=== PATIENT | male | born 1940 ===

== ENCOUNTER 2017-10-25 08:56 | Inpatient (IN) | payer MEDICARE ==
[2017-10-25 09:11] VITALS: BMI 26.4
--- NOTE | 2017-10-25 09:21 | CT ---
PROCEDURE: CT HEAD WITHOUT CONTRAST. HISTORY: Code Stroke COMPARISON: None available. TECHNIQUE: Axial computed tomography images were obtained through the head/brain without intravenous contrast. Radiation dose: Total exam DLP = 1272.05 mGy-cm. This CT exam was performed using one or more of the following dose reduction techniques: Automated exposure control, adjustment of the mA and/or kV according to patient size, and/or use of iterative reconstruction technique. FINDINGS: HEMORRHAGE: No intracranial hemorrhage. BRAIN: Motion artifacts degrade the quality this examination. The garibay-white matter differentiation is well preserved. There is no mass effect or definitive edema pattern appreciate including the cortex. There is expansion of the ventriculosulcal and cisternal spaces however in a pattern most compatible with diffuse cerebral atrophy. No suspicious extra-axial fluid collection is identified in the midline brain anatomy appears grossly nonfocal as imaged. VENTRICLES: Unremarkable. No hydrocephalus. CALVARIUM: Unremarkable. PARANASAL SINUSES: Unremarkable as visualized. No significant inflammatory changes. MASTOID AIR CELLS: Unremarkable as visualized. No inflammatory changes. OTHER FINDINGS: None. IMPRESSION: No CT evidence to suggest intracranial hemorrhage, mass effect or definite ischemic infarction at this time however given clinical history, follow-up CT or MRI is strongly advised as it may be too early to identify an ischemic event. Age-related neuro degenerative changes appear mild. Findings discussed with Dr. Kuhn 10/24/2017, 9:14 a.m..
[2017-10-25 09:32] LABS: BASO # 0.1 K/uL (0.0-0.2); BASO % 0.4 % (0.0-2.0); EOS % 0.2 % (0.0-4.0); HEMATOCRIT 22.4 % (35.0-51.0); LYMPH # 0.8 K/uL (1.0-4.3); LYMPH % 5.5 % (20.0-40.0); MEAN CELL VOLUME 87.1 fL (80.0-94.0); MEAN CORPUSCULAR HEMOGLOBIN 28.4 pg (27.0-31.0); MEAN CORPUSCULAR HGB CONC 32.6 g/dL (33.0-37.0); MEAN PLATELET VOLUME 8.5 fL (7.2-11.7); MONO # 0.9 K/uL (0.0-0.8); MONO % 6.4 % (0.0-10.0); PLATELET COUNT 308 K/uL (130-400); RED CELL DISTRIBUTION WIDTH 14.3 % (11.5-14.5); WHITE BLOOD COUNT 14.8 K/uL (4.8-10.8)
[2017-10-25] MEDS ORDERED: Iodixanol 320 mg/ml 150 ml Bottle IV ONE (09:36)
--- NOTE | 2017-10-25 09:39 | C.PDOC ---
History Of Present Illness 77-year-old male, PMHx includes CVA (w/ residual weakness) and Hypertension, is brought to the emergency department by ALS with complaints of left-sided weakness. Patient found this morning, with left-facial droop and slurred speech. He is unable to speak upon arrival, but able to follow commands. Patient was last known well at 21:30 last night. All other Hx limited due to clinical condition. Time Seen by Provider: 10/25/17 08:59 Chief Complaint (Nursing): Weakness/Neurological Deficit History Per: EMS, Family History/Exam Limitations: Clinical Condition Past Medical History Reviewed: Historical Data, Nursing Documentation, Vital Signs Vital Signs: Last Vital Signs Temp 98.0 F 10/25/17 16:00 Pulse 68 10/25/17 18:00 Resp 30 H 10/25/17 18:00 BP 159/53 H 10/25/17 17:45 Pulse Ox 100 10/25/17 18:00 - Medical History PMH: Depression, HTN Family History: States: No Known Family Hx - Social History Hx Alcohol Use: No (Former) Hx Substance Use: No - Immunization History Hx Tetanus Toxoid Vaccination: No Hx Influenza Vaccination: No Hx Pneumococcal Vaccination: No Review Of Systems Review Of Systems: ROS cannot be obtained secondary to pt's inabilty to answer questions. (CVA) Physical Exam - Physical Exam Appears: Non-toxic, Other (See NIH) Skin: Warm, Dry, No Rash Head: Atraumatic Eye(s): bilateral: Normal Inspection, PERRL Cardiovascular: Rhythm Regular, No Murmur Respiratory: Normal Breath Sounds, No Accessory Muscle Use Neurological/Psych: Other (Left facial droop with left sided weakness. No gaze palsy) ED Course And Treatment - Laboratory Results Result Diagrams: 10/25/17 09:27 10/25/17 09:27 ECG: Interpreted By Me, Viewed By Me ECG Rhythm: Sinus Rhythm ECG Interpretation: No Acute Changes Interpretation Of ECG: LVH. Poor R wave progression and T wave flattening. Rate From EC - Other Rad HEAD/NECK CTA X-Ray: Viewed By Me, Read By Radiologist Interpretation: Accession No. : [id number]. Patient Name / ID : SUE MULLER / [id number]. Exam Date : 10/25/2017 09:05:52 ( Approved ). Study Comment : Sex / Age : M / 77Y. Creator : Dieudonne Douglass MD. Dictator : Dieudonne Douglass MD. Hospital Nursing Assistant : Director Of Mobile Marketing : Dieudonne Douglass MD. Approver2 : Report Date : 10/25/2017 09:19:44. My Comment : . PROCEDURE: CT HEAD WITHOUT CONTRAST. HISTORY: Code Stroke. COMPARISON: None available. TECHNIQUE: Axial computed tomography images were obtained through the head/brain without intravenous contrast. Radiation dose: Total exam DLP = 1272.05 mGy-cm. This CT exam was performed using one or more of the following dose reduction techniques: Automated exposure control, adjustment of the mA and/or kV according to patient size, and/or use of iterative reconstruction technique. FINDINGS: HEMORRHAGE: No intracranial hemorrhage. BRAIN: Motion artifacts degrade the quality this examination. The garibay-white matter differentiation is well preserved. There is no mass effect or definitive edema pattern appreciate including the cortex. There is expansion of the ventriculosulcal and cisternal spaces however in a pattern most compatible with diffuse cerebral atrophy. No suspicious extra-axial fluid collection is identified in the midline brain anatomy appears grossly nonfocal as imaged. VENTRICLES: Unremarkable. No hydrocephalus. CALVARIUM: Unremarkable. PARANASAL SINUSES: Unremarkable as visualized. No significant inflammatory changes. MASTOID AIR CELLS: Unremarkable as visualized. No inflammatory changes. OTHER FINDINGS: None. IMPRESSION: No CT evidence to suggest intracranial hemorrhage, mass effect or definite ischemic infarction at this time however given clinical history, follow-up CT or MRI is strongly advised as it may be too early to identify an ischemic event. Age-related neuro degenerative changes appear mild. Findings discussed with Dr. Kuhn 10/24/2017 , 9:14 a.m.. - CT Scan/US CT HEAD Other Rad Studies (CT/US): Read By Radiologist, Radiology Report Reviewed CT/US Interpretation: Accession No. : [id number]. Patient Name / ID : SUE MULLER / [id number]. Exam Date : 10/25/2017 09:05:52 ( Approved ). Study Comment : Sex / Age : M / 77Y. Creator : Dieudonne Douglass MD. Dictator : Dieudonne Douglass MD. Hospital Nursing Assistant : Director Of Mobile Marketing : Dieudonne Douglass MD. Approver2 : Report Date : 10/25/2017 09:19:44. My Comment : . PROCEDURE: CT HEAD WITHOUT CONTRAST. HISTORY: Code Stroke. COMPARISON: None available. TECHNIQUE: Axial computed tomography images were obtained through the head/brain without intravenous contrast. Radiation dose: Total exam DLP = 1272.05 mGy-cm. This CT exam was performed using one or more of the following dose reduction techniques: Automated exposure control, adjustment of the mA and/or kV according to patient size, and/or use of iterative reconstruction technique. FINDINGS: HEMORRHAGE: No intracranial hemorrhage. BRAIN: Motion artifacts degrade the quality this examination. The garibay-white matter differentiation is well preserved. There is no mass effect or definitive edema pattern appreciate including the cortex. There is expansion of the ventriculosulcal and cisternal spaces however in a pattern most compatible with diffuse cerebral atrophy. No suspicious extra-axial fluid collection is identified in the midline brain anatomy appears grossly nonfocal as imaged. VENTRICLES: Unremarkable. No hydrocephalus. CALVARIUM: Unremarkable. PARANASAL SINUSES: Unremarkable as visualized. No significant inflammatory changes. MASTOID AIR CELLS: Unremarkable as visualized. No inflammatory changes. OTHER FINDINGS: None. IMPRESSION: No CT evidence to suggest intracranial hemorrhage, mass effect or definite ischemic infarction at this time however given clinical history, follow-up CT or MRI is strongly advised as it may be too early to identify an ischemic event. Age-related neuro degenerative changes appear mild. Findings discussed with Dr. Kuhn 10/24/2017 , 9:14 a.m.. Critical Care Time - Critical Care Note Total Time (in mins): 75 Documented critical care: time excludes all time spent performing seperately billable procedures. NIHSS Stroke Scale - Date/Time Evaluation Performed Date Performed: 10/25/17 Time Performed: 09:00 - How Severe is the Stoke Level of Consciousness: 0=Alert LOC to Questions: 1=One correct LOC to commands: 0=Obeys both correctly Best Gaze: 0=Normal Visual: 0=No visual loss Facial: 2=Partial (lower face paralysis) Motor Arm - Left: 3=No effort against gravity (falls immediately) Motor Arm - Right: 0=No drift Motor Leg - Left: 3=No effort against gravity (falls immediately) Motor Leg - Right: 0=No drift Limb Ataxia: 0=Absent Sensory: 1=Mild to moderate loss Best Language: 2=Severe aphasia Dysarthia: 2=Severe, near unintelligible or worse Extinction & Inattention (Neglect): 0=Normal, no object Score: 14 Severity Of Stroke: 5-15= Moderate Stroke rTPA Inclusion/Exclusion - Refusal of Treatment Patient Refused Treatment: No - Inclusion Criteria for Altepase Patient is 18 years or Older: Yes Clinical DX Ischemic Stroke Cause Neurological Deficit: Yes Time of Onset Established Less Than 270 Mins Before TX Begin: No Risk/Benefit Discussed With Patient/Family Member Present: Yes - Exclusion Criteria for Altepase Uncontrolled Hypertension at Time of TX (SBP>185 or DBP>110): No Active Internal Bleeding: No Known Bleeding Diathesis: No Evidence of an Intracranial Hemorrhage: No Evidence Major Acute Infarct w/ Signs Greater Than 1/3 MCA: No Suspicion of Subarachnoid Bleed on PreTX Eval(CT: neg bleed): No - Warning to TPA With Conditions Following Conditions Weighed Against Anticipated Benefit: Yes Condition: Age Greater Than 75 years Medical Decision Making Medical Decision Makin:[address] Brandon, states no intervention at this time; He is requesting CT Head and neck. Plan * Type and Screen * CT Head/Neck * EKG * CMP, HGB A1C, Lipid Panel, Trop I * CBC, PTT, PT * Chest X-Ray * Aspirin * Reassess and Disposition 10:30 ICU called. Pending call back. 11:00 Case was discussed with Dr Nayan Buitrago, who is in ED, evaluating pt at bedside, and is requesting consult for Dr Cunningham Cardiology. Case was discussed w ICU attending , Malathi Concepcion in ED and will admit pt. Patient is not a tpa candidate. Elevated troponin, patient has no chest pain, no st elevation on ekg. Disposition Discussed With Dr.: Christiano Buitrago Doctor Will See Patient In The: ED Counseled Patient/Family Regarding: Studies Performed, Diagnosis - Disposition Disposition: HOSPITALIZED Disposition Time: 11:00 Condition: GUARDED - Clinical Impression Clinical Impression: Acute CVA (cerebrovascular accident), NSTEMI (non-ST elevated myocardial infarction) - Scribe Statement The provider has reviewed the documentation as recorded by the Scribe (Tong Flores) All medical record entries made by the Scribe were at my direction and personally dictated by me. I have reviewed the chart and agree that the record accurately reflects my personal performance of the history, physical exam, medical decision making, and the department course for this patient. I have also personally directed, reviewed, and agree with the discharge instructions and disposition.
[2017-10-25 09:41] LABS: INR 1.1
[2017-10-25 09:47] LABS: ALKALINE PHOSPHATASE 79 U/L (38-126); ALT/SGPT 39 U/L (21-72); AST/SGOT 121 U/L (17-59); BILIRUBIN,TOTAL 0.7 mg/dL (0.2-1.3); BLOOD UREA NITROGEN 28 mg/dL (9-20); CALCIUM 8.2 mg/dl (8.6-10.4); CARBON DIOXIDE 27 mmol/L (22-30); CHLORIDE 102 mmol/L (98-107); CHOLESTEROL 186 mg/dL (0-199); GFR AFRICAN-AMERICAN > 60; GLUCOSE,RANDOM 182 mg/dL (75-110); POTASSIUM 4.2 mmol/L (3.6-5.2); SODIUM 134 mmol/L (132-148); TOTAL PROTEIN 5.9 g/dL (6.3-8.3)
[2017-10-25 09:49] LABS: ALB/GLOB RATIO 1.3 (1.0-2.1)
[2017-10-25 09:58] LABS: BASOPHIL 1 % (0-2); NEUTROPHIL 90 % (50-75); TOTAL CELLS COUNTED 100
[2017-10-25] MEDS ORDERED: Sodium Chloride 0.9% 1,000 ML IV ONE (10:23)
--- NOTE | 2017-10-25 10:24 | CT ---
PROCEDURE: CT Angiography of the Brain. HISTORY: cva COMPARISON: None available. TECHNIQUE: CT angiography of the intracranial and cervical arteries was performed. Coronal and sagittal maximum intensity projection reformated images were generated. IV contrast: Visipaque 320, 100 cc. Radiation dose (DLP): 1059.89 mGy-cm. This CT exam was performed using one or more of the following dose reduction techniques: Automated exposure control, adjustment of the mA and/or kV according to patient size, and/or use of iterative reconstruction technique. FINDINGS: INTERNAL CEREBRAL ARTERIES: Mild nonsignificant stenoses identified at the bilateral internal carotid artery origins due to plaque at the bilateral carotid bulb regions. . The skull base, petrous, cavernous and supraclinoid segments are bilaterally widely patent. ANTERIOR CEREBRAL ARTERIES: Unremarkable. A1 and A2 segments are widely patent. Smaller distal branches unremarkable, as visualized. MIDDLE CEREBRAL ARTERIES: Unremarkable. M1 and M2 segments are widely patent. Perisylvian branches grossly symmetric. POSTERIOR CIRCULATION: Basilar Artery: Unremarkable. Distal Vertebral Arteries: Unremarkable. Posterior Cerebral Arteries: Unremarkable. Posterior Inferior Cerebellar Arteries: Unremarkable. NECK CTA RESULTS: Common carotid arteries: The bilateral common carotid appear widely patent from their origins to their bifurcations with no significant stenosis appreciated. No evidence to suggest common carotid artery dissection. Internal carotid arteries: No significant stenosis is appreciated throughout the cervical internal carotid artery segments bilaterally and there is no evidence of dissection either. Vertebral arteries: The bilateral vertebral arteries appear normal in caliber from their origins to their junction with the basilar artery. Vertebrobasilar system appears left dominant. No significant stenosis or definite pattern of dissection. Incidentally, the bilateral subclavian arteries are widely patent as well as the brachiocephalic artery. ANEURYSM/ VASCULAR MALFORMATIONS: None. OTHER FINDINGS: None. IMPRESSION: Mild atherosclerotic plaques in the bilateral carotid bulb regions causing limited stenosis of the origins of the bilateral charged for without significant stenosis nevertheless. Skullbase bilateral ICA segments appear widely patent as well. Bilateral common carotids are widely patent. [place] arterial vasculature is widely patent without stenosis and appear symmetrical. Left dominant vertebrobasilar system is identified widely patent as well. No arteriovascular malformation or aneurysm identified throughout. Findings discussed with Dr. Barndon 10/25/2017 10:15 a.m..
[2017-10-25] MEDS ORDERED: Sodium Chloride 0.9% 1,000 ML ONE (10:37)
[2017-10-25] MEDS ORDERED: Enoxaparin 80 mg Syringe ONE (11:11)
[2017-10-25] MEDS ORDERED: Enoxaparin 60 mg Syringe SC SCH (11:15)
--- NOTE | 2017-10-25 11:55 | RAD ---
HISTORY: code stroke COMPARISON: No prior. FINDINGS: LUNGS: No active pulmonary disease. PLEURA: No significant pleural effusion identified, no pneumothorax apparent. CARDIOVASCULAR: Patient rotated toward the left accentuating the hilar vascular markings bilaterally. Element of limited CHF is not completely excluded however. OSSEOUS STRUCTURES: No significant abnormalities. VISUALIZED UPPER ABDOMEN: Normal. OTHER FINDINGS: None. IMPRESSION: Questionable limited pulmonary venous congestion/ CHF. No acute infiltrate bilaterally.
[2017-10-25] MEDS ORDERED: Heparin25000 units/250ml 1/2NS 25,000 UNITS/250 ML BAG IV PRN (12:44)
--- NOTE | 2017-10-25 16:17 | CP.PCM.HP ---
History of Present Illness - History of Present Illness History of Present Illness: A 77-year-old male with PMH -CV stroke [with residual weakness], depression and HTN presents with C/Oleft-sided weakness. C/O days left-sided weakness since today morning. Acute onset, rapidly progressive. C/Oleft-sided facial droop since today morning. Acute in onset, rapidly progressive. C/Oslurring of speech since today morning. Acute in onset, rapidly progressive. No C/fever, chills, tinnitus, vertigo, blurring of vision, convulsions, headache, head trauma. Present on Admission - Present on Admission Any Indicators Present on Admission: No Past Patient History - Past Medical History & Family History Past Medical History?: Yes - Past Social History Smoking Status: Former Smoker - CARDIAC Hx Hypertension: Yes - NEUROLOGICAL Hx Neurological Disorder: Yes HX Cerebrovascular Accident: Yes - MUSCULOSKELETAL/RHEUMATOLOGICAL Hx Falls: Yes - PSYCHIATRIC Hx Substance Use: No - ANESTHESIA Hx Anesthesia: No Meds Allergies/Adverse Reactions: Allergies Allergy/AdvReac Type Severity Reaction Status Date / Time No Known Allergies Allergy Verified 10/25/17 12:48 Physical Exam - Constitutional Appears: Well - Head Exam Head Exam: ATRAUMATIC, NORMAL INSPECTION, NORMOCEPHALIC - Eye Exam Eye Exam: EOMI, Normal appearance, PERRL Pupil Exam: NORMAL ACCOMODATION, PERRL - ENT Exam ENT Exam: Mucous Membranes Moist, Normal Exam - Neck Exam Neck exam: Positive for: Normal Inspection - Respiratory Exam Respiratory Exam: Decreased Breath Sounds - Cardiovascular Exam Cardiovascular Exam: REGULAR RHYTHM, +S1, +S2 - GI/Abdominal Exam GI & Abdominal Exam: Diminished Bowel Sounds, Soft - Rectal Exam Rectal Exam: Deferred Results - Vital Signs Recent Vital Signs: Last Vital Signs Temp 97.8 F 10/25/17 12:00 Pulse 67 10/25/17 15:45 Resp 22 10/25/17 15:45 BP 140/70 10/25/17 15:45 Pulse Ox 99 10/25/17 15:45 - Labs Result Diagrams: 10/26/17 07:19 10/26/17 07:19 Labs: Laboratory Results - last 24 hr 10/25/17 10/25/17 10/25/17 09:00 09:27 09:27 WBC 14.8 H RBC 2.57 L Hgb 7.3 L Hct 22.4 L MCV 87.1 MCH 28.4 MCHC 32.6 L RDW 14.3 Plt Count 308 MPV 8.5 Neut % (Auto) 87.5 H Lymph % (Auto) 5.5 L [place] % (Auto) 6.4 Eos % (Auto) 0.2 Baso % (Auto) 0.4 Neut # 13.0 H Lymph # 0.8 L [place] # 0.9 H Eos # 0.0 Baso # 0.1 Neutrophils % (Manual) 90 H Band Neutrophils % 1 Lymphocytes % (Manual) 5 L Monocytes % (Manual) 3 Basophils % (Manual) 1 Platelet Estimate Normal Hypochromasia (manual) Slight PT 11.9 INR 1.1 APTT 25 Sodium 134 Potassium 4.2 Chloride 102 Carbon Dioxide 27 Anion Gap 9 L BUN 28 H Creatinine 1.0 Est GFR ( Amer) > 60 Est GFR (Non-Af Amer) > 60 POC Glucose (mg/dL) Random Glucose 182 H Calcium 8.2 L Total Bilirubin 0.7 AST 121 H ALT 39 Alkaline Phosphatase 79 Troponin I 31.4000 H* Total Protein 5.9 L Albumin 3.4 L Globulin 2.6 Albumin/Globulin Ratio 1.3 Triglycerides 148 Cholesterol 186 LDL Cholesterol Direct 99 HDL Cholesterol 61 Blood Type Antibody Screen 10/25/17 10/25/17 09:27 12:35 WBC RBC Hgb Hct MCV MCH MCHC RDW Plt Count MPV Neut % (Auto) Lymph % (Auto) [place] % (Auto) Eos % (Auto) Baso % (Auto) Neut # Lymph # [place] # Eos # Baso # Neutrophils % (Manual) Band Neutrophils % Lymphocytes % (Manual) Monocytes % (Manual) Basophils % (Manual) Platelet Estimate Hypochromasia (manual) PT INR APTT Sodium Potassium Chloride Carbon Dioxide Anion Gap BUN Creatinine Est GFR ( Amer) Est GFR (Non-Af Amer) POC Glucose (mg/dL) 129 H Random Glucose Calcium Total Bilirubin AST ALT Alkaline Phosphatase Troponin I Total Protein Albumin Globulin Albumin/Globulin Ratio Triglycerides Cholesterol LDL Cholesterol Direct HDL Cholesterol Blood Type O NEGATIVE Antibody Screen Negative
--- NOTE | 2017-10-25 18:03 | CP.PCM.CON ---
History of Present Illness - History of Present Illness History of Present Illness: 77yo M. PMHx multiple CVA's (left sided residual weakness), HTN. Presented with expressive aphasia (new) and left sided hemiparesis, not a candidate for tPA ( out of time window, last seen well prior evening). Also had elevated Troponin' s with no EKG changes, NSTEMI. Review of Systems - Review of Systems All systems: reviewed and no additional remarkable complaints except - Neurological Neurological: Abnormal Speech Past Patient History - Past Medical History & Family History Past Medical History?: Yes - Past Social History Smoking Status: Former Smoker - CARDIAC Hx Hypertension: Yes - NEUROLOGICAL Hx Neurological Disorder: Yes HX Cerebrovascular Accident: Yes - MUSCULOSKELETAL/RHEUMATOLOGICAL Hx Falls: Yes - PSYCHIATRIC Hx Substance Use: No - ANESTHESIA Hx Anesthesia: No Meds Allergies/Adverse Reactions: Allergies Allergy/AdvReac Type Severity Reaction Status Date / Time No Known Allergies Allergy Verified 10/25/17 12:48 - Medications Medications: Current Medications Aspirin (Aspirin Chewable) 81 mg PO DAILY GENNA Enoxaparin Sodium (Lovenox) 75 mg SC Q12H GENNA Sodium Chloride (Sodium Chloride 0.9%) 1,000 mls @ 100 mls/hr IV .Q10H ONE Stop: 10/25/17 20:22 Last Admin: 10/25/17 10:55 Dose: 100 mls/hr Pantoprazole Sodium (Protonix Inj) 40 mg IVP DAILY GENNA Rosuvastatin Calcium (Crestor) 10 mg PO HS GENNA Physical Exam - Head Exam Head Exam: ATRAUMATIC, NORMAL INSPECTION, NORMOCEPHALIC - Eye Exam Eye Exam: EOMI, Normal appearance, PERRL - ENT Exam ENT Exam: Mucous Membranes Moist, Normal Exam - Respiratory Exam Respiratory Exam: Clear to Auscultation Bilateral, NORMAL BREATHING PATTERN - Cardiovascular Exam Cardiovascular Exam: REGULAR RHYTHM - GI/Abdominal Exam GI & Abdominal Exam: Normal Bowel Sounds, Soft. absent: Tenderness - Neurological Exam Neurological exam: Alert Additional comments: expressive aphasia, left sided hemiparesis. - Psychiatric Exam Psychiatric exam: Normal Affect, Normal Mood Results - Vital Signs Recent Vital Signs: Last Vital Signs Temp 98.0 F 10/25/17 16:00 Pulse 73 10/25/17 16:00 Resp 25 H 10/25/17 16:00 BP 140/70 10/25/17 15:45 Pulse Ox 100 10/25/17 16:00 - Labs Result Diagrams: 10/25/17 09:27 10/25/17 09:27 Labs: Laboratory Results - last 24 hr 10/25/17 10/25/17 10/25/17 09:00 09:27 09:27 WBC 14.8 H RBC 2.57 L Hgb 7.3 L Hct 22.4 L MCV 87.1 MCH 28.4 MCHC 32.6 L RDW 14.3 Plt Count 308 MPV 8.5 Neut % (Auto) 87.5 H Lymph % (Auto) 5.5 L [place] % (Auto) 6.4 Eos % (Auto) 0.2 Baso % (Auto) 0.4 Neut # 13.0 H Lymph # 0.8 L [place] # 0.9 H Eos # 0.0 Baso # 0.1 Neutrophils % (Manual) 90 H Band Neutrophils % 1 Lymphocytes % (Manual) 5 L Monocytes % (Manual) 3 Basophils % (Manual) 1 Platelet Estimate Normal Hypochromasia (manual) Slight PT 11.9 INR 1.1 APTT 25 Sodium 134 Potassium 4.2 Chloride 102 Carbon Dioxide 27 Anion Gap 9 L BUN 28 H Creatinine 1.0 Est GFR ( Amer) > 60 Est GFR (Non-Af Amer) > 60 POC Glucose (mg/dL) Random Glucose 182 H Calcium 8.2 L Total Bilirubin 0.7 AST 121 H ALT 39 Alkaline Phosphatase 79 Troponin I 31.4000 H* Total Protein 5.9 L Albumin 3.4 L Globulin 2.6 Albumin/Globulin Ratio 1.3 Triglycerides 148 Cholesterol 186 LDL Cholesterol Direct 99 HDL Cholesterol 61 Blood Type Antibody Screen 10/25/17 10/25/17 10/25/17 09:27 12:35 16:15 WBC RBC Hgb Hct MCV MCH MCHC RDW Plt Count MPV Neut % (Auto) Lymph % (Auto) [place] % (Auto) Eos % (Auto) Baso % (Auto) Neut # Lymph # [place] # Eos # Baso # Neutrophils % (Manual) Band Neutrophils % Lymphocytes % (Manual) Monocytes % (Manual) Basophils % (Manual) Platelet Estimate Hypochromasia (manual) PT INR APTT Sodium Potassium Chloride Carbon Dioxide Anion Gap BUN Creatinine Est GFR ( Amer) Est GFR (Non-Af Amer) POC Glucose (mg/dL) 129 H 145 H Random Glucose Calcium Total Bilirubin AST ALT Alkaline Phosphatase Troponin I Total Protein Albumin Globulin Albumin/Globulin Ratio Triglycerides Cholesterol LDL Cholesterol Direct HDL Cholesterol Blood Type O NEGATIVE Antibody Screen Negative Assessment & Plan (1) NSTEMI (non-ST elevated myocardial infarction) Assessment and Plan: 77yo M. PMHx multiple CVA's (left sided residual weakness), HTN. Presented with new onset stroke symptoms (no tPA) and NSTEMI. Neuro: alert and following commands, expressive aphasia and left sided hemiparesis Pulm: no acute issues, breathing spontaneously on room air CV: hemodynamically stable, ASA, Full dose lovenox, cath when stable. Cardio - Dr. Cunningham Hem: no acute issues Renal: no acute issues, urine output wnl, will monitor Endo: no acute issues GI: heart healthy diet ID: no acute issues DVT proph - full dose lovenox GI proph - protonix Code status - full code Critical Care Time spent 35 minutes Multi-disciplinary rounds were performed with house staff, nursing, speech therapy, respiratory therapy, pharmacy and nutrition with integrated input from the primary team/attending and other consulting services. The documented time is cumulative and includes review of patient data/exams/labs/chart review and examination of the patient on rounds and throughout the day; time is exclusive of any procedures or teaching time. Status: Acute
--- NOTE | 2017-10-25 18:54 | CP.PCM.CON ---
History of Present Illness - History of Present Illness History of Present Illness: Mr. Treva Davison is a 77-year-old man with a past medical history of HTN, DM, previous ischemic strokes, who was last known well last night and was brought in to the ED this morning after he was found with expressive aphasia and worsening left side weakness. He does have some baseline left side weakness as a result of a previous stroke, but it was significantly worse this morning with an NIHSS of 10. He was not a candidate for IV tPA and a CTA of the head/neck did not demonstrate a large vessel occlusion. Labs demonstrated troponins of 31. He was started on Lovenox for treatment of the NSTEMI. Review of Systems - Review of Systems All systems: reviewed and no additional remarkable complaints except Past Patient History - Past Medical History & Family History Past Medical History?: Yes - Past Social History Smoking Status: Former Smoker - CARDIAC Hx Hypertension: Yes - NEUROLOGICAL Hx Neurological Disorder: Yes HX Cerebrovascular Accident: Yes - MUSCULOSKELETAL/RHEUMATOLOGICAL Hx Falls: Yes - PSYCHIATRIC Hx Depression: Yes Hx Substance Use: No - ANESTHESIA Hx Anesthesia: No Meds Allergies/Adverse Reactions: Allergies Allergy/AdvReac Type Severity Reaction Status Date / Time No Known Allergies Allergy Verified 10/25/17 12:48 - Medications Medications: Current Medications Aspirin (Aspirin Chewable) 81 mg PO DAILY [facility] Enoxaparin Sodium (Lovenox) 75 mg SC Q12H [facility] Sodium Chloride (Sodium Chloride 0.9%) 1,000 mls @ 100 mls/hr IV .Q10H ONE Stop: 10/25/17 20:22 Last Admin: 10/25/17 10:55 Dose: 100 mls/hr Pantoprazole Sodium (Protonix Inj) 40 mg IVP DAILY [facility] Last Admin: 10/25/17 18:06 Dose: 40 mg Rosuvastatin Calcium (Crestor) 10 mg PO HS [facility] Physical Exam - Constitutional Appears: Confused - Head Exam Head Exam: ATRAUMATIC, NORMAL INSPECTION, NORMOCEPHALIC - Eye Exam Eye Exam: EOMI, Normal appearance, PERRL - ENT Exam ENT Exam: Mucous Membranes Moist, Normal Exam - Respiratory Exam Respiratory Exam: Clear to Auscultation Bilateral, NORMAL BREATHING PATTERN - Cardiovascular Exam Cardiovascular Exam: REGULAR RHYTHM, +S1, +S2 - GI/Abdominal Exam GI & Abdominal Exam: Normal Bowel Sounds, Soft. absent: Tenderness - Rectal Exam Rectal Exam: Deferred - Extremities Exam Extremities exam: Positive for: normal inspection - Back Exam Back exam: NORMAL INSPECTION - Neurological Exam Neurological exam: Altered, CN II-XII Intact Additional comments: Expressive aphasia, with apparently intact comprehension. He followed commands appropriately. Left facial droop, left upper extremity strength is 0/5 proximally and distally. Left lower extremity strength is 3/5 distally and 2/5 proximally. Right side strength is normal in both upper and lower extremity. NIHSS= 9. Results - Vital Signs Recent Vital Signs: Last Vital Signs Temp 98.0 F 10/25/17 16:00 Pulse 68 10/25/17 18:00 Resp 30 H 10/25/17 18:00 BP 159/53 H 10/25/17 17:45 Pulse Ox 100 10/25/17 18:00 - Labs Result Diagrams: 10/25/17 09:27 10/25/17 09:27 Labs: Laboratory Results - last 24 hr 10/25/17 10/25/17 10/25/17 09:00 09:27 09:27 WBC 14.8 H RBC 2.57 L Hgb 7.3 L Hct 22.4 L MCV 87.1 MCH 28.4 MCHC 32.6 L RDW 14.3 Plt Count 308 MPV 8.5 Neut % (Auto) 87.5 H Lymph % (Auto) 5.5 L [place] % (Auto) 6.4 Eos % (Auto) 0.2 Baso % (Auto) 0.4 Neut # 13.0 H Lymph # 0.8 L [place] # 0.9 H Eos # 0.0 Baso # 0.1 Neutrophils % (Manual) 90 H Band Neutrophils % 1 Lymphocytes % (Manual) 5 L Monocytes % (Manual) 3 Basophils % (Manual) 1 Platelet Estimate Normal Hypochromasia (manual) Slight PT 11.9 INR 1.1 APTT 25 Sodium 134 Potassium 4.2 Chloride 102 Carbon Dioxide 27 Anion Gap 9 L BUN 28 H Creatinine 1.0 Est GFR ( Amer) > 60 Est GFR (Non-Af Amer) > 60 POC Glucose (mg/dL) Random Glucose 182 H Calcium 8.2 L Total Bilirubin 0.7 AST 121 H ALT 39 Alkaline Phosphatase 79 Total Creatine Kinase Troponin I 31.4000 H* Total Protein 5.9 L Albumin 3.4 L Globulin 2.6 Albumin/Globulin Ratio 1.3 Triglycerides 148 Cholesterol 186 LDL Cholesterol Direct 99 HDL Cholesterol 61 Blood Type Antibody Screen 10/25/17 10/25/17 10/25/17 09:27 12:35 16:15 WBC RBC Hgb Hct MCV MCH MCHC RDW Plt Count MPV Neut % (Auto) Lymph % (Auto) [place] % (Auto) Eos % (Auto) Baso % (Auto) Neut # Lymph # [place] # Eos # Baso # Neutrophils % (Manual) Band Neutrophils % Lymphocytes % (Manual) Monocytes % (Manual) Basophils % (Manual) Platelet Estimate Hypochromasia (manual) PT INR APTT Sodium Potassium Chloride Carbon Dioxide Anion Gap BUN Creatinine Est GFR ( Amer) Est GFR (Non-Af Amer) POC Glucose (mg/dL) 129 H 145 H Random Glucose Calcium Total Bilirubin AST ALT Alkaline Phosphatase Total Creatine Kinase Troponin I Total Protein Albumin Globulin Albumin/Globulin Ratio Triglycerides Cholesterol LDL Cholesterol Direct HDL Cholesterol Blood Type O NEGATIVE Antibody Screen Negative 10/25/17 18:15 WBC RBC Hgb Hct MCV MCH MCHC RDW Plt Count MPV Neut % (Auto) Lymph % (Auto) [place] % (Auto) Eos % (Auto) Baso % (Auto) Neut # Lymph # [place] # Eos # Baso # Neutrophils % (Manual) Band Neutrophils % Lymphocytes % (Manual) Monocytes % (Manual) Basophils % (Manual) Platelet Estimate Hypochromasia (manual) PT INR APTT Sodium Potassium Chloride Carbon Dioxide Anion Gap BUN Creatinine Est GFR ( Amer) Est GFR (Non-Af Amer) POC Glucose (mg/dL) Random Glucose Calcium Total Bilirubin AST ALT Alkaline Phosphatase Total Creatine Kinase 401 H Troponin I Total Protein Albumin Globulin Albumin/Globulin Ratio Triglycerides Cholesterol LDL Cholesterol Direct HDL Cholesterol Blood Type Antibody Screen Assessment & Plan (1) Acute CVA (cerebrovascular accident) Assessment and Plan: The patient likely had a cardio-embolic stroke due to NSTEMI. I recommend the followin. Telemetry and ICU admission for close observation and Q1 hour neuro-checks. 2. Continue Lovenox per cardiology for the NSTEMI 3. MRI of the brain without contrast when possible. 4. Echocardiogram with bubble study 5. Lipitor 80 mg dialy 6. PT/OT eval and treatment 7. Check Lipids, HbA1c, TSH, T3/4, B12, folate, homocysteine levels 8. Fluids with NS at 100 mL/hr 9. Permissive HTN (treat BP that is higher than 200/100) 10. Case management consult Thank you. Status: Acute Priority: High (2) NSTEMI (non-ST elevated myocardial infarction) Status: Acute Priority: High
[2017-10-25 18:55] LABS: TROPONIN I 39.3 ng/mL (0.00-0.120)
--- NOTE | 2017-10-25 20:40 | CP.PCM.CON ---
History of Present Illness - History of Present Illness History of Present Illness: 77 Male presented with CVA found to have elevated Troponins Denies chest pain and dyspnea CVA Ischemic Non ST elevation ID ASA 325 daily Plavix 75 daily Statins, B Blockers and Full dose Lovenox Check ECHO Continue to monitor neuro status If no new neuro events Cardiac Cath Thursday 77yo M. PMHx multiple CVA's (left sided residual weakness), HTN. Presented with expressive aphasia (new) and left sided hemiparesis, not a candidate for tPA ( out of time window, last seen well prior evening). Also had elevated Troponin' s with no EKG changes, NSTEMI. Review of Systems - Review of Systems All systems: reviewed and no additional remarkable complaints except - Neurological Neurological: Abnormal Speech Meds Allergies/Adverse Reactions: Allergies Allergy/AdvReac Type Severity Reaction Status Date / Time No Known Allergies Allergy Verified 10/25/17 12:48 - Medications Medications: Current Medications Aspirin (Aspirin Chewable) 81 mg PO DAILY [facility] Enoxaparin Sodium (Lovenox) 75 mg SC Q12H [facility] Sodium Chloride (Sodium Chloride 0.9%) 1,000 mls @ 100 mls/hr IV .Q10H ONE Stop: 10/25/17 20:22 Last Admin: 10/25/17 10:55 Dose: 100 mls/hr Pantoprazole Sodium (Protonix Inj) 40 mg IVP DAILY [facility] Rosuvastatin Calcium (Crestor) 10 mg PO HS [facility] Physical Exam - Head Exam Head Exam: ATRAUMATIC, NORMAL INSPECTION, NORMOCEPHALIC - Eye Exam Eye Exam: EOMI, Normal appearance, PERRL - ENT Exam ENT Exam: Mucous Membranes Moist, Normal Exam - Respiratory Exam Respiratory Exam: Clear to Auscultation Bilateral, NORMAL BREATHING PATTERN - Cardiovascular Exam Cardiovascular Exam: REGULAR RHYTHM - GI/Abdominal Exam GI & Abdominal Exam: Normal Bowel Sounds, Soft. absent: Tenderness - Neurological Exam Neurological exam: Alert Additional comments: expressive aphasia, left sided hemiparesis. - Psychiatric Exam Psychiatric exam: Normal Affect, Normal Mood Past Patient History - Past Medical History & Family History Past Medical History?: Yes - Past Social History Smoking Status: Former Smoker - CARDIAC Hx Hypertension: Yes - NEUROLOGICAL Hx Neurological Disorder: Yes HX Cerebrovascular Accident: Yes - MUSCULOSKELETAL/RHEUMATOLOGICAL Hx Falls: Yes - PSYCHIATRIC Hx Depression: Yes Hx Substance Use: No - ANESTHESIA Hx Anesthesia: No Meds Allergies/Adverse Reactions: Allergies Allergy/AdvReac Type Severity Reaction Status Date / Time No Known Allergies Allergy Verified 10/25/17 12:48 - Medications Medications: Current Medications Aspirin (Aspirin Chewable) 81 mg PO DAILY [facility] Enoxaparin Sodium (Lovenox) 75 mg SC Q12H [facility] Pantoprazole Sodium (Protonix Inj) 40 mg IVP DAILY [facility] Last Admin: 10/25/17 18:06 Dose: 40 mg Rosuvastatin Calcium (Crestor) 10 mg PO HS [facility] Results - Vital Signs Recent Vital Signs: Last Vital Signs Temp 98.2 F 10/25/17 20:00 Pulse 97 H 10/25/17 19:46 Resp 11 L 10/25/17 19:46 BP 107/74 10/25/17 19:47 Pulse Ox 100 10/25/17 20:00 - Labs Result Diagrams: 10/28/17 14:58 10/28/17 03:42 Labs: Laboratory Results - last 24 hr 10/25/17 10/25/17 10/25/17 09:00 09:27 09:27 WBC 14.8 H RBC 2.57 L Hgb 7.3 L Hct 22.4 L MCV 87.1 MCH 28.4 MCHC 32.6 L RDW 14.3 Plt Count 308 MPV 8.5 Neut % (Auto) 87.5 H Lymph % (Auto) 5.5 L [place] % (Auto) 6.4 Eos % (Auto) 0.2 Baso % (Auto) 0.4 Neut # 13.0 H Lymph # 0.8 L [place] # 0.9 H Eos # 0.0 Baso # 0.1 Neutrophils % (Manual) 90 H Band Neutrophils % 1 Lymphocytes % (Manual) 5 L Monocytes % (Manual) 3 Basophils % (Manual) 1 Platelet Estimate Normal Hypochromasia (manual) Slight PT 11.9 INR 1.1 APTT 25 Sodium 134 Potassium 4.2 Chloride 102 Carbon Dioxide 27 Anion Gap 9 L BUN 28 H Creatinine 1.0 Est GFR ( Amer) > 60 Est GFR (Non-Af Amer) > 60 POC Glucose (mg/dL) Random Glucose 182 H Calcium 8.2 L Total Bilirubin 0.7 AST 121 H ALT 39 Alkaline Phosphatase 79 Total Creatine Kinase CK-MB (Mass) Troponin I 31.4000 H* Total Protein 5.9 L Albumin 3.4 L Globulin 2.6 Albumin/Globulin Ratio 1.3 Triglycerides 148 Cholesterol 186 LDL Cholesterol Direct 99 HDL Cholesterol 61 Blood Type Antibody Screen 10/25/17 10/25/17 10/25/17 09:27 12:35 16:15 WBC RBC Hgb Hct MCV MCH MCHC RDW Plt Count MPV Neut % (Auto) Lymph % (Auto) [place] % (Auto) Eos % (Auto) Baso % (Auto) Neut # Lymph # [place] # Eos # Baso # Neutrophils % (Manual) Band Neutrophils % Lymphocytes % (Manual) Monocytes % (Manual) Basophils % (Manual) Platelet Estimate Hypochromasia (manual) PT INR APTT Sodium Potassium Chloride Carbon Dioxide Anion Gap BUN Creatinine Est GFR ( Amer) Est GFR (Non-Af Amer) POC Glucose (mg/dL) 129 H 145 H Random Glucose Calcium Total Bilirubin AST ALT Alkaline Phosphatase Total Creatine Kinase CK-MB (Mass) Troponin I Total Protein Albumin Globulin Albumin/Globulin Ratio Triglycerides Cholesterol LDL Cholesterol Direct HDL Cholesterol Blood Type O NEGATIVE Antibody Screen Negative 10/25/17 18:15 WBC RBC Hgb Hct MCV MCH MCHC RDW Plt Count MPV Neut % (Auto) Lymph % (Auto) [place] % (Auto) Eos % (Auto) Baso % (Auto) Neut # Lymph # [place] # Eos # Baso # Neutrophils % (Manual) Band Neutrophils % Lymphocytes % (Manual) Monocytes % (Manual) Basophils % (Manual) Platelet Estimate Hypochromasia (manual) PT INR APTT Sodium Potassium Chloride Carbon Dioxide Anion Gap BUN Creatinine Est GFR ( Amer) Est GFR (Non-Af Amer) POC Glucose (mg/dL) Random Glucose Calcium Total Bilirubin AST ALT Alkaline Phosphatase Total Creatine Kinase 401 H CK-MB (Mass) 42.0 H Troponin I 39.3000 H* Total Protein Albumin Globulin Albumin/Globulin Ratio Triglycerides Cholesterol LDL Cholesterol Direct HDL Cholesterol Blood Type Antibody Screen Assessment & Plan - Assessment and Plan (Free Text) Assessment: 77yo M. PMHx multiple CVA's (left sided residual weakness), HTN. Presented with new onset stroke symptoms (no tPA) and NSTEMI. Denies chest pain and dyspnea CVA Ischemic Non ST elevation ID ASA 325 daily Plavix 75 daily Statins, B Blockers and Full dose Lovenox Check ECHO Continue to monitor neuro status If no new neuro events Cardiac Cath Thursday Neuro: alert and following commands, expressive aphasia and left sided hemiparesis Pulm: no acute issues, breathing spontaneously on room air CV: hemodynamically stable, ASA, Full dose lovenox, cath when stable. Cardio - Dr. Cunningham Hem: no acute issues Renal: no acute issues, urine output wnl, will monitor Endo: no acute issues GI: heart healthy diet ID: no acute issues DVT proph - full dose lovenox GI proph - protonix Code status - full code
[2017-10-25] MEDS: Enoxaparin 80 mg Syringe SC SCH (22:57)
[2017-10-26 06:45] LABS: TROPONIN I 25.3 ng/mL (0.00-0.120)
[2017-10-26 07:37] LABS: EOS % 0.6 % (0.0-4.0); LYMPH # 0.8 K/uL (1.0-4.3); MONO # 0.6 K/uL (0.0-0.8); PLATELET COUNT 208 K/uL (130-400); RED CELL DISTRIBUTION WIDTH 14.8 % (11.5-14.5)
[2017-10-26 07:45] LABS: BASO % 0.5 % (0.0-2.0); HEMATOCRIT 19.3 % (35.0-51.0); LYMPH % 9.6 % (20.0-40.0); MEAN CELL VOLUME 88.6 fL (80.0-94.0); MEAN CORPUSCULAR HEMOGLOBIN 29.7 pg (27.0-31.0); MEAN CORPUSCULAR HGB CONC 33.6 g/dL (33.0-37.0); MEAN PLATELET VOLUME 9.7 fL (7.2-11.7); MONO % 7.1 % (0.0-10.0); NRBC % 0.1 % (0.0-2.0); WHITE BLOOD COUNT 8.5 K/uL (4.8-10.8)
[2017-10-26 08:13] LABS: ALB/GLOB RATIO 1.3 (1.0-2.1); ALKALINE PHOSPHATASE 63 U/L (38-126); ALT/SGPT 40 U/L (21-72); AST/SGOT 72 U/L (17-59); BILIRUBIN,TOTAL 0.5 mg/dL (0.2-1.3); BLOOD UREA NITROGEN 23 mg/dL (9-20); CALCIUM 7.8 mg/dl (8.6-10.4); CARBON DIOXIDE 27 mmol/L (22-30); CHLORIDE 107 mmol/L (98-107); GFR AFRICAN-AMERICAN > 60; GLUCOSE,RANDOM 126 mg/dL (75-110); POTASSIUM 4.2 mmol/L (3.6-5.2); SODIUM 138 mmol/L (132-148)
[2017-10-26 09:27] LABS: EOSINOPHIL 2 % (0-4); TOTAL CELLS COUNTED 100
[2017-10-26 09:28] LABS: NEUTROPHIL 86 % (50-75)
[2017-10-26] MEDS: Enoxaparin 80 mg Syringe SC SCH (11:32)
--- NOTE | 2017-10-26 12:08 | CT ---
PROCEDURE: CT HEAD WITHOUT CONTRAST. HISTORY: repeat head ct - prev code stroke COMPARISON: 10/25/2017 TECHNIQUE: Axial computed tomography images were obtained through the head/brain without intravenous contrast. Radiation dose: Total exam DLP = 2217.90 mGy-cm. This CT exam was performed using one or more of the following dose reduction techniques: Automated exposure control, adjustment of the mA and/or kV according to patient size, and/or use of iterative reconstruction technique. FINDINGS: HEMORRHAGE: No intracranial hemorrhage. BRAIN: No mass effect or edema. Mild to moderate diffuse age-appropriate cerebral atrophy. There is moderate to severe chronic periventricular white matter lucency with patchy and confluent deep and subcortical white matter lucency, consistent with microvascular ischemic change. There is no evidence of acute infarct. VENTRICLES: Unremarkable. No hydrocephalus. CALVARIUM: Unremarkable. PARANASAL SINUSES: Chronic left maxillary sinusitis with almost complete opacification of the left maxillary antrum. MASTOID AIR CELLS: Unremarkable as visualized. No inflammatory changes. OTHER FINDINGS: None. IMPRESSION: No evidence of acute infarct. No intracranial mass or hemorrhage. Age related atrophy and chronic white matter ischemic change. Chronic left maxillary sinusitis.
--- NOTE | 2017-10-26 12:46 | CP.PCM.PN ---
Subjective - Date & Time of Evaluation Date of Evaluation: 10/26/17 Time of Evaluation: 12:43 - Subjective Subjective: Mr. Treva Davison was seen and examined at the bedside in the ICU. He is alert, oriented. He is able to answer questions appropriately. speech is clear, follows simple commands. At present, he is receiving PRBC due to his low hgb. There was no untoward events overnight. Objective - Vital Signs/Intake and Output Vital Signs (last 24 hours): Temp Pulse Resp BP Pulse Ox 98 F 72 28 H 166/75 H 99 10/26/17 12:18 10/26/17 12:18 10/26/17 12:18 10/26/17 12:18 10/26/17 11:48 Intake and Output: 10/26/17 10/26/17 06:59 18:59 Intake Total 1200 50 Balance 1200 50 - Medications Medications: Current Medications Aspirin (Aspirin Chewable) 81 mg PO DAILY [facility] Last Admin: 10/26/17 10:24 Dose: 81 mg Enoxaparin Sodium (Lovenox) 75 mg SC Q12H [facility] Last Admin: 10/26/17 11:32 Dose: 75 mg Pantoprazole Sodium (Protonix Inj) 40 mg IVP DAILY [facility] Last Admin: 10/26/17 09:47 Dose: 40 mg Rosuvastatin Calcium (Crestor) 10 mg PO HS [facility] - Labs Labs: 10/26/17 07:19 10/26/17 07:19 PT 11.9 SECONDS (9.7-12.2) 10/25/17 09:00 INR 1.1 10/25/17 09:00 APTT 25 SECONDS (21-34) 10/25/17 09:00 - Constitutional Appears: No Acute Distress - Head Exam Head Exam: ATRAUMATIC - Neurological Exam Neurological Exam: Alert, Awake, CN II-XII Intact Neuro motor strength exam: Left Upper Extremity: 3, Right Upper Extremity: 5, Left Lower Extremity: 4, Right Lower Extremity: 5 Additional comments: NIHSS-4, According to staff , speech is more clear in comparison from yesterday. He is still a left arm drift. Sensation is asymmetrical. Assessment and Plan - Assessment and Plan (Free Text) Assessment: CVA Case discussed with Dr. Brandon, continue all current medical, physical, and occupational regimen. recommend MRI of the brain when possible post blood transfusion.
--- NOTE | 2017-10-26 12:46 | CP.CCUPN ---
CCU Subjective - Physician Review Subjective (Free Text): PGY1 ICU Progress Note for Dr. Rogel Patient seen and examined at bedside this morning. Patient is awake and alert with family at bedside. Patient's daughter answered most of the questions for the patient due to language barrier, but patient answered questions appropriately. He was able to follow simple commands. He did not have any complaints at this time. CCU Objective - Vital Signs / Intake & Output Vital Signs (Last 4 hours): Vital Signs Temp Pulse Resp BP Pulse Ox 10/26/17 12:18 98 F 72 28 H 166/75 H 10/26/17 12:03 97.8 F 71 26 H 153/69 H 10/26/17 11:48 98.9 F 70 28 H 153/69 H 99 10/26/17 11:11 78 17 10/26/17 11:09 148/81 10/26/17 10:52 78 100 10/26/17 10:45 80 29 H 148/81 99 10/26/17 10:00 90 20 100 10/26/17 09:53 80 27 H 110/48 L 100 10/26/17 09:44 69 26 H 110/48 L 100 10/26/17 09:00 76 19 100 10/26/17 08:44 74 24 131/56 L 100 Intake and Output (Last 8hrs): Intake & Output 10/25/17 10/26/17 10/26/17 22:59 06:59 14:59 Intake Total 800 800 50 Balance 800 800 50 Weight 162 lb Intake: Intake, IV Amount 800 800 0 Right Antecubital 800 800 0 Oral 0 0 50 Blood Product 0 Red Blood Cells Cpd As1 0 Lr Unit [id number] Other: # Voids Urine, Voided 1 1 0 # Bowel Movements 0 0 - Physical Exam Head: Positive for: Atraumatic, Normocephalic Pupils: Positive for: PERRL Extroacular Muscles: Positive for: EOMI Mouth: Positive for: Moist Mucous Membranes Respiratory/Chest: Positive for: Clear to Auscultation, Good Air Exchange. Negative for: Respiratory Distress, Accessory Muscle Use Cardiovascular: Positive for: Regular Rate and Rhythm Abdomen: Positive for: Normal Bowel Sounds. Negative for: Tenderness, Distention Neurological: Positive for: Other (left arm drift (baseline deficit from previous stroke)). Negative for: Speech Normal (improving) Skin: Positive for: Warm, Dry Psychiatric: Positive for: Alert, Oriented x 3 - Medications Active Medications: Active Medications Generic Name Dose Route Start Last Admin Trade Name Joanna PRN Reason Stop Dose Admin Aspirin 81 mg 10/26/17 10:00 10/26/17 10:24 Aspirin Chewable PO 81 mg DAILY GENNA Administration Enoxaparin Sodium 75 mg 10/25/17 22:00 10/26/17 11:32 Lovenox SC 75 mg Q12H GENNA Administration Pantoprazole Sodium 40 mg 10/25/17 17:15 10/26/17 09:47 Protonix Inj IVP 40 mg DAILY GENNA Administration Rosuvastatin Calcium 10 mg 10/26/17 22:00 Crestor PO HS GENNA - Patient Studies Lab Studies: Lab Studies 10/26/17 10/26/17 10/26/17 Range/Units 11:39 07:36 07:19 WBC (4.8-10.8) K/uL RBC (4.40-5.90) Mil/uL Hgb (12.0-18.0) g/dL Hct (35.0-51.0) % MCV (80.0-94.0) fL MCH (27.0-31.0) pg MCHC (33.0-37.0) g/dL RDW (11.5-14.5) % Plt Count (130-400) K/uL MPV (7.2-11.7) fL Neut % (Auto) (50.0-75.0) % Lymph % (Auto) (20.0-40.0) % [place] % (Auto) (0.0-10.0) % Eos % (Auto) (0.0-4.0) % Baso % (Auto) (0.0-2.0) % Neut # (1.8-7.0) K/uL Lymph # (1.0-4.3) K/uL [place] # (0.0-0.8) K/uL Eos # (0.0-0.7) K/uL Baso # (0.0-0.2) K/uL Neutrophils % (Manual) (50-75) % Band Neutrophils % (0-2) % Lymphocytes % (Manual) (20-40) % Monocytes % (Manual) (0-10) % Eosinophils % (Manual) (0-4) % Platelet Estimate (NORMAL) Polychromasia Hypochromasia (manual) Ovalocytes Sodium 138 (132-148) mmol/L Potassium 4.2 (3.6-5.2) mmol/L Chloride 107 (98-107) mmol/L Carbon Dioxide 27 (22-30) mmol/L Anion Gap 9 L (10-20) BUN 23 H (9-20) mg/dL Creatinine 1.0 (0.8-1.5) mg/dL Est GFR ( Amer) > 60 Est GFR (Non-Af Amer) > 60 POC Glucose (mg/dL) 168 H 142 H (65-110) mg/dL Random Glucose 126 H (75-110) mg/dL Hemoglobin A1c (4.2-6.5) % Calcium 7.8 L (8.6-10.4) mg/dl Total Bilirubin 0.5 (0.2-1.3) mg/dL AST 72 H D (17-59) U/L ALT 40 (21-72) U/L Alkaline Phosphatase 63 (38-126) U/L Total Creatine Kinase (55-170) U/L CK-MB (Mass) (0.0-3.38) ng/mL Troponin I (0.00-0.120) ng/mL Total Protein 5.0 L (6.3-8.3) g/dL Albumin 2.8 L (3.5-5.0) g/dL Globulin 2.2 (2.2-3.9) gm/dL Albumin/Globulin Ratio 1.3 (1.0-2.1) Blood Type Antibody Screen 10/26/17 10/26/17 10/26/17 Range/Units 07:19 06:12 00:52 WBC 8.5 (4.8-10.8) K/uL RBC 2.18 L (4.40-5.90) Mil/uL Hgb 6.5 L* (12.0-18.0) g/dL Hct 19.3 L (35.0-51.0) % MCV 88.6 (80.0-94.0) fL MCH 29.7 (27.0-31.0) pg MCHC 33.6 (33.0-37.0) g/dL RDW 14.8 H (11.5-14.5) % Plt Count 208 D (130-400) K/uL MPV 9.7 (7.2-11.7) fL Neut % (Auto) 82.2 H (50.0-75.0) % Lymph % (Auto) 9.6 L (20.0-40.0) % [place] % (Auto) 7.1 (0.0-10.0) % Eos % (Auto) 0.6 (0.0-4.0) % Baso % (Auto) 0.5 (0.0-2.0) % Neut # 7.0 (1.8-7.0) K/uL Lymph # 0.8 L (1.0-4.3) K/uL [place] # 0.6 (0.0-0.8) K/uL Eos # 0.0 (0.0-0.7) K/uL Baso # 0.0 (0.0-0.2) K/uL Neutrophils % (Manual) 86 H (50-75) % Band Neutrophils % 1 (0-2) % Lymphocytes % (Manual) 7 L (20-40) % Monocytes % (Manual) 4 (0-10) % Eosinophils % (Manual) 2 (0-4) % Platelet Estimate Normal (NORMAL) Polychromasia Slight Hypochromasia (manual) Slight Ovalocytes Slight Sodium (132-148) mmol/L Potassium (3.6-5.2) mmol/L Chloride (98-107) mmol/L Carbon Dioxide (22-30) mmol/L Anion Gap (10-20) BUN (9-20) mg/dL Creatinine (0.8-1.5) mg/dL Est GFR ( Amer) Est GFR (Non-Af Amer) POC Glucose (mg/dL) 146 H (65-110) mg/dL Random Glucose (75-110) mg/dL Hemoglobin A1c (4.2-6.5) % Calcium (8.6-10.4) mg/dl Total Bilirubin (0.2-1.3) mg/dL AST (17-59) U/L ALT (21-72) U/L Alkaline Phosphatase (38-126) U/L Total Creatine Kinase 214 H (55-170) U/L CK-MB (Mass) 17.6 H (0.0-3.38) ng/mL Troponin I 25.3000 H* (0.00-0.120) ng/mL Total Protein (6.3-8.3) g/dL Albumin (3.5-5.0) g/dL Globulin (2.2-3.9) gm/dL Albumin/Globulin Ratio (1.0-2.1) Blood Type Antibody Screen 10/25/17 10/25/17 10/25/17 Range/Units 18:15 16:15 09:27 WBC (4.8-10.8) K/uL RBC (4.40-5.90) Mil/uL Hgb (12.0-18.0) g/dL Hct (35.0-51.0) % MCV (80.0-94.0) fL MCH (27.0-31.0) pg MCHC (33.0-37.0) g/dL RDW (11.5-14.5) % Plt Count (130-400) K/uL MPV (7.2-11.7) fL Neut % (Auto) (50.0-75.0) % Lymph % (Auto) (20.0-40.0) % [place] % (Auto) (0.0-10.0) % Eos % (Auto) (0.0-4.0) % Baso % (Auto) (0.0-2.0) % Neut # (1.8-7.0) K/uL Lymph # (1.0-4.3) K/uL [place] # (0.0-0.8) K/uL Eos # (0.0-0.7) K/uL Baso # (0.0-0.2) K/uL Neutrophils % (Manual) (50-75) % Band Neutrophils % (0-2) % Lymphocytes % (Manual) (20-40) % Monocytes % (Manual) (0-10) % Eosinophils % (Manual) (0-4) % Platelet Estimate (NORMAL) Polychromasia Hypochromasia (manual) Ovalocytes Sodium (132-148) mmol/L Potassium (3.6-5.2) mmol/L Chloride (98-107) mmol/L Carbon Dioxide (22-30) mmol/L Anion Gap (10-20) BUN (9-20) mg/dL Creatinine (0.8-1.5) mg/dL Est GFR ( Amer) Est GFR (Non-Af Amer) POC Glucose (mg/dL) 145 H (65-110) mg/dL Random Glucose (75-110) mg/dL Hemoglobin A1c (4.2-6.5) % Calcium (8.6-10.4) mg/dl Total Bilirubin (0.2-1.3) mg/dL AST (17-59) U/L ALT (21-72) U/L Alkaline Phosphatase (38-126) U/L Total Creatine Kinase 401 H (55-170) U/L CK-MB (Mass) 42.0 H (0.0-3.38) ng/mL Troponin I 39.3000 H* (0.00-0.120) ng/mL Total Protein (6.3-8.3) g/dL Albumin (3.5-5.0) g/dL Globulin (2.2-3.9) gm/dL Albumin/Globulin Ratio (1.0-2.1) Blood Type O NEGATIVE Antibody Screen Negative 10/25/17 Range/Units 09:27 WBC (4.8-10.8) K/uL RBC (4.40-5.90) Mil/uL Hgb (12.0-18.0) g/dL Hct (35.0-51.0) % MCV (80.0-94.0) fL MCH (27.0-31.0) pg MCHC (33.0-37.0) g/dL RDW (11.5-14.5) % Plt Count (130-400) K/uL MPV (7.2-11.7) fL Neut % (Auto) (50.0-75.0) % Lymph % (Auto) (20.0-40.0) % [place] % (Auto) (0.0-10.0) % Eos % (Auto) (0.0-4.0) % Baso % (Auto) (0.0-2.0) % Neut # (1.8-7.0) K/uL Lymph # (1.0-4.3) K/uL [place] # (0.0-0.8) K/uL Eos # (0.0-0.7) K/uL Baso # (0.0-0.2) K/uL Neutrophils % (Manual) (50-75) % Band Neutrophils % (0-2) % Lymphocytes % (Manual) (20-40) % Monocytes % (Manual) (0-10) % Eosinophils % (Manual) (0-4) % Platelet Estimate (NORMAL) Polychromasia Hypochromasia (manual) Ovalocytes Sodium (132-148) mmol/L Potassium (3.6-5.2) mmol/L Chloride (98-107) mmol/L Carbon Dioxide (22-30) mmol/L Anion Gap (10-20) BUN (9-20) mg/dL Creatinine (0.8-1.5) mg/dL Est GFR ( Amer) Est GFR (Non-Af Amer) POC Glucose (mg/dL) (65-110) mg/dL Random Glucose (75-110) mg/dL Hemoglobin A1c 7.2 H (4.2-6.5) % Calcium (8.6-10.4) mg/dl Total Bilirubin (0.2-1.3) mg/dL AST (17-59) U/L ALT (21-72) U/L Alkaline Phosphatase (38-126) U/L Total Creatine Kinase (55-170) U/L CK-MB (Mass) (0.0-3.38) ng/mL Troponin I (0.00-0.120) ng/mL Total Protein (6.3-8.3) g/dL Albumin (3.5-5.0) g/dL Globulin (2.2-3.9) gm/dL Albumin/Globulin Ratio (1.0-2.1) Blood Type Antibody Screen Laboratory Results - last 24 hr 10/25/17 10/25/17 10/25/17 09:27 09:27 16:15 WBC RBC Hgb Hct MCV MCH MCHC RDW Plt Count MPV Neut % (Auto) Lymph % (Auto) [place] % (Auto) Eos % (Auto) Baso % (Auto) Neut # Lymph # [place] # Eos # Baso # Neutrophils % (Manual) Band Neutrophils % Lymphocytes % (Manual) Monocytes % (Manual) Eosinophils % (Manual) Platelet Estimate Polychromasia Hypochromasia (manual) Ovalocytes Sodium Potassium Chloride Carbon Dioxide Anion Gap BUN Creatinine Est GFR ( Amer) Est GFR (Non-Af Amer) POC Glucose (mg/dL) 145 H Random Glucose Hemoglobin A1c 7.2 H Calcium Total Bilirubin AST ALT Alkaline Phosphatase Total Creatine Kinase CK-MB (Mass) Troponin I Total Protein Albumin Globulin Albumin/Globulin Ratio Blood Type O NEGATIVE Antibody Screen Negative 10/25/17 10/26/17 10/26/17 18:15 00:52 06:12 WBC RBC Hgb Hct MCV MCH MCHC RDW Plt Count MPV Neut % (Auto) Lymph % (Auto) [place] % (Auto) Eos % (Auto) Baso % (Auto) Neut # Lymph # [place] # Eos # Baso # Neutrophils % (Manual) Band Neutrophils % Lymphocytes % (Manual) Monocytes % (Manual) Eosinophils % (Manual) Platelet Estimate Polychromasia Hypochromasia (manual) Ovalocytes Sodium Potassium Chloride Carbon Dioxide Anion Gap BUN Creatinine Est GFR ( Amer) Est GFR (Non-Af Amer) POC Glucose (mg/dL) 146 H Random Glucose Hemoglobin A1c Calcium Total Bilirubin AST ALT Alkaline Phosphatase Total Creatine Kinase 401 H 214 H CK-MB (Mass) 42.0 H 17.6 H Troponin I 39.3000 H* 25.3000 H* Total Protein Albumin Globulin Albumin/Globulin Ratio Blood Type Antibody Screen 10/26/17 10/26/17 10/26/17 07:19 07:19 07:36 WBC 8.5 RBC 2.18 L Hgb 6.5 L* Hct 19.3 L MCV 88.6 MCH 29.7 MCHC 33.6 RDW 14.8 H Plt Count 208 D MPV 9.7 Neut % (Auto) 82.2 H Lymph % (Auto) 9.6 L [place] % (Auto) 7.1 Eos % (Auto) 0.6 Baso % (Auto) 0.5 Neut # 7.0 Lymph # 0.8 L [place] # 0.6 Eos # 0.0 Baso # 0.0 Neutrophils % (Manual) 86 H Band Neutrophils % 1 Lymphocytes % (Manual) 7 L Monocytes % (Manual) 4 Eosinophils % (Manual) 2 Platelet Estimate Normal Polychromasia Slight Hypochromasia (manual) Slight Ovalocytes Slight Sodium 138 Potassium 4.2 Chloride 107 Carbon Dioxide 27 Anion Gap 9 L BUN 23 H Creatinine 1.0 Est GFR ( Amer) > 60 Est GFR (Non-Af Amer) > 60 POC Glucose (mg/dL) 142 H Random Glucose 126 H Hemoglobin A1c Calcium 7.8 L Total Bilirubin 0.5 AST 72 H D ALT 40 Alkaline Phosphatase 63 Total Creatine Kinase CK-MB (Mass) Troponin I Total Protein 5.0 L Albumin 2.8 L Globulin 2.2 Albumin/Globulin Ratio 1.3 Blood Type Antibody Screen 10/26/17 11:39 WBC RBC Hgb Hct MCV MCH MCHC RDW Plt Count MPV Neut % (Auto) Lymph % (Auto) [place] % (Auto) Eos % (Auto) Baso % (Auto) Neut # Lymph # [place] # Eos # Baso # Neutrophils % (Manual) Band Neutrophils % Lymphocytes % (Manual) Monocytes % (Manual) Eosinophils % (Manual) Platelet Estimate Polychromasia Hypochromasia (manual) Ovalocytes Sodium Potassium Chloride Carbon Dioxide Anion Gap BUN Creatinine Est GFR ( Amer) Est GFR (Non-Af Amer) POC Glucose (mg/dL) 168 H Random Glucose Hemoglobin A1c Calcium Total Bilirubin AST ALT Alkaline Phosphatase Total Creatine Kinase CK-MB (Mass) Troponin I Total Protein Albumin Globulin Albumin/Globulin Ratio Blood Type Antibody Screen EKG/Cardiology Studies: Cardiology / EKG Studies 10/25/17 17:30 ELECTROCARDIOGRAM Routine Comment: Mode Of Transportation: PORTABLE Reason For Exam: NSTEMI 10/26/17 01:30 EKG [ELECTROCARDIOGRAM] Routine Comment: Mode Of Transportation: PORTABLE Reason For Exam: NSTEMI Fingerstick Blood Sugar Results: 142 Review of Systems - Review of Systems All systems: reviewed and no additional remarkable complaints except (as per HPI ) Critical Care Progress Note - Nutrition Nutrition: Nutrition Category Date Time Status Heart Healthy Diet [DIET] Diets 10/26/17 Lunch Active Assessment/Plan - Assessment and Plan (Free Text) Assessment: 77 year old male with a past medical history of multiple CVA (residual sided residual weakness) presenting with new onset stroke symptoms (no tPA) and NSTEMI Plan: Neuro: Dr. Brandon consulted, help appreciated Repeat head CT 10/26 - No evidence of acute infarct. No intracranial mass or hemorrhage. Age related atrophy and chronic white matter ischemic change. Chronic left maxillary sinusitis. Alert and following commands. Expressive aphasia improving. f/u neuro recs - recommend MRI of brain after blood transfusion CV: Dr. Cunningham consulted, help appreciated NSTEMI Trop 25.3/39.3/31.4 Will plan for cardiac cath once stable Lovenox 75mg SC BID --> decreased to 40mg SC daily, per Dr. Cunningham Aspirin 81mg PO daily Crestor 10mg PO HS f/u cardio recs Hem: Hgb 6.5 from 7.3 (10/25) Transfused 2 units of pRBCs f/u repeat post transfusion CBC f/u stool occult blood Case discussed with Dr. Juan F Chery Harvinder PGY1
[2017-10-26] MEDS: Vitamins A & D Oint UD Foilpak TOP PRN (18:03)
--- NOTE | 2017-10-26 19:47 | CP.PCM.PN ---
Subjective - Date & Time of Evaluation Date of Evaluation: 10/26/17 Time of Evaluation: 15:00 - Subjective Subjective: clinically same Objective - Vital Signs/Intake and Output Vital Signs (last 24 hours): Temp Pulse Resp BP Pulse Ox 97.6 F 63 30 H 174/154 H 98 10/26/17 18:15 10/26/17 19:35 10/26/17 19:35 10/26/17 19:35 10/26/17 19:35 Intake and Output: 10/26/17 10/27/17 18:59 06:59 Intake Total 1575 0 Output Total 200 0 Balance 1375 0 - Medications Medications: Current Medications Aspirin (Aspirin Chewable) 81 mg PO DAILY [facility] Last Admin: 10/26/17 10:24 Dose: 81 mg Enoxaparin Sodium (Lovenox) 40 mg SC DAILY [facility] Hydralazine HCl (Apresoline) 25 mg PO BID [facility] Last Admin: 10/26/17 17:04 Dose: 25 mg Metoprolol Tartrate (Lopressor) 50 mg PO BID [facility] Last Admin: 10/26/17 17:04 Dose: 50 mg Pantoprazole Sodium (Protonix Inj) 40 mg IVP DAILY [facility] Last Admin: 10/26/17 09:47 Dose: 40 mg Rosuvastatin Calcium (Crestor) 10 mg PO HS [facility] Vitamin A (Vitamin A & D Oint Ud Foilpak) 1 ea TOP Q6H PRN PRN Reason: Dry skin Last Admin: 10/26/17 18:03 Dose: 1 ea - Labs Labs: 10/26/17 07:19 10/26/17 07:19 PT 11.9 SECONDS (9.7-12.2) 10/25/17 09:00 INR 1.1 10/25/17 09:00 APTT 25 SECONDS (21-34) 10/25/17 09:00
--- NOTE | 2017-10-26 23:12 | CARD ---
APPROVED REPORT EKG Measurement Heart [id number] <Conclusion> Sinus rhythm with fusion complexes Lateral infarct, age undetermined Abnormal ECG
--- NOTE | 2017-10-26 23:14 | CARD ---
APPROVED REPORT EKG Measurement Heart [id number] <Conclusion> Normal sinus rhythm Minimal voltage criteria for LVH, may be normal variant Nonspecific ST and T wave abnormality Abnormal ECG
--- NOTE | 2017-10-26 23:19 | CARD ---
APPROVED REPORT EKG Measurement Heart [id number] <Conclusion> Normal sinus rhythm Voltage criteria for left ventricular hypertrophy Abnormal ECG
[2017-10-26 23:42] LABS: HEMATOCRIT 21.7 % (35.0-51.0); MEAN CELL VOLUME 89.1 fL (80.0-94.0); MEAN CORPUSCULAR HEMOGLOBIN 29.9 pg (27.0-31.0); MEAN CORPUSCULAR HGB CONC 33.5 g/dL (33.0-37.0); MEAN PLATELET VOLUME 9.3 fL (7.2-11.7); RED CELL DISTRIBUTION WIDTH 14.4 % (11.5-14.5); WHITE BLOOD COUNT 8.6 K/uL (4.8-10.8)
[2017-10-27 06:48] LABS: BASO # 0.1 K/uL (0.0-0.2); BASO % 0.6 % (0.0-2.0); EOS # 0.1 K/uL (0.0-0.7); EOS % 1.3 % (0.0-4.0); HEMATOCRIT 23.9 % (35.0-51.0); LYMPH # 0.8 K/uL (1.0-4.3); LYMPH % 9.1 % (20.0-40.0); MEAN CELL VOLUME 89.3 fL (80.0-94.0); MEAN CORPUSCULAR HEMOGLOBIN 30.3 pg (27.0-31.0); MEAN CORPUSCULAR HGB CONC 33.9 g/dL (33.0-37.0); MEAN PLATELET VOLUME 9.3 fL (7.2-11.7); MONO # 0.7 K/uL (0.0-0.8); MONO % 7.9 % (0.0-10.0); NRBC % 0.1 % (0.0-2.0); PLATELET COUNT 194 K/uL (130-400); RED CELL DISTRIBUTION WIDTH 14.2 % (11.5-14.5); WHITE BLOOD COUNT 8.9 K/uL (4.8-10.8)
[2017-10-27 07:03] LABS: ALB/GLOB RATIO 0.9 (1.0-2.1); ALKALINE PHOSPHATASE 43 U/L (38-126); ALT/SGPT 36 U/L (21-72); AST/SGOT 39 U/L (17-59); BILIRUBIN,TOTAL 0.8 mg/dL (0.2-1.3); BLOOD UREA NITROGEN 41 mg/dL (9-20); CALCIUM 7.6 mg/dl (8.6-10.4); CARBON DIOXIDE 25 mmol/L (22-30); CHLORIDE 109 mmol/L (98-107); GFR AFRICAN-AMERICAN > 60; GLUCOSE,RANDOM 135 mg/dL (75-110); MAGNESIUM 1.7 mg/dL (1.6-2.3); PHOSPHOROUS 3.1 mg/dL (2.5-4.5); POTASSIUM 4.5 mmol/L (3.6-5.2); SODIUM 138 mmol/L (132-148); TOTAL PROTEIN 5.5 g/dL (6.3-8.3)
--- NOTE | 2017-10-27 07:03 | CT ---
EXAM: CT Head Without Intravenous Contrast CLINICAL HISTORY: 77 years old, male; Signs and symptoms; Weakness, facial; Additional info: Left facial weakness, aphasia TECHNIQUE: Axial computed tomography images of the head/brain without intravenous contrast. All CT scans at this facility use one or more dose reduction techniques, viz.: automated exposure control; ma/kV adjustment per patient size (including targeted exams where dose is matched to indication; i.e. head); or iterative reconstruction technique. Coronal and sagittal reformatted images were created and reviewed. COMPARISON: No relevant prior studies available. FINDINGS: Brain: Mild atrophy. No intracranial hemorrhage. No mass. Multiple scattered foci of decreased attenuation within periventricular/subcortical white matter. Ill-defined decreased attenuation within RIGHT parietal region with apparent loss of garibay-white matter differentiation. Ventricles: No hydrocephalus. Bones/joints: No acute fracture. Soft tissues: Unremarkable. Vasculature: Mild atherosclerotic disease of intracranial arteries. Sinuses: Near complete opacification of LEFT maxillary sinus. Scattered minimal mucosal thickening of ethmoid sinuses. Mastoid air cells: No mastoid effusion. Orbits: Unremarkable as visualized. IMPRESSION: 1. Suspect acute infarction within RIGHT parietal region. Recommend MRI. 2. Chronic ischemic white matter changes. 3. Sinus disease. 4. Incidental/non-acute findings are described above.
[2017-10-27 08:08] LABS: FOLATE 13.2 ng/mL
--- NOTE | 2017-10-27 08:12 | CP.PCM.PN ---
Subjective - Date & Time of Evaluation Date of Evaluation: 10/27/17 Time of Evaluation: 07:49 - Subjective Subjective: Patient was last seen communicating around 4 am, when prbc transfusion finished , then was seen for am care around 5 am, patient was difficult to arouse, then was noticed to have left facial weakness and was not moving left arm as compared to the right. Patient was aphasic at the time of my eval, weak left side of the face, with angle going down, not moving left arm left leg. Able to move right arm, right leg. Sensory was difficult to check, as patient would not be able to communicate, no gaze preference, corneal and pupillary reflexes present. CT brain done this time showed reduced wharton white differentiation in the right parietal region suggesting changes form recent events of presentation, also increasing risk of new event. Therapeutic lovenox was stopped yesterday in suspicion of acute bleeding. Patient this am also had jared melena. VS maintained, echo report pending. Hydralazine and cozzar stopped to allow brain perfusion, but continue metoprolol due to recent UT. D/w with Dr. Brandon suggested CTA for diagnostic purpose. GI consulted Dr. Torres for UGI bleeding, started on protonix iv 40mg, q12. Objective - Vital Signs/Intake and Output Vital Signs (last 24 hours): Temp Pulse Resp BP Pulse Ox 98.6 F 69 21 169/77 H 99 10/27/17 04:45 10/27/17 07:01 10/27/17 07:01 10/27/17 07:01 10/27/17 07:01 Intake and Output: 10/27/17 10/27/17 06:59 18:59 Intake Total 785 0 Output Total 525 Balance 260 0 - Medications Medications: Current Medications Aspirin (Aspirin Chewable) 81 mg PO DAILY [facility] Last Admin: 10/26/17 10:24 Dose: 81 mg Citalopram Hydrobromide (Celexa) 10 mg PO DAILY [facility] Enoxaparin Sodium (Lovenox) 40 mg SC DAILY [facility] Furosemide (Lasix) 20 mg PO DAILY [facility] Metoprolol Tartrate (Lopressor) 50 mg PO BID [facility] Last Admin: 10/26/17 17:04 Dose: 50 mg Rosuvastatin Calcium (Crestor) 10 mg PO HS [facility] Last Admin: 10/26/17 23:00 Dose: 10 mg Vitamin A (Vitamin A & D Oint Ud Foilpak) 1 ea TOP Q6H PRN PRN Reason: Dry skin Last Admin: 10/26/17 18:03 Dose: 1 ea - Labs Labs: 10/27/17 06:37 10/27/17 06:37 PT 11.9 SECONDS (9.7-12.2) 10/25/17 09:00 INR 1.1 10/25/17 09:00 APTT 25 SECONDS (21-34) 10/25/17 09:00
[2017-10-27] MEDS ORDERED: Iodixanol 320 MG/ML 100 ML BOTTLE IV ONE (08:32)
[2017-10-27 08:50] LABS: NEUTROPHIL 83 % (50-75); TOTAL CELLS COUNTED 100
--- NOTE | 2017-10-27 08:58 | CP.PCM.CON ---
<Maximo Piedra - Last Filed: 10/27/17 08:50> History of Present Illness - History of Present Illness History of Present Illness: Maximo Piedra D.O. PGY-2, GI Consultation Note 77 year old male with a PMH of previous CVA with residual weakness and HTN who presented with left sided weakness on 10/25, found to have an NSTEMI, with temporary improvement in symptoms and then acute worsening and worsened anemia while on therapeutic lovenox with findings of jared melena this morning. GI consultation was placed for the aforementioned. Patient was seen and examined at bedside with attending physician. Patient is aphasic at this time given his neurological worsening, however he is able to follow simple commands that are spoken to him in Kisw[place]ili. Most of the history was obtained from the chart and Dr. Lucia. PMH: as above PSH: unobtainable given aphasia, no record of previous surgeries SH: unobtainable given aphasia, no records indicate smoking/EtOH/illicit drug use FH: unobtainable, no records Meds: reviewed Allergies: NKA Review of Systems - Review of Systems Systems not reviewed;Unavailable: Other (aphasia) Past Patient History - Past Medical History & Family History Past Medical History?: Yes - Past Social History Smoking Status: Former Smoker - CARDIAC Hx Hypertension: Yes - NEUROLOGICAL Hx Neurological Disorder: Yes HX Cerebrovascular Accident: Yes - ENDOCRINE/METABOLIC Hx Diabetes Mellitus Type 2: Yes - MUSCULOSKELETAL/RHEUMATOLOGICAL Hx Falls: Yes - PSYCHIATRIC Hx Substance Use: No - ANESTHESIA Hx Anesthesia: No Meds Allergies/Adverse Reactions: Allergies Allergy/AdvReac Type Severity Reaction Status Date / Time No Known Allergies Allergy Verified 10/25/17 12:48 - Medications Medications: Current Medications Aspirin (Aspirin Chewable) 81 mg PO DAILY [facility] Last Admin: 10/26/17 10:24 Dose: 81 mg Citalopram Hydrobromide (Celexa) 10 mg PO DAILY [facility] Enoxaparin Sodium (Lovenox) 40 mg SC DAILY [facility] Furosemide (Lasix) 20 mg PO DAILY [facility] Metoprolol Tartrate (Lopressor) 50 mg PO BID [facility] Last Admin: 10/26/17 17:04 Dose: 50 mg Pantoprazole Sodium (Protonix Inj) 40 mg IVP Q12 [facility] Last Admin: 10/27/17 08:35 Dose: 40 mg Rosuvastatin Calcium (Crestor) 10 mg PO HS [facility] Last Admin: 10/26/17 23:00 Dose: 10 mg Vitamin A (Vitamin A & D Oint Ud Foilpak) 1 ea TOP Q6H PRN PRN Reason: Dry skin Last Admin: 10/26/17 18:03 Dose: 1 ea Physical Exam - Constitutional Appears: No Acute Distress - Head Exam Head Exam: ATRAUMATIC, NORMOCEPHALIC - Eye Exam Eye Exam: absent: Scleral icterus - ENT Exam ENT Exam: Mucous Membranes Moist, Normal Oropharynx - Neck Exam Neck exam: Positive for: Normal Inspection. Negative for: Tenderness - Respiratory Exam Respiratory Exam: Clear to Auscultation Bilateral - Cardiovascular Exam Cardiovascular Exam: RRR, +S1, +S2 - GI/Abdominal Exam GI & Abdominal Exam: Normal Bowel Sounds, Soft. absent: Distended, Firm, Guarding, Tenderness - Rectal Exam Additional comments: brown stool - Extremities Exam Extremities exam: Positive for: normal capillary refill - Neurological Exam Additional comments: awake, arousable, follows simple commands in Kisw[place]ili, will nod/shake head to answer simple questions, expressive aphasia, left sided dense hemiplegia - Psychiatric Exam Additional comments: aphasic - Skin Skin Exam: Dry, Warm Results - Vital Signs Recent Vital Signs: Last Vital Signs Temp 97.3 F L 10/27/17 08:00 Pulse 56 L 10/27/17 08:02 Resp 25 H 10/27/17 08:02 BP 129/49 L 10/27/17 08:02 Pulse Ox 99 10/27/17 08:02 - Labs Result Diagrams: 10/27/17 06:37 10/27/17 06:37 Labs: Laboratory Results - last 24 hr 10/25/17 10/26/17 10/26/17 09:27 07:19 11:39 WBC RBC Hgb Hct MCV MCH MCHC RDW Plt Count MPV Neut % (Auto) Lymph % (Auto) [place] % (Auto) Eos % (Auto) Baso % (Auto) Neut # Lymph # [place] # Eos # Baso # Neutrophils % (Manual) 86 H Band Neutrophils % 1 Lymphocytes % (Manual) 7 L Monocytes % (Manual) 4 Eosinophils % (Manual) 2 Platelet Estimate Normal Polychromasia Slight Hypochromasia (manual) Slight Ovalocytes Slight Retic Count Sodium Potassium Chloride Carbon Dioxide Anion Gap BUN Creatinine Est GFR ( Amer) Est GFR (Non-Af Amer) POC Glucose (mg/dL) 168 H Random Glucose Calcium Phosphorus Magnesium Ferritin Total Bilirubin AST ALT Alkaline Phosphatase Total Protein Albumin Globulin Albumin/Globulin Ratio Vitamin B12 Folate Stool Occult Blood Blood Type O NEGATIVE Antibody Screen Negative 10/26/17 10/26/17 10/26/17 15:27 16:10 21:09 WBC RBC Hgb Hct MCV MCH MCHC RDW Plt Count MPV Neut % (Auto) Lymph % (Auto) [place] % (Auto) Eos % (Auto) Baso % (Auto) Neut # Lymph # [place] # Eos # Baso # Neutrophils % (Manual) Band Neutrophils % Lymphocytes % (Manual) Monocytes % (Manual) Eosinophils % (Manual) Platelet Estimate Polychromasia Hypochromasia (manual) Ovalocytes Retic Count Sodium Potassium Chloride Carbon Dioxide Anion Gap BUN Creatinine Est GFR ( Amer) Est GFR (Non-Af Amer) POC Glucose (mg/dL) 132 H 154 H Random Glucose Calcium Phosphorus Magnesium Ferritin Total Bilirubin AST ALT Alkaline Phosphatase Total Protein Albumin Globulin Albumin/Globulin Ratio Vitamin B12 Folate Stool Occult Blood Positive H Blood Type Antibody Screen 10/26/17 10/27/17 10/27/17 23:39 05:52 06:37 WBC 8.6 8.9 RBC 2.44 L 2.67 L Hgb 7.3 L 8.1 L Hct 21.7 L 23.9 L MCV 89.1 89.3 MCH 29.9 30.3 MCHC 33.5 33.9 RDW 14.4 14.2 Plt Count 218 194 MPV 9.3 9.3 Neut % (Auto) 81.1 H Lymph % (Auto) 9.1 L [place] % (Auto) 7.9 Eos % (Auto) 1.3 Baso % (Auto) 0.6 Neut # 7.2 H Lymph # 0.8 L [place] # 0.7 Eos # 0.1 Baso # 0.1 Neutrophils % (Manual) Band Neutrophils % Lymphocytes % (Manual) Monocytes % (Manual) Eosinophils % (Manual) Platelet Estimate Polychromasia Hypochromasia (manual) Ovalocytes Retic Count Sodium Potassium Chloride Carbon Dioxide Anion Gap BUN Creatinine Est GFR ( Amer) Est GFR (Non-Af Amer) POC Glucose (mg/dL) 143 H Random Glucose Calcium Phosphorus Magnesium Ferritin Total Bilirubin AST ALT Alkaline Phosphatase Total Protein Albumin Globulin Albumin/Globulin Ratio Vitamin B12 Folate Stool Occult Blood Blood Type Antibody Screen 10/27/17 10/27/17 10/27/17 06:37 06:37 07:19 WBC RBC Hgb Hct MCV MCH MCHC RDW Plt Count MPV Neut % (Auto) Lymph % (Auto) [place] % (Auto) Eos % (Auto) Baso % (Auto) Neut # Lymph # [place] # Eos # Baso # Neutrophils % (Manual) Band Neutrophils % Lymphocytes % (Manual) Monocytes % (Manual) Eosinophils % (Manual) Platelet Estimate Polychromasia Hypochromasia (manual) Ovalocytes Retic Count 3.8 H Sodium 138 Potassium 4.5 Chloride 109 H Carbon Dioxide 25 Anion Gap 8 L BUN 41 H Creatinine 0.9 Est GFR ( Amer) > 60 Est GFR (Non-Af Amer) > 60 POC Glucose (mg/dL) 146 H Random Glucose 135 H Calcium 7.6 L Phosphorus 3.1 Magnesium 1.7 Ferritin 86.6 Total Bilirubin 0.8 AST 39 ALT 36 Alkaline Phosphatase 43 Total Protein 5.5 L Albumin 2.5 L Globulin 2.9 Albumin/Globulin Ratio 0.9 L Vitamin B12 403 Folate 13.2 Stool Occult Blood Blood Type Antibody Screen Assessment & Plan - Assessment and Plan (Free Text) Assessment: 77 year old male with a PMH of previous CVA with residual weakness and HTN who presented with left sided weakness on 10/25, found to have an NSTEMI, with temporary improvement in symptoms and then acute worsening and worsened anemia while on therapeutic lovenox with findings of jared melena this morning Plan: Anemia with + stool occult blood/melena Multiple CVA NSTEMI HTN Switched from PO PPI to IVP Anticoagulation is on hold per ICU team S/p 1U PRBC transfusion Hgb 7.3->8.1 Discussed with cardio at bedside Neuro recs appreciated Follow H and H closely Will monitor clinically at this time given multiple ongoing vascular problems before making determination for the role of endoscopy Thank you for the pleasure of participating in the care of this interesting patient - Date & Time Date: 10/27/17 Time: 08:30 <Poli Torres - Last Filed: 10/27/17 09:35> Meds - Medications Medications: Current Medications Aspirin (Aspirin Chewable) 81 mg PO DAILY [facility] Last Admin: 10/26/17 10:24 Dose: 81 mg Citalopram Hydrobromide (Celexa) 10 mg PO DAILY [facility] Enoxaparin Sodium (Lovenox) 40 mg SC DAILY [facility] Furosemide (Lasix) 20 mg PO DAILY [facility] Metoprolol Tartrate (Lopressor) 50 mg PO BID [facility] Last Admin: 10/26/17 17:04 Dose: 50 mg Pantoprazole Sodium (Protonix Inj) 40 mg IVP Q12 [facility] Last Admin: 10/27/17 08:35 Dose: 40 mg Rosuvastatin Calcium (Crestor) 10 mg PO HS [facility] Last Admin: 10/26/17 23:00 Dose: 10 mg Vitamin A (Vitamin A & D Oint Ud Foilpak) 1 ea TOP Q6H PRN PRN Reason: Dry skin Last Admin: 10/26/17 18:03 Dose: 1 ea Results - Vital Signs Recent Vital Signs: Last Vital Signs Temp 97.3 F L 10/27/17 08:00 Pulse 75 10/27/17 09:02 Resp 29 H 10/27/17 09:02 BP 149/72 10/27/17 09:02 Pulse Ox 100 10/27/17 09:02 - Labs Result Diagrams: 10/27/17 06:37 10/27/17 06:37 Labs: Laboratory Results - last 24 hr 10/25/17 10/26/17 10/26/17 09:27 07:19 11:39 WBC RBC Hgb Hct MCV MCH MCHC RDW Plt Count MPV Neut % (Auto) Lymph % (Auto) [place] % (Auto) Eos % (Auto) Baso % (Auto) Neut # Lymph # [place] # Eos # Baso # Neutrophils % (Manual) 86 H Band Neutrophils % 1 Lymphocytes % (Manual) 7 L Monocytes % (Manual) 4 Eosinophils % (Manual) 2 Platelet Estimate Normal Polychromasia Slight Hypochromasia (manual) Slight Ovalocytes Slight Retic Count Sodium Potassium Chloride Carbon Dioxide Anion Gap BUN Creatinine Est GFR ( Amer) Est GFR (Non-Af Amer) POC Glucose (mg/dL) 168 H Random Glucose Calcium Phosphorus Magnesium Ferritin Total Bilirubin AST ALT Alkaline Phosphatase Total Protein Albumin Globulin Albumin/Globulin Ratio Vitamin B12 Folate Stool Occult Blood Blood Type O NEGATIVE Antibody Screen Negative 10/26/17 10/26/17 10/26/17 15:27 16:10 21:09 WBC RBC Hgb Hct MCV MCH MCHC RDW Plt Count MPV Neut % (Auto) Lymph % (Auto) [place] % (Auto) Eos % (Auto) Baso % (Auto) Neut # Lymph # [place] # Eos # Baso # Neutrophils % (Manual) Band Neutrophils % Lymphocytes % (Manual) Monocytes % (Manual) Eosinophils % (Manual) Platelet Estimate Polychromasia Hypochromasia (manual) Ovalocytes Retic Count Sodium Potassium Chloride Carbon Dioxide Anion Gap BUN Creatinine Est GFR ( Amer) Est GFR (Non-Af Amer) POC Glucose (mg/dL) 132 H 154 H Random Glucose Calcium Phosphorus Magnesium Ferritin Total Bilirubin AST ALT Alkaline Phosphatase Total Protein Albumin Globulin Albumin/Globulin Ratio Vitamin B12 Folate Stool Occult Blood Positive H Blood Type Antibody Screen 10/26/17 10/27/17 10/27/17 23:39 05:52 06:37 WBC 8.6 8.9 RBC 2.44 L 2.67 L Hgb 7.3 L 8.1 L Hct 21.7 L 23.9 L MCV 89.1 89.3 MCH 29.9 30.3 MCHC 33.5 33.9 RDW 14.4 14.2 Plt Count 218 194 MPV 9.3 9.3 Neut % (Auto) 81.1 H Lymph % (Auto) 9.1 L [place] % (Auto) 7.9 Eos % (Auto) 1.3 Baso % (Auto) 0.6 Neut # 7.2 H Lymph # 0.8 L [place] # 0.7 Eos # 0.1 Baso # 0.1 Neutrophils % (Manual) 83 H Band Neutrophils % Lymphocytes % (Manual) 11 L Monocytes % (Manual) 6 Eosinophils % (Manual) Platelet Estimate Normal Polychromasia Slight Hypochromasia (manual) Slight Ovalocytes Retic Count Sodium Potassium Chloride Carbon Dioxide Anion Gap BUN Creatinine Est GFR ( Amer) Est GFR (Non-Af Amer) POC Glucose (mg/dL) 143 H Random Glucose Calcium Phosphorus Magnesium Ferritin Total Bilirubin AST ALT Alkaline Phosphatase Total Protein Albumin Globulin Albumin/Globulin Ratio Vitamin B12 Folate Stool Occult Blood Blood Type Antibody Screen 10/27/17 10/27/17 10/27/17 06:37 06:37 07:19 WBC RBC Hgb Hct MCV MCH MCHC RDW Plt Count MPV Neut % (Auto) Lymph % (Auto) [place] % (Auto) Eos % (Auto) Baso % (Auto) Neut # Lymph # [place] # Eos # Baso # Neutrophils % (Manual) Band Neutrophils % Lymphocytes % (Manual) Monocytes % (Manual) Eosinophils % (Manual) Platelet Estimate Polychromasia Hypochromasia (manual) Ovalocytes Retic Count 3.8 H Sodium 138 Potassium 4.5 Chloride 109 H Carbon Dioxide 25 Anion Gap 8 L BUN 41 H Creatinine 0.9 Est GFR ( Amer) > 60 Est GFR (Non-Af Amer) > 60 POC Glucose (mg/dL) 146 H Random Glucose 135 H Calcium 7.6 L Phosphorus 3.1 Magnesium 1.7 Ferritin 86.6 Total Bilirubin 0.8 AST 39 ALT 36 Alkaline Phosphatase 43 Total Protein 5.5 L Albumin 2.5 L Globulin 2.9 Albumin/Globulin Ratio 0.9 L Vitamin B12 403 Folate 13.2 Stool Occult Blood Blood Type Antibody Screen Attending/Attestation - Attestation I have personally seen and examined this patient.: Yes I have fully participated in the care of the patient.: Yes I have reviewed all pertinent clinical information: Yes Notes (Text): 10/27/17 09:24 I have seen and examined patient with GI fellow and medical collections representative. Agree with above documentation with the following additions. In brief, this is a 77 year old male with history of prior CVA, DM, HTN who initially presented to hospital 2 days ago with complaint of left sided weakness and expressive aphasia. He was deemed not to be a candidate for TPA therapy and his hospital course has been complicated by acute cardiac event (NSTEMI) along with worsening mental status changes. GI called for evaluation of melena and progressive anemia. Patient is currently aphasic and not able to communicate, though is able to follow simple commands (moving right extremity and squeeze reflex). Additional information was provided following discussion with nursing staff, chart review, and discussion with patient family member. There was one reported episode of melena overnight at approximately 4 am while on therapeutic dose of lovenox. There is no reported abdominal pain, nausea, vomiting, fever/ chills. Review of vitals from this morning at bedside were normal. History of prior CVA DM / HTN Acute expressive aphasia, left sided weakness Acute NSTEMI Anemia with fecal occult blood positive, non-optimal response to PRBC transfusion, severe posing threat to patient life given clinical scenario - Patient has received 3 units PRBC transfusion, will continue to monitor H/H. Rectal exam performed today showed presence of dark brown stool in vault without associated palpable lesions. - Continue with PPI therapy - Follow up neurology recommendations - Case discussed with cardiology Dr. Cunningham at bedside, he is a high risk patient to undergo endoscopic evaluation/intervention, though due to potential need for initiation of anti-platelet/anti-coagulation therapy he would benefit from procedural evaluation. The risks/benefits of this will need to be carefully discussed in detail with patient family members prior to proceeding. - Awaiting echocardiogram results - NPO - Will continue to monitor patient clinical course
--- NOTE | 2017-10-27 09:40 | CT ---
PROCEDURE: CTA HEAD AND NECK WITH CONTRAST HISTORY: left side weakness, aphasia COMPARISON: 10/25/2017. TECHNIQUE: Initial noncontrast head CT was performed. Subsequently, CT angiogram of the head and neck were performed after the intravenous administration of 80 mL of Omnipaque 350. Contiguous 1.5mm thick images were obtained in the axial plane of the neck. 2-D coronal and sagittal MPR images were obtained. Imaging postprocessing was performed with 3-D images also obtained. A delayed contrast head CT was also obtained. This CT exam was performed using one or more of the following dose reduction techniques: Automated exposure control, adjustment of the mA and/or kV according to patient size, and/or use of iterative reconstruction technique. Contrast dose: 100 mL Visipaque 320 Radiation dose: Total exam DLP = 621.19 mGy-cm. FINDINGS: HEAD: Right: There is abrupt cut off and occlusion of the right M1 segment approximately 10 mm distal to its origin. There is asymmetric attenuation of the M2 branches. The intracranial internal carotid artery and anterior cerebral arteries are widely patent. Left: The intracranial internal carotid artery, and anterior and middle cerebral arteries are widely patent. Posterior circulation: The visualized intracranial vertebral arteries, basilar artery and posterior cerebral arteries are widely patent. Ther is no endoluminal filling defect to suggest thrombus. There is no intracranial saccular aneurysm. There is no abnormal enhancement on the postcontrast CT. NECK: There is a three vessel aortic arch. There are mild atherosclerotic calcification at the origin of the great vessels without significant stenosis. There is no stenosis at the origins of the great vessels at the level of the aortic arch. Right Carotid: On the right, the common carotid, internal carotid and external carotid arteries are widely patent. There are calcified and noncalcified atherosclerotic plaques in the carotid bulbs and proximal internal carotid arteries. There is no hemodynamically significant stenosis in the internal carotid arteries. Left Carotid: On the left, the common carotid, internal carotid and external carotid arteries are widely patent. There are calcified and noncalcified atherosclerotic plaques in the carotid bulbs and proximal internal carotid arteries. There is no hemodynamically significant stenosis in the internal carotid arteries. The vertebral arteries are widely patent. The right vertebral artery is dominant, an anatomic variant. The visualized soft tissues of the neck are normal. The visualized brain and cervical spine are within normal limits. The lung apices are clear. There is a solitary low-attenuation nodule in the right thyroid lobe. 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 Asymmetric attenuation of the right M2 branches. No evidence of hemodynamically significant stenosis in the internal carotid arteries. Patent bilateral vertebral arteries. The right vertebral artery is dominant. Critical findings were discussed with Dr. Vera in the ICU on 10/27/2017 at 9:35 a.m.
[2017-10-27] MEDS ORDERED: Enoxaparin 40 mg Syringe SC SCH (10:00)
--- NOTE | 2017-10-27 14:18 | CP.CCUPN ---
<Vik Blanton - Last Filed: 10/27/17 14:13> CCU Subjective - Physician Review Subjective (Free Text): PGY1 ICU Progress Note for Dr. Vera Patient seen and examined at bedside this morning. Patient is awake and alert but is not moving the left side of his body. He has known residual left sided weakness from prior CVA's but he now is experiencing hemiparesis. Patient was speaking yesterday but today is no longer speaking. Patient appears much more lethargic. When asked how he is feeling, patient attempts to answer questions with his right hand with thumbs up or down. ROS unattainable. CCU Objective - Vital Signs / Intake & Output Vital Signs (Last 4 hours): Vital Signs Temp Pulse Resp BP Pulse Ox 10/27/17 13:01 75 29 H 185/72 H 10/27/17 13:00 75 31 H 10/27/17 12:39 76 30 H 187/80 H 10/27/17 12:01 78 23 181/112 H 100 10/27/17 12:00 99.1 F 78 31 H 100 10/27/17 11:01 70 17 181/80 H 10/27/17 11:00 71 21 Intake and Output (Last 8hrs): Intake & Output 10/26/17 10/27/17 10/27/17 22:59 06:59 14:59 Intake Total 775 785 0 Output Total 200 525 0 Balance 575 260 0 Weight 160 lb 4 oz 160 lb 4 oz Intake: Intake, IV Amount 50 0 0 Left Antecubital 50 0 Right Wrist 0 0 Oral 25 30 0 Blood Product 650 705 Red Blood Cells Cpd As1 325 Lr Unit [id number] Red Blood Cells Cpd As1 325 Lr Unit [id number] Other 50 50 Red Blood Cells Cpd As1 50 Lr Unit [id number] Red Blood Cells Cpd As1 50 Lr Unit [id number] Output: Urine 200 525 0 Condom 200 525 0 Other: # Bowel Movements 1 1 0 - Physical Exam Head: Positive for: Atraumatic, Normocephalic Pupils: Positive for: PERRL Extroacular Muscles: Positive for: EOMI Mouth: Positive for: Moist Mucous Membranes Respiratory/Chest: Positive for: Clear to Auscultation, Good Air Exchange. Negative for: Respiratory Distress, Accessory Muscle Use Cardiovascular: Positive for: Regular Rate and Rhythm Abdomen: Positive for: Normal Bowel Sounds. Negative for: Tenderness, Distention Neurological: Positive for: Other (left arm drift (baseline deficit from previous stroke)). Negative for: Speech Normal (aphasic) Skin: Positive for: Warm, Dry Psychiatric: Positive for: Alert, Lethargic - Medications Active Medications: Active Medications Generic Name Dose Route Start Last Admin Trade Name Freq PRN Reason Stop Dose Admin Aspirin 81 mg 10/26/17 10:00 10/27/17 11:45 Aspirin Chewable PO Not Given DAILY [facility] Citalopram Hydrobromide 10 mg 10/27/17 10:00 10/27/17 11:45 Celexa PO Not Given DAILY [facility] Enoxaparin Sodium 40 mg 10/27/17 10:00 Lovenox SC DAILY [facility] Furosemide 20 mg 10/27/17 10:00 10/27/17 11:45 Lasix PO Not Given DAILY [facility] Metoprolol Tartrate 50 mg 10/26/17 18:00 10/27/17 11:46 Lopressor PO Not Given BID [facility] Pantoprazole Sodium 40 mg 10/27/17 08:15 10/27/17 11:20 Protonix Inj IVP Not Given Q12 [facility] Rosuvastatin Calcium 10 mg 10/26/17 22:00 10/26/17 23:00 Crestor PO 10 mg HS [facility]NA Administration Vitamin A 1 ea 10/26/17 17:56 10/26/17 18:03 Vitamin A & D Oint Ud Foilpak TOP 1 ea Q6H PRN Administration Dry skin - Patient Studies Lab Studies: Microbiology Studies 10/25/17 16:40 MRSA Culture (Admit) - Final Nose MRSA NOT DETECTED Lab Studies 10/27/17 10/27/17 10/27/17 Range/Units 11:07 07:19 06:37 WBC (4.8-10.8) K/uL RBC (4.40-5.90) Mil/uL Hgb (12.0-18.0) g/dL Hct (35.0-51.0) % MCV (80.0-94.0) fL MCH (27.0-31.0) pg MCHC (33.0-37.0) g/dL RDW (11.5-14.5) % Plt Count (130-400) K/uL MPV (7.2-11.7) fL Neut % (Auto) (50.0-75.0) % Lymph % (Auto) (20.0-40.0) % [place] % (Auto) (0.0-10.0) % Eos % (Auto) (0.0-4.0) % Baso % (Auto) (0.0-2.0) % Neut # (1.8-7.0) K/uL Lymph # (1.0-4.3) K/uL [place] # (0.0-0.8) K/uL Eos # (0.0-0.7) K/uL Baso # (0.0-0.2) K/uL Neutrophils % (Manual) (50-75) % Lymphocytes % (Manual) (20-40) % Monocytes % (Manual) (0-10) % Platelet Estimate (NORMAL) Polychromasia Hypochromasia (manual) Retic Count 3.8 H (0.5-1.5) % Sodium (132-148) mmol/L Potassium (3.6-5.2) mmol/L Chloride (98-107) mmol/L Carbon Dioxide (22-30) mmol/L Anion Gap (10-20) BUN (9-20) mg/dL Creatinine (0.8-1.5) mg/dL Est GFR ( Amer) Est GFR (Non-Af Amer) POC Glucose (mg/dL) 157 H 146 H (65-110) mg/dL Random Glucose (75-110) mg/dL Calcium (8.6-10.4) mg/dl Phosphorus (2.5-4.5) mg/dL Magnesium (1.6-2.3) mg/dL Ferritin ng/mL Total Bilirubin (0.2-1.3) mg/dL AST (17-59) U/L ALT (21-72) U/L Alkaline Phosphatase (38-126) U/L Total Protein (6.3-8.3) g/dL Albumin (3.5-5.0) g/dL Globulin (2.2-3.9) gm/dL Albumin/Globulin Ratio (1.0-2.1) Vitamin B12 (239-931) pg/mL Folate ng/mL Stool Occult Blood (NEGATIVE) Blood Type Antibody Screen 10/27/17 10/27/17 10/27/17 Range/Units 06:37 06:37 05:52 WBC 8.9 (4.8-10.8) K/uL RBC 2.67 L (4.40-5.90) Mil/uL Hgb 8.1 L (12.0-18.0) g/dL Hct 23.9 L (35.0-51.0) % MCV 89.3 (80.0-94.0) fL MCH 30.3 (27.0-31.0) pg MCHC 33.9 (33.0-37.0) g/dL RDW 14.2 (11.5-14.5) % Plt Count 194 (130-400) K/uL MPV 9.3 (7.2-11.7) fL Neut % (Auto) 81.1 H (50.0-75.0) % Lymph % (Auto) 9.1 L (20.0-40.0) % [place] % (Auto) 7.9 (0.0-10.0) % Eos % (Auto) 1.3 (0.0-4.0) % Baso % (Auto) 0.6 (0.0-2.0) % Neut # 7.2 H (1.8-7.0) K/uL Lymph # 0.8 L (1.0-4.3) K/uL [place] # 0.7 (0.0-0.8) K/uL Eos # 0.1 (0.0-0.7) K/uL Baso # 0.1 (0.0-0.2) K/uL Neutrophils % (Manual) 83 H (50-75) % Lymphocytes % (Manual) 11 L (20-40) % Monocytes % (Manual) 6 (0-10) % Platelet Estimate Normal (NORMAL) Polychromasia Slight Hypochromasia (manual) Slight Retic Count (0.5-1.5) % Sodium 138 (132-148) mmol/L Potassium 4.5 (3.6-5.2) mmol/L Chloride 109 H (98-107) mmol/L Carbon Dioxide 25 (22-30) mmol/L Anion Gap 8 L (10-20) BUN 41 H (9-20) mg/dL Creatinine 0.9 (0.8-1.5) mg/dL Est GFR ( Amer) > 60 Est GFR (Non-Af Amer) > 60 POC Glucose (mg/dL) 143 H (65-110) mg/dL Random Glucose 135 H (75-110) mg/dL Calcium 7.6 L (8.6-10.4) mg/dl Phosphorus 3.1 (2.5-4.5) mg/dL Magnesium 1.7 (1.6-2.3) mg/dL Ferritin 86.6 ng/mL Total Bilirubin 0.8 (0.2-1.3) mg/dL AST 39 (17-59) U/L ALT 36 (21-72) U/L Alkaline Phosphatase 43 (38-126) U/L Total Protein 5.5 L (6.3-8.3) g/dL Albumin 2.5 L (3.5-5.0) g/dL Globulin 2.9 (2.2-3.9) gm/dL Albumin/Globulin Ratio 0.9 L (1.0-2.1) Vitamin B12 403 (239-931) pg/mL Folate 13.2 ng/mL Stool Occult Blood (NEGATIVE) Blood Type Antibody Screen 10/26/17 10/26/17 10/26/17 Range/Units 23:39 21:09 16:10 WBC 8.6 (4.8-10.8) K/uL RBC 2.44 L (4.40-5.90) Mil/uL Hgb 7.3 L (12.0-18.0) g/dL Hct 21.7 L (35.0-51.0) % MCV 89.1 (80.0-94.0) fL MCH 29.9 (27.0-31.0) pg MCHC 33.5 (33.0-37.0) g/dL RDW 14.4 (11.5-14.5) % Plt Count 218 (130-400) K/uL MPV 9.3 (7.2-11.7) fL Neut % (Auto) (50.0-75.0) % Lymph % (Auto) (20.0-40.0) % [place] % (Auto) (0.0-10.0) % Eos % (Auto) (0.0-4.0) % Baso % (Auto) (0.0-2.0) % Neut # (1.8-7.0) K/uL Lymph # (1.0-4.3) K/uL [place] # (0.0-0.8) K/uL Eos # (0.0-0.7) K/uL Baso # (0.0-0.2) K/uL Neutrophils % (Manual) (50-75) % Lymphocytes % (Manual) (20-40) % Monocytes % (Manual) (0-10) % Platelet Estimate (NORMAL) Polychromasia Hypochromasia (manual) Retic Count (0.5-1.5) % Sodium (132-148) mmol/L Potassium (3.6-5.2) mmol/L Chloride (98-107) mmol/L Carbon Dioxide (22-30) mmol/L Anion Gap (10-20) BUN (9-20) mg/dL Creatinine (0.8-1.5) mg/dL Est GFR ( Amer) Est GFR (Non-Af Amer) POC Glucose (mg/dL) 154 H 132 H (65-110) mg/dL Random Glucose (75-110) mg/dL Calcium (8.6-10.4) mg/dl Phosphorus (2.5-4.5) mg/dL Magnesium (1.6-2.3) mg/dL Ferritin ng/mL Total Bilirubin (0.2-1.3) mg/dL AST (17-59) U/L ALT (21-72) U/L Alkaline Phosphatase (38-126) U/L Total Protein (6.3-8.3) g/dL Albumin (3.5-5.0) g/dL Globulin (2.2-3.9) gm/dL Albumin/Globulin Ratio (1.0-2.1) Vitamin B12 (239-931) pg/mL Folate ng/mL Stool Occult Blood (NEGATIVE) Blood Type Antibody Screen 10/26/17 10/25/17 Range/Units 15:27 09:27 WBC (4.8-10.8) K/uL RBC (4.40-5.90) Mil/uL Hgb (12.0-18.0) g/dL Hct (35.0-51.0) % MCV (80.0-94.0) fL MCH (27.0-31.0) pg MCHC (33.0-37.0) g/dL RDW (11.5-14.5) % Plt Count (130-400) K/uL MPV (7.2-11.7) fL Neut % (Auto) (50.0-75.0) % Lymph % (Auto) (20.0-40.0) % [place] % (Auto) (0.0-10.0) % Eos % (Auto) (0.0-4.0) % Baso % (Auto) (0.0-2.0) % Neut # (1.8-7.0) K/uL Lymph # (1.0-4.3) K/uL [place] # (0.0-0.8) K/uL Eos # (0.0-0.7) K/uL Baso # (0.0-0.2) K/uL Neutrophils % (Manual) (50-75) % Lymphocytes % (Manual) (20-40) % Monocytes % (Manual) (0-10) % Platelet Estimate (NORMAL) Polychromasia Hypochromasia (manual) Retic Count (0.5-1.5) % Sodium (132-148) mmol/L Potassium (3.6-5.2) mmol/L Chloride (98-107) mmol/L Carbon Dioxide (22-30) mmol/L Anion Gap (10-20) BUN (9-20) mg/dL Creatinine (0.8-1.5) mg/dL Est GFR ( Amer) Est GFR (Non-Af Amer) POC Glucose (mg/dL) (65-110) mg/dL Random Glucose (75-110) mg/dL Calcium (8.6-10.4) mg/dl Phosphorus (2.5-4.5) mg/dL Magnesium (1.6-2.3) mg/dL Ferritin ng/mL Total Bilirubin (0.2-1.3) mg/dL AST (17-59) U/L ALT (21-72) U/L Alkaline Phosphatase (38-126) U/L Total Protein (6.3-8.3) g/dL Albumin (3.5-5.0) g/dL Globulin (2.2-3.9) gm/dL Albumin/Globulin Ratio (1.0-2.1) Vitamin B12 (239-931) pg/mL Folate ng/mL Stool Occult Blood Positive H (NEGATIVE) Blood Type O NEGATIVE Antibody Screen Negative Laboratory Results - last 24 hr 10/25/17 10/26/17 10/26/17 09:27 15:27 16:10 WBC RBC Hgb Hct MCV MCH MCHC RDW Plt Count MPV Neut % (Auto) Lymph % (Auto) [place] % (Auto) Eos % (Auto) Baso % (Auto) Neut # Lymph # [place] # Eos # Baso # Neutrophils % (Manual) Lymphocytes % (Manual) Monocytes % (Manual) Platelet Estimate Polychromasia Hypochromasia (manual) Retic Count Sodium Potassium Chloride Carbon Dioxide Anion Gap BUN Creatinine Est GFR ( Amer) Est GFR (Non-Af Amer) POC Glucose (mg/dL) 132 H Random Glucose Calcium Phosphorus Magnesium Ferritin Total Bilirubin AST ALT Alkaline Phosphatase Total Protein Albumin Globulin Albumin/Globulin Ratio Vitamin B12 Folate Stool Occult Blood Positive H Blood Type O NEGATIVE Antibody Screen Negative 10/26/17 10/26/17 10/27/17 21:09 23:39 05:52 WBC 8.6 RBC 2.44 L Hgb 7.3 L Hct 21.7 L MCV 89.1 MCH 29.9 MCHC 33.5 RDW 14.4 Plt Count 218 MPV 9.3 Neut % (Auto) Lymph % (Auto) [place] % (Auto) Eos % (Auto) Baso % (Auto) Neut # Lymph # [place] # Eos # Baso # Neutrophils % (Manual) Lymphocytes % (Manual) Monocytes % (Manual) Platelet Estimate Polychromasia Hypochromasia (manual) Retic Count Sodium Potassium Chloride Carbon Dioxide Anion Gap BUN Creatinine Est GFR ( Amer) Est GFR (Non-Af Amer) POC Glucose (mg/dL) 154 H 143 H Random Glucose Calcium Phosphorus Magnesium Ferritin Total Bilirubin AST ALT Alkaline Phosphatase Total Protein Albumin Globulin Albumin/Globulin Ratio Vitamin B12 Folate Stool Occult Blood Blood Type Antibody Screen 10/27/17 10/27/17 10/27/17 06:37 06:37 06:37 WBC 8.9 RBC 2.67 L Hgb 8.1 L Hct 23.9 L MCV 89.3 MCH 30.3 MCHC 33.9 RDW 14.2 Plt Count 194 MPV 9.3 Neut % (Auto) 81.1 H Lymph % (Auto) 9.1 L [place] % (Auto) 7.9 Eos % (Auto) 1.3 Baso % (Auto) 0.6 Neut # 7.2 H Lymph # 0.8 L [place] # 0.7 Eos # 0.1 Baso # 0.1 Neutrophils % (Manual) 83 H Lymphocytes % (Manual) 11 L Monocytes % (Manual) 6 Platelet Estimate Normal Polychromasia Slight Hypochromasia (manual) Slight Retic Count 3.8 H Sodium 138 Potassium 4.5 Chloride 109 H Carbon Dioxide 25 Anion Gap 8 L BUN 41 H Creatinine 0.9 Est GFR ( Amer) > 60 Est GFR (Non-Af Amer) > 60 POC Glucose (mg/dL) Random Glucose 135 H Calcium 7.6 L Phosphorus 3.1 Magnesium 1.7 Ferritin 86.6 Total Bilirubin 0.8 AST 39 ALT 36 Alkaline Phosphatase 43 Total Protein 5.5 L Albumin 2.5 L Globulin 2.9 Albumin/Globulin Ratio 0.9 L Vitamin B12 403 Folate 13.2 Stool Occult Blood Blood Type Antibody Screen 10/27/17 10/27/17 07:19 11:07 WBC RBC Hgb Hct MCV MCH MCHC RDW Plt Count MPV Neut % (Auto) Lymph % (Auto) [place] % (Auto) Eos % (Auto) Baso % (Auto) Neut # Lymph # [place] # Eos # Baso # Neutrophils % (Manual) Lymphocytes % (Manual) Monocytes % (Manual) Platelet Estimate Polychromasia Hypochromasia (manual) Retic Count Sodium Potassium Chloride Carbon Dioxide Anion Gap BUN Creatinine Est GFR ( Amer) Est GFR (Non-Af Amer) POC Glucose (mg/dL) 146 H 157 H Random Glucose Calcium Phosphorus Magnesium Ferritin Total Bilirubin AST ALT Alkaline Phosphatase Total Protein Albumin Globulin Albumin/Globulin Ratio Vitamin B12 Folate Stool Occult Blood Blood Type Antibody Screen Fingerstick Blood Sugar Results: 157 Review of Systems - Review of Systems Systems not reviewed;Unavailable: Acuity of Condition Critical Care Progress Note - Nutrition Nutrition: Nutrition Category Date Time Status Heart Healthy Diet [DIET] Diets 10/26/17 Lunch Active NPO Diet [DIET] Diets 10/28/17 Breakfast Active Assessment/Plan - Assessment and Plan (Free Text) Assessment: 77 year old male with a past medical history of multiple CVA (residual sided residual weakness) presenting with new onset stroke symptoms (no tPA) and NSTEMI Plan: Neuro: Dr. Brandon consulted, help appreciated Head CTA 10/27 - Interval development of complete occlusion of the right M1 segment approximately 10 mm distal to its origin. Asymmetric attenuation of the right M2 branches. No evidence of hemodynamically significant stenosis in the internal carotid arteries. Patent bilateral vertebral arteries. The right vertebral artery is dominant. Repeat head CT 10/27 - Suspect acute infarction within RIGHT parietal region. Recommend MRI. Chronic ischemic white matter changes. Sinus disease. Chronic left maxillary sinusitis. No longer speaking Left sided hemiparesis - able to follow simple commands with right hand neuro checks f/u neuro recs - f/u ECHO - if no thrombus in ventricles, d/c all anticoagulation. If thrombus present, place back on anticoagulation. CV: Dr. Cunningham consulted, help appreciated NSTEMI Trop 25.3/39.3/31.4 Will plan for cardiac cath once stable Lovenox 40mg SC daily Aspirin 81mg PO daily Crestor 10mg PO HS f/u cardio recs Hem: Hgb 8.1 - s/p 3 units of pRBCs Transfuse 1 unit of pRBCs GI: Dr. Torres consulted, help appreciated + stool occult blood - melanonic stool f/u GI recs - Continue with PPI therapy - Case discussed with cardiology Dr. Cunningham at bedside, he is a high risk patient to undergo endoscopic evaluation/intervention, though due to potential need for initiation of anti-platelet/anti-coagulation therapy he would benefit from procedural evaluation. The risks/benefits of this will need to be carefully discussed in detail with patient family members prior to proceeding. (per GI note) - NPO Case discussed with Dr. Chuy Blanton PGY1 <Keo Vera - Last Filed: 10/27/17 18:17> CCU Objective - Vital Signs / Intake & Output Vital Signs (Last 4 hours): Vital Signs Temp Pulse Resp BP Pulse Ox 10/27/17 18:01 65 23 167/74 H 100 10/27/17 18:00 68 13 100 10/27/17 17:21 100.2 F H 69 29 H 176/74 H 10/27/17 17:19 68 25 H 176/74 H 100 10/27/17 17:01 72 30 H 203/72 H 100 10/27/17 17:00 71 25 H 100 10/27/17 16:52 71 17 188/88 H 100 10/27/17 16:51 99.4 F 71 21 188/88 H 10/27/17 16:40 72 20 178/70 H 100 10/27/17 16:36 98.2 F 73 25 H 178/70 H 10/27/17 16:21 99.6 F 75 28 H 190/81 H 10/27/17 16:01 73 26 H 190/81 H 100 10/27/17 16:00 99.6 F 70 30 H 100 10/27/17 15:04 78 10 L 182/64 H 100 10/27/17 15:00 75 31 H 100 Intake and Output (Last 8hrs): Intake & Output 10/27/17 10/27/17 10/27/17 06:59 14:59 22:59 Intake Total 785 0 125 Output Total 525 0 Balance 260 0 125 Weight 160 lb 4 oz 160 lb 4 oz Intake: Intake, IV Amount 0 0 0 Left Antecubital 0 Right Wrist 0 0 0 Oral 30 0 0 Blood Product 705 125 Apheresis Rbc Cp2d As3 Lr 0 2nd Unit [id number] Red Blood Cells Cpd As1 325 Lr Unit [id number] Other 50 Red Blood Cells Cpd As1 50 Lr Unit [id number] Output: Urine 525 0 Condom 525 0 Other: # Bowel Movements 1 0 0 - Medications Active Medications: Active Medications Generic Name Dose Route Start Last Admin Trade Name Freq PRN Reason Stop Dose Admin Aspirin 81 mg 10/26/17 10:00 10/27/17 11:45 Aspirin Chewable PO Not Given DAILY [facility] Citalopram Hydrobromide 10 mg 10/27/17 10:00 10/27/17 11:45 Celexa PO Not Given DAILY [facility] Enoxaparin Sodium 75 mg 10/27/17 18:00 10/27/17 17:23 Lovenox SC [address] [facility] Administration Furosemide 20 mg 10/27/17 10:00 10/27/17 11:45 Lasix PO Not Given DAILY [facility] Metoprolol Tartrate 50 mg 10/26/17 18:00 10/27/17 17:06 Lopressor PO Not Given BID [facility] Pantoprazole Sodium 40 mg 10/27/17 08:15 10/27/17 11:20 Protonix Inj IVP Not Given Q12 [facility] Rosuvastatin Calcium 10 mg 10/26/17 22:00 10/26/17 23:00 Crestor PO 10 mg HS [facility] Administration Vitamin A 1 ea 10/26/17 17:56 10/26/17 18:03 Vitamin A & D Oint Ud Foilpak TOP 1 ea Q6H PRN Administration Dry skin - Patient Studies Lab Studies: Microbiology Studies 10/25/17 16:40 MRSA Culture (Admit) - Final Nose MRSA NOT DETECTED Lab Studies 10/27/17 10/27/17 10/27/17 Range/Units 16:10 14:21 11:07 WBC 7.2 (4.8-10.8) K/uL RBC 2.47 L (4.40-5.90) Mil/uL Hgb 7.4 L (12.0-18.0) g/dL Hct 21.8 L (35.0-51.0) % MCV 88.0 (80.0-94.0) fL MCH 29.9 (27.0-31.0) pg MCHC 33.9 (33.0-37.0) g/dL RDW 14.1 (11.5-14.5) % Plt Count 206 (130-400) K/uL MPV 8.5 (7.2-11.7) fL Neut % (Auto) 87.8 H (50.0-75.0) % Lymph % (Auto) 6.1 L (20.0-40.0) % [place] % (Auto) 5.6 (0.0-10.0) % Eos % (Auto) 0.1 (0.0-4.0) % Baso % (Auto) 0.4 (0.0-2.0) % Neut # 6.3 (1.8-7.0) K/uL Lymph # 0.4 L (1.0-4.3) K/uL [place] # 0.4 (0.0-0.8) K/uL Eos # 0.0 (0.0-0.7) K/uL Baso # 0.0 (0.0-0.2) K/uL Neutrophils % (Manual) 90 H (50-75) % Lymphocytes % (Manual) 8 L (20-40) % Monocytes % (Manual) 2 (0-10) % Platelet Estimate Normal (NORMAL) Polychromasia Slight Hypochromasia (manual) Slight Retic Count (0.5-1.5) % Sodium (132-148) mmol/L Potassium (3.6-5.2) mmol/L Chloride (98-107) mmol/L Carbon Dioxide (22-30) mmol/L Anion Gap (10-20) BUN (9-20) mg/dL Creatinine (0.8-1.5) mg/dL Est GFR ( Amer) Est GFR (Non-Af Amer) POC Glucose (mg/dL) 183 H 157 H (65-110) mg/dL Random Glucose (75-110) mg/dL Calcium (8.6-10.4) mg/dl Phosphorus (2.5-4.5) mg/dL Magnesium (1.6-2.3) mg/dL Ferritin ng/mL Total Bilirubin (0.2-1.3) mg/dL AST (17-59) U/L ALT (21-72) U/L Alkaline Phosphatase (38-126) U/L Total Protein (6.3-8.3) g/dL Albumin (3.5-5.0) g/dL Globulin (2.2-3.9) gm/dL Albumin/Globulin Ratio (1.0-2.1) Vitamin B12 (239-931) pg/mL Folate ng/mL Blood Type Antibody Screen 10/27/17 10/27/17 10/27/17 Range/Units 07:19 06:37 06:37 WBC (4.8-10.8) K/uL RBC (4.40-5.90) Mil/uL Hgb (12.0-18.0) g/dL Hct (35.0-51.0) % MCV (80.0-94.0) fL MCH (27.0-31.0) pg MCHC (33.0-37.0) g/dL RDW (11.5-14.5) % Plt Count (130-400) K/uL MPV (7.2-11.7) fL Neut % (Auto) (50.0-75.0) % Lymph % (Auto) (20.0-40.0) % [place] % (Auto) (0.0-10.0) % Eos % (Auto) (0.0-4.0) % Baso % (Auto) (0.0-2.0) % Neut # (1.8-7.0) K/uL Lymph # (1.0-4.3) K/uL [place] # (0.0-0.8) K/uL Eos # (0.0-0.7) K/uL Baso # (0.0-0.2) K/uL Neutrophils % (Manual) (50-75) % Lymphocytes % (Manual) (20-40) % Monocytes % (Manual) (0-10) % Platelet Estimate (NORMAL) Polychromasia Hypochromasia (manual) Retic Count 3.8 H (0.5-1.5) % Sodium 138 (132-148) mmol/L Potassium 4.5 (3.6-5.2) mmol/L Chloride 109 H (98-107) mmol/L Carbon Dioxide 25 (22-30) mmol/L Anion Gap 8 L (10-20) BUN 41 H (9-20) mg/dL Creatinine 0.9 (0.8-1.5) mg/dL Est GFR ( Amer) > 60 Est GFR (Non-Af Amer) > 60 POC Glucose (mg/dL) 146 H (65-110) mg/dL Random Glucose 135 H (75-110) mg/dL Calcium 7.6 L (8.6-10.4) mg/dl Phosphorus 3.1 (2.5-4.5) mg/dL Magnesium 1.7 (1.6-2.3) mg/dL Ferritin 86.6 ng/mL Total Bilirubin 0.8 (0.2-1.3) mg/dL AST 39 (17-59) U/L ALT 36 (21-72) U/L Alkaline Phosphatase 43 (38-126) U/L Total Protein 5.5 L (6.3-8.3) g/dL Albumin 2.5 L (3.5-5.0) g/dL Globulin 2.9 (2.2-3.9) gm/dL Albumin/Globulin Ratio 0.9 L (1.0-2.1) Vitamin B12 403 (239-931) pg/mL Folate 13.2 ng/mL Blood Type Antibody Screen 10/27/17 10/27/1717 Range/Units 06:37 05:52 23:39 WBC 8.9 8.6 (4.8-10.8) K/uL RBC 2.67 L 2.44 L (4.40-5.90) Mil/uL Hgb 8.1 L 7.3 L (12.0-18.0) g/dL Hct 23.9 L 21.7 L (35.0-51.0) % MCV 89.3 89.1 (80.0-94.0) fL MCH 30.3 29.9 (27.0-31.0) pg MCHC 33.9 33.5 (33.0-37.0) g/dL RDW 14.2 14.4 (11.5-14.5) % Plt Count 194 218 (130-400) K/uL MPV 9.3 9.3 (7.2-11.7) fL Neut % (Auto) 81.1 H (50.0-75.0) % Lymph % (Auto) 9.1 L (20.0-40.0) % [place] % (Auto) 7.9 (0.0-10.0) % Eos % (Auto) 1.3 (0.0-4.0) % Baso % (Auto) 0.6 (0.0-2.0) % Neut # 7.2 H (1.8-7.0) K/uL Lymph # 0.8 L (1.0-4.3) K/uL [place] # 0.7 (0.0-0.8) K/uL Eos # 0.1 (0.0-0.7) K/uL Baso # 0.1 (0.0-0.2) K/uL Neutrophils % (Manual) 83 H (50-75) % Lymphocytes % (Manual) 11 L (20-40) % Monocytes % (Manual) 6 (0-10) % Platelet Estimate Normal (NORMAL) Polychromasia Slight Hypochromasia (manual) Slight Retic Count (0.5-1.5) % Sodium (132-148) mmol/L Potassium (3.6-5.2) mmol/L Chloride (98-107) mmol/L Carbon Dioxide (22-30) mmol/L Anion Gap (10-20) BUN (9-20) mg/dL Creatinine (0.8-1.5) mg/dL Est GFR ( Amer) Est GFR (Non-Af Amer) POC Glucose (mg/dL) 143 H (65-110) mg/dL Random Glucose (75-110) mg/dL Calcium (8.6-10.4) mg/dl Phosphorus (2.5-4.5) mg/dL Magnesium (1.6-2.3) mg/dL Ferritin ng/mL Total Bilirubin (0.2-1.3) mg/dL AST (17-59) U/L ALT (21-72) U/L Alkaline Phosphatase (38-126) U/L Total Protein (6.3-8.3) g/dL Albumin (3.5-5.0) g/dL Globulin (2.2-3.9) gm/dL Albumin/Globulin Ratio (1.0-2.1) Vitamin B12 (239-931) pg/mL Folate ng/mL Blood Type Antibody Screen 10/26/17 10/25/17 Range/Units 21:09 09:27 WBC (4.8-10.8) K/uL RBC (4.40-5.90) Mil/uL Hgb (12.0-18.0) g/dL Hct (35.0-51.0) % MCV (80.0-94.0) fL MCH (27.0-31.0) pg MCHC (33.0-37.0) g/dL RDW (11.5-14.5) % Plt Count (130-400) K/uL MPV (7.2-11.7) fL Neut % (Auto) (50.0-75.0) % Lymph % (Auto) (20.0-40.0) % [place] % (Auto) (0.0-10.0) % Eos % (Auto) (0.0-4.0) % Baso % (Auto) (0.0-2.0) % Neut # (1.8-7.0) K/uL Lymph # (1.0-4.3) K/uL [place] # (0.0-0.8) K/uL Eos # (0.0-0.7) K/uL Baso # (0.0-0.2) K/uL Neutrophils % (Manual) (50-75) % Lymphocytes % (Manual) (20-40) % Monocytes % (Manual) (0-10) % Platelet Estimate (NORMAL) Polychromasia Hypochromasia (manual) Retic Count (0.5-1.5) % Sodium (132-148) mmol/L Potassium (3.6-5.2) mmol/L Chloride (98-107) mmol/L Carbon Dioxide (22-30) mmol/L Anion Gap (10-20) BUN (9-20) mg/dL Creatinine (0.8-1.5) mg/dL Est GFR ( Amer) Est GFR (Non-Af Amer) POC Glucose (mg/dL) 154 H (65-110) mg/dL Random Glucose (75-110) mg/dL Calcium (8.6-10.4) mg/dl Phosphorus (2.5-4.5) mg/dL Magnesium (1.6-2.3) mg/dL Ferritin ng/mL Total Bilirubin (0.2-1.3) mg/dL AST (17-59) U/L ALT (21-72) U/L Alkaline Phosphatase (38-126) U/L Total Protein (6.3-8.3) g/dL Albumin (3.5-5.0) g/dL Globulin (2.2-3.9) gm/dL Albumin/Globulin Ratio (1.0-2.1) Vitamin B12 (239-931) pg/mL Folate ng/mL Blood Type O NEGATIVE Antibody Screen Negative Laboratory Results - last 24 hr 10/25/17 10/26/17 10/26/17 09:27 21:09 23:39 WBC 8.6 RBC 2.44 L Hgb 7.3 L Hct 21.7 L MCV 89.1 MCH 29.9 MCHC 33.5 RDW 14.4 Plt Count 218 MPV 9.3 Neut % (Auto) Lymph % (Auto) [place] % (Auto) Eos % (Auto) Baso % (Auto) Neut # Lymph # [place] # Eos # Baso # Neutrophils % (Manual) Lymphocytes % (Manual) Monocytes % (Manual) Platelet Estimate Polychromasia Hypochromasia (manual) Retic Count Sodium Potassium Chloride Carbon Dioxide Anion Gap BUN Creatinine Est GFR ( Amer) Est GFR (Non-Af Amer) POC Glucose (mg/dL) 154 H Random Glucose Calcium Phosphorus Magnesium Ferritin Total Bilirubin AST ALT Alkaline Phosphatase Total Protein Albumin Globulin Albumin/Globulin Ratio Vitamin B12 Folate Blood Type O NEGATIVE Antibody Screen Negative 10/27/17 10/27/17 10/27/17 05:52 06:37 06:37 WBC 8.9 RBC 2.67 L Hgb 8.1 L Hct 23.9 L MCV 89.3 MCH 30.3 MCHC 33.9 RDW 14.2 Plt Count 194 MPV 9.3 Neut % (Auto) 81.1 H Lymph % (Auto) 9.1 L [place] % (Auto) 7.9 Eos % (Auto) 1.3 Baso % (Auto) 0.6 Neut # 7.2 H Lymph # 0.8 L [place] # 0.7 Eos # 0.1 Baso # 0.1 Neutrophils % (Manual) 83 H Lymphocytes % (Manual) 11 L Monocytes % (Manual) 6 Platelet Estimate Normal Polychromasia Slight Hypochromasia (manual) Slight Retic Count Sodium 138 Potassium 4.5 Chloride 109 H Carbon Dioxide 25 Anion Gap 8 L BUN 41 H Creatinine 0.9 Est GFR ( Amer) > 60 Est GFR (Non-Af Amer) > 60 POC Glucose (mg/dL) 143 H Random Glucose 135 H Calcium 7.6 L Phosphorus 3.1 Magnesium 1.7 Ferritin 86.6 Total Bilirubin 0.8 AST 39 ALT 36 Alkaline Phosphatase 43 Total Protein 5.5 L Albumin 2.5 L Globulin 2.9 Albumin/Globulin Ratio 0.9 L Vitamin B12 403 Folate 13.2 Blood Type Antibody Screen 10/27/17 10/27/17 10/27/17 06:37 07:19 11:07 WBC RBC Hgb Hct MCV MCH MCHC RDW Plt Count MPV Neut % (Auto) Lymph % (Auto) [place] % (Auto) Eos % (Auto) Baso % (Auto) Neut # Lymph # [place] # Eos # Baso # Neutrophils % (Manual) Lymphocytes % (Manual) Monocytes % (Manual) Platelet Estimate Polychromasia Hypochromasia (manual) Retic Count 3.8 H Sodium Potassium Chloride Carbon Dioxide Anion Gap BUN Creatinine Est GFR ( Amer) Est GFR (Non-Af Amer) POC Glucose (mg/dL) 146 H 157 H Random Glucose Calcium Phosphorus Magnesium Ferritin Total Bilirubin AST ALT Alkaline Phosphatase Total Protein Albumin Globulin Albumin/Globulin Ratio Vitamin B12 Folate Blood Type Antibody Screen 10/27/17 10/27/17 14:21 16:10 WBC 7.2 RBC 2.47 L Hgb 7.4 L Hct 21.8 L MCV 88.0 MCH 29.9 MCHC 33.9 RDW 14.1 Plt Count 206 MPV 8.5 Neut % (Auto) 87.8 H Lymph % (Auto) 6.1 L [place] % (Auto) 5.6 Eos % (Auto) 0.1 Baso % (Auto) 0.4 Neut # 6.3 Lymph # 0.4 L [place] # 0.4 Eos # 0.0 Baso # 0.0 Neutrophils % (Manual) 90 H Lymphocytes % (Manual) 8 L Monocytes % (Manual) 2 Platelet Estimate Normal Polychromasia Slight Hypochromasia (manual) Slight Retic Count Sodium Potassium Chloride Carbon Dioxide Anion Gap BUN Creatinine Est GFR ( Amer) Est GFR (Non-Af Amer) POC Glucose (mg/dL) 183 H Random Glucose Calcium Phosphorus Magnesium Ferritin Total Bilirubin AST ALT Alkaline Phosphatase Total Protein Albumin Globulin Albumin/Globulin Ratio Vitamin B12 Folate Blood Type Antibody Screen Critical Care Progress Note - Nutrition Nutrition: Nutrition Category Date Time Status NPO Diet [DIET] Diets 10/27/17 Dinner Active NPO Diet [DIET] Diets 10/28/17 Breakfast Active Attending/Attestation - Attestation I have personally seen and examined this patient.: Yes I have fully participated in the care of the patient.: Yes I have reviewed all pertinent clinical information: Yes Notes (Text): 10/27/17 18:15 patient seen and examined in the intensiveCare unit. Case discussed with house staff, cardiology, GI and neurology. Case discussed with family at length Repeat CAT scan of the head noted Patient seen by gastroenterology and possible EGD tomorrow Transfuse packed RBCs as needed Monitor CBC Patient started on Lovenox for CVA and MT As benefits outweigh the risks
[2017-10-27 14:28] LABS: BASO % 0.4 % (0.0-2.0); EOS % 0.1 % (0.0-4.0); HEMATOCRIT 21.8 % (35.0-51.0); LYMPH # 0.4 K/uL (1.0-4.3); LYMPH % 6.1 % (20.0-40.0); MEAN CORPUSCULAR HEMOGLOBIN 29.9 pg (27.0-31.0); MEAN CORPUSCULAR HGB CONC 33.9 g/dL (33.0-37.0); MEAN PLATELET VOLUME 8.5 fL (7.2-11.7); MONO # 0.4 K/uL (0.0-0.8); MONO % 5.6 % (0.0-10.0); PLATELET COUNT 206 K/uL (130-400); RED CELL DISTRIBUTION WIDTH 14.1 % (11.5-14.5); WHITE BLOOD COUNT 7.2 K/uL (4.8-10.8)
[2017-10-27 15:08] LABS: NEUTROPHIL 90 % (50-75); TOTAL CELLS COUNTED 100
[2017-10-27] MEDS ORDERED: Labetalol 25mg/5ml Syringe IVP STA (16:55)
--- NOTE | 2017-10-27 17:58 | CP.PCM.PN ---
Subjective - Date & Time of Evaluation Date of Evaluation: 10/27/17 Time of Evaluation: 15:00 - Subjective Subjective: clinically same Objective - Vital Signs/Intake and Output Vital Signs (last 24 hours): Temp Pulse Resp BP Pulse Ox 100.2 F H 69 29 H 176/74 H 100 10/27/17 17:21 10/27/17 17:21 10/27/17 17:21 10/27/17 17:21 10/27/17 17:01 Intake and Output: 10/27/17 10/27/17 06:59 18:59 Intake Total 785 125 Output Total 525 0 Balance 260 125 - Medications Medications: Current Medications Aspirin (Aspirin Chewable) 81 mg PO DAILY [facility] Last Admin: 10/27/17 11:45 Dose: Not Given Citalopram Hydrobromide (Celexa) 10 mg PO DAILY [facility] Last Admin: 10/27/17 11:45 Dose: Not Given Enoxaparin Sodium (Lovenox) 75 mg SC Q12H [facility] Last Admin: 10/27/17 17:23 Dose: 75 mg Furosemide (Lasix) 20 mg PO DAILY [facility] Last Admin: 10/27/17 11:45 Dose: Not Given Metoprolol Tartrate (Lopressor) 50 mg PO BID [facility] Last Admin: 10/27/17 17:06 Dose: Not Given Pantoprazole Sodium (Protonix Inj) 40 mg IVP Q12 [facility] Last Admin: 10/27/17 11:20 Dose: Not Given Rosuvastatin Calcium (Crestor) 10 mg PO HS [facility] Last Admin: 10/26/17 23:00 Dose: 10 mg Vitamin A (Vitamin A & D Oint Ud Foilpak) 1 ea TOP Q6H PRN PRN Reason: Dry skin Last Admin: 10/26/17 18:03 Dose: 1 ea - Labs Labs: 10/27/17 14:21 10/27/17 06:37 PT 11.9 SECONDS (9.7-12.2) 10/25/17 09:00 INR 1.1 10/25/17 09:00 APTT 25 SECONDS (21-34) 10/25/17 09:00 - Constitutional Appears: Well - Head Exam Head Exam: ATRAUMATIC, NORMAL INSPECTION, NORMOCEPHALIC - Eye Exam Eye Exam: EOMI, Normal appearance, PERRL Pupil Exam: NORMAL ACCOMODATION, PERRL - ENT Exam ENT Exam: Mucous Membranes Moist, Normal Exam - Neck Exam Neck Exam: Full ROM, Normal Inspection. absent: Lymphadenopathy - Respiratory Exam Respiratory Exam: Decreased Breath Sounds - Cardiovascular Exam Cardiovascular Exam: REGULAR RHYTHM, +S1, +S2 - GI/Abdominal Exam GI & Abdominal Exam: Soft, Diminished Bowel Sounds - Rectal Exam Rectal Exam: Deferred
[2017-10-27] MEDS ORDERED: Enoxaparin 80 mg Syringe SC SCH (18:00)
--- NOTE | 2017-10-27 18:07 | PCM.EEG ---
Electroencephalogram Report - Electroencephalogram Report Procedure Date: 10/27/17 Interpretation: Indication: Change in mental status. Medications were reviewed. Technical: This is a digitally recorded electroencephalogram. The international 10-20 electrode placement system is used for scalp electrode placement. Eighteen channels of scalp EEG are recorded Another channel was used for for ECG. The data are stored digitally and reviewed in reformatted montages for optimal display. 5-7 hertz activity was seen in the posterior region and was symmetrical on both sides. Diffuse Abnormality: Frontal intermittent rhythm delta slowing was seen. Focal abnormality: Intermittent focal slowing was seen. Periodic lateralized discharge was seen. Mainly over the Left temporal area. Impression: This EEG is abnormal. Epileptiform discharge was seen. This can represent a potential seizure focus. Some focal slowing was seen, suggestive of a focal abnormality. Clinical correlation is needed, but these abnormalities may be related to the recent cerebral infarcts.
--- NOTE | 2017-10-27 18:17 | CP.PCM.PN ---
Subjective - Date & Time of Evaluation Date of Evaluation: 10/27/17 Time of Evaluation: 15:00 - Subjective Subjective: Mr. Treva Davsion was seen and examined today at bedside in the ICU. His family was present and I had a discussion with them regarding the multiple medical and neurological issues he faces. Objective - Vital Signs/Intake and Output Vital Signs (last 24 hours): Temp Pulse Resp BP Pulse Ox 100.2 F H 69 29 H 176/74 H 100 10/27/17 17:21 10/27/17 17:21 10/27/17 17:21 10/27/17 17:21 10/27/17 17:01 Intake and Output: 10/27/17 10/27/17 06:59 18:59 Intake Total 785 125 Output Total 525 0 Balance 260 125 - Medications Medications: Current Medications Aspirin (Aspirin Chewable) 81 mg PO DAILY [facility] Last Admin: 10/27/17 11:45 Dose: Not Given Citalopram Hydrobromide (Celexa) 10 mg PO DAILY [facility] Last Admin: 10/27/17 11:45 Dose: Not Given Enoxaparin Sodium (Lovenox) 75 mg SC Q12H [facility] Last Admin: 10/27/17 17:23 Dose: 75 mg Furosemide (Lasix) 20 mg PO DAILY [facility] Last Admin: 10/27/17 11:45 Dose: Not Given Metoprolol Tartrate (Lopressor) 50 mg PO BID [facility] Last Admin: 10/27/17 17:06 Dose: Not Given Pantoprazole Sodium (Protonix Inj) 40 mg IVP Q12 [facility] Last Admin: 10/27/17 11:20 Dose: Not Given Rosuvastatin Calcium (Crestor) 10 mg PO HS [facility] Last Admin: 10/26/17 23:00 Dose: 10 mg Vitamin A (Vitamin A & D Oint Ud Foilpak) 1 ea TOP Q6H PRN PRN Reason: Dry skin Last Admin: 10/26/17 18:03 Dose: 1 ea - Labs Labs: 10/27/17 14:21 10/27/17 06:37 PT 11.9 SECONDS (9.7-12.2) 10/25/17 09:00 INR 1.1 10/25/17 09:00 APTT 25 SECONDS (21-34) 10/25/17 09:00 - Neurological Exam Neurological Exam: Altered, Awake, CN II-XII Intact Neuro motor strength exam: Left Upper Extremity: 2/1, Right Upper Extremity: 4, Left Lower Extremity: 2/1, Right Lower Extremity: 3 Additional comments: 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 NIHSS= 11 Assessment and Plan (1) Acute CVA (cerebrovascular accident) Assessment & Plan: Keep head of bed at 30 degrees, continue fluids with NS and transfuse as needed till hemoglobin is 10. Evaluate with an echocardiogram to rule out cardiac thrombus. Resume Lovenox for MN and stroke prevention in the setting of recent large MN and stroke. Monitor for mental status change and have a low threshold for repeat CT head to rule out bleed. Avoid dextrose containing IV fluids. Status: Acute (2) NSTEMI (non-ST elevated myocardial infarction) Assessment & Plan: Cardiology on board and recommended Lovenox. GI bleed is limiting usage, but after discussion with the critical care team, it seems more reasonable to treat the MN and prevent stroke, while transfusing if needed with PRBC. GI will evaluate source of bleeding and treat if possible. Status: Acute (3) GI bleed Status: Acute
--- NOTE | 2017-10-27 18:47 | CP.PCM.CON ---
History of Present Illness - History of Present Illness History of Present Illness: 77 year old male with a history of HTN, ischemic CVA, admitted with CVA, NSTEMI , with GI bleeding, and anemia. Per the patients family, he has not had blood problems in the past. He is currently receiving Lovenox and had a bowel movement with melanotic stool. His Lovenox is to be continued as its benefits outweight the current risk. Past medical, surgical, family, social history cannot be obtained from the patient. Allergies: Per documentation NKA Review of systems cannot be obtained from the patient. Past Patient History - Past Medical History & Family History Past Medical History?: Yes - Past Social History Smoking Status: Former Smoker - CARDIAC Hx Hypertension: Yes - NEUROLOGICAL Hx Neurological Disorder: Yes HX Cerebrovascular Accident: Yes - ENDOCRINE/METABOLIC Hx Diabetes Mellitus Type 2: Yes - MUSCULOSKELETAL/RHEUMATOLOGICAL Hx Falls: Yes - PSYCHIATRIC Hx Substance Use: No - ANESTHESIA Hx Anesthesia: No Meds Allergies/Adverse Reactions: Allergies Allergy/AdvReac Type Severity Reaction Status Date / Time No Known Allergies Allergy Verified 10/25/17 12:48 - Medications Medications: Current Medications Aspirin (Aspirin Chewable) 81 mg PO DAILY [facility] Last Admin: 10/27/17 11:45 Dose: Not Given Citalopram Hydrobromide (Celexa) 10 mg PO DAILY [facility] 234 B[facility]S AT [facility] Last Admin: 10/27/17 11:45 Dose: Not Given Enoxaparin Sodium (Lovenox) 75 mg SC Q12H [facility] 234 B[facility]S AT [facility] Last Admin: 10/27/17 17:23 Dose: 75 mg Furosemide (Lasix) 20 mg PO DAILY [facility] 234 B[facility]S AT [facility] Last Admin: 10/27/17 11:45 Dose: Not Given Metoprolol Tartrate (Lopressor) 50 mg PO BID [facility] 234 B[facility]S AT [facility] Last Admin: 10/27/17 17:06 Dose: Not Given Pantoprazole Sodium (Protonix Inj) 40 mg IVP Q12 [facility] 234 BEDS AT [facility] Last Admin: 10/27/17 11:20 Dose: Not Given Rosuvastatin Calcium (Crestor) 10 mg PO HS [facility] 234 BEDS AT [facility] Last Admin: 10/26/17 23:00 Dose: 10 mg Vitamin A (Vitamin A & D Oint Ud Foilpak) 1 ea TOP Q6H PRN PRN Reason: Dry skin Last Admin: 10/26/17 18:03 Dose: 1 ea Physical Exam - Head Exam Head Exam: ATRAUMATIC - Eye Exam Eye Exam: Normal appearance - ENT Exam ENT Exam: Mucous Membranes Dry - Respiratory Exam Respiratory Exam: NORMAL BREATHING PATTERN - Cardiovascular Exam Cardiovascular Exam: +S1, +S2 - GI/Abdominal Exam GI & Abdominal Exam: Normal Bowel Sounds Results - Vital Signs Recent Vital Signs: Last Vital Signs Temp 100.2 F H 10/27/17 17:21 Pulse 65 10/27/17 18:01 Resp 23 10/27/17 18:01 BP 167/74 H 10/27/17 18:01 Pulse Ox 100 10/27/17 18:01 - Labs Result Diagrams: 10/27/17 14:21 10/27/17 06:37 Labs: Laboratory Results - last 24 hr 10/25/17 10/26/17 10/26/17 09:27 21:09 23:39 WBC 8.6 RBC 2.44 L Hgb 7.3 L Hct 21.7 L MCV 89.1 MCH 29.9 MCHC 33.5 RDW 14.4 Plt Count 218 MPV 9.3 Neut % (Auto) Lymph % (Auto) [place] % (Auto) Eos % (Auto) Baso % (Auto) Neut # Lymph # [place] # Eos # Baso # Neutrophils % (Manual) Lymphocytes % (Manual) Monocytes % (Manual) Platelet Estimate Polychromasia Hypochromasia (manual) Retic Count Sodium Potassium Chloride Carbon Dioxide Anion Gap BUN Creatinine Est GFR ( Amer) Est GFR (Non-Af Amer) POC Glucose (mg/dL) 154 H Random Glucose Calcium Phosphorus Magnesium Ferritin Total Bilirubin AST ALT Alkaline Phosphatase Total Protein Albumin Globulin Albumin/Globulin Ratio Vitamin B12 Folate Blood Type O NEGATIVE Antibody Screen Negative 10/27/17 10/27/17 10/27/17 05:52 06:37 06:37 WBC 8.9 RBC 2.67 L Hgb 8.1 L Hct 23.9 L MCV 89.3 MCH 30.3 MCHC 33.9 RDW 14.2 Plt Count 194 MPV 9.3 Neut % (Auto) 81.1 H Lymph % (Auto) 9.1 L [place] % (Auto) 7.9 Eos % (Auto) 1.3 Baso % (Auto) 0.6 Neut # 7.2 H Lymph # 0.8 L [place] # 0.7 Eos # 0.1 Baso # 0.1 Neutrophils % (Manual) 83 H Lymphocytes % (Manual) 11 L Monocytes % (Manual) 6 Platelet Estimate Normal Polychromasia Slight Hypochromasia (manual) Slight Retic Count Sodium 138 Potassium 4.5 Chloride 109 H Carbon Dioxide 25 Anion Gap 8 L BUN 41 H Creatinine 0.9 Est GFR ( Amer) > 60 Est GFR (Non-Af Amer) > 60 POC Glucose (mg/dL) 143 H Random Glucose 135 H Calcium 7.6 L Phosphorus 3.1 Magnesium 1.7 Ferritin 86.6 Total Bilirubin 0.8 AST 39 ALT 36 Alkaline Phosphatase 43 Total Protein 5.5 L Albumin 2.5 L Globulin 2.9 Albumin/Globulin Ratio 0.9 L Vitamin B12 403 Folate 13.2 Blood Type Antibody Screen 10/27/17 10/27/17 10/27/17 06:37 07:19 11:07 WBC RBC Hgb Hct MCV MCH MCHC RDW Plt Count MPV Neut % (Auto) Lymph % (Auto) [place] % (Auto) Eos % (Auto) Baso % (Auto) Neut # Lymph # [place] # Eos # Baso # Neutrophils % (Manual) Lymphocytes % (Manual) Monocytes % (Manual) Platelet Estimate Polychromasia Hypochromasia (manual) Retic Count 3.8 H Sodium Potassium Chloride Carbon Dioxide Anion Gap BUN Creatinine Est GFR ( Amer) Est GFR (Non-Af Amer) POC Glucose (mg/dL) 146 H 157 H Random Glucose Calcium Phosphorus Magnesium Ferritin Total Bilirubin AST ALT Alkaline Phosphatase Total Protein Albumin Globulin Albumin/Globulin Ratio Vitamin B12 Folate Blood Type Antibody Screen 10/27/17 10/27/17 14:21 16:10 WBC 7.2 RBC 2.47 L Hgb 7.4 L Hct 21.8 L MCV 88.0 MCH 29.9 MCHC 33.9 RDW 14.1 Plt Count 206 MPV 8.5 Neut % (Auto) 87.8 H Lymph % (Auto) 6.1 L [place] % (Auto) 5.6 Eos % (Auto) 0.1 Baso % (Auto) 0.4 Neut # 6.3 Lymph # 0.4 L [place] # 0.4 Eos # 0.0 Baso # 0.0 Neutrophils % (Manual) 90 H Lymphocytes % (Manual) 8 L Monocytes % (Manual) 2 Platelet Estimate Normal Polychromasia Slight Hypochromasia (manual) Slight Retic Count Sodium Potassium Chloride Carbon Dioxide Anion Gap BUN Creatinine Est GFR ( Amer) Est GFR (Non-Af Amer) POC Glucose (mg/dL) 183 H Random Glucose Calcium Phosphorus Magnesium Ferritin Total Bilirubin AST ALT Alkaline Phosphatase Total Protein Albumin Globulin Albumin/Globulin Ratio Vitamin B12 Folate Blood Type Antibody Screen Assessment & Plan (1) Anemia Assessment and Plan: GI bleeding; GI evaluation borderline iron stores; will start the patient on IV iron normal B12 and folate stores transfusion support PRN Thank you for this interesting consult. Status: Acute
--- NOTE | 2017-10-27 20:44 | CARD ---
APPROVED REPORT EXAM: LIMITED Two-dimensional INDICATION Thrombus Stroke LEFT VENTRICLE The left ventricle is normal size. There is mild to moderate concentric left ventricular hypertrophy. The left ventricular function is normal. The left ventricular ejection fraction is within the normal range. There is normal LV segmental wall motion. No left ventricle thrombus noted on this study. RIGHT VENTRICLE The right ventricle is normal size. There is normal right ventricular wall thickness. ATRIA The left atrium size is normal. The right atrium size is normal. AORTIC VALVE The aortic valve is moderately sclerotic. MITRAL VALVE The mitral valve is normal in structure. <Conclusion> Very limited study The left ventricle is normal size. There is mild to moderate concentric left ventricular hypertrophy. The left ventricular function is normal. The left ventricular ejection fraction is within the normal range. There is normal LV segmental wall motion. The aortic valve is moderately sclerotic. No left ventricle thrombus noted on this study.
[2017-10-28 03:49] LABS: HEMATOCRIT 26.1 % (35.0-51.0); MEAN CELL VOLUME 89.1 fL (80.0-94.0); MEAN CORPUSCULAR HEMOGLOBIN 30.6 pg (27.0-31.0); MEAN CORPUSCULAR HGB CONC 34.4 g/dL (33.0-37.0); MEAN PLATELET VOLUME 9.2 fL (7.2-11.7); RED CELL DISTRIBUTION WIDTH 14.6 % (11.5-14.5); WHITE BLOOD COUNT 8.7 K/uL (4.8-10.8)
[2017-10-28 04:12] LABS: ALB/GLOB RATIO 1.2 (1.0-2.1); ALKALINE PHOSPHATASE 47 U/L (38-126); ALT/SGPT 32 U/L (21-72); AST/SGOT 21 U/L (17-59); BILIRUBIN,TOTAL 0.7 mg/dL (0.2-1.3); BLOOD UREA NITROGEN 45 mg/dL (9-20); CALCIUM 7.6 mg/dl (8.6-10.4); CARBON DIOXIDE 26 mmol/L (22-30); CHLORIDE 108 mmol/L (98-107); GFR AFRICAN-AMERICAN > 60; GLUCOSE,RANDOM 149 mg/dL (75-110); MAGNESIUM 1.7 mg/dL (1.6-2.3); PHOSPHOROUS 3.9 mg/dL (2.5-4.5); POTASSIUM 4.1 mmol/L (3.6-5.2); SODIUM 142 mmol/L (132-148); TOTAL PROTEIN 4.6 g/dL (6.3-8.3)
[2017-10-28 05:13] LABS: INR 1.1
--- NOTE | 2017-10-28 06:28 | CARD ---
APPROVED REPORT EXAM: Two-dimensional and M-mode echocardiogram with Doppler and color Dopple WITH BUBBLE STUDY Other Information Quality : GoodRhythm : INDICATION CVA/TIA Acute [place] Non STEMI 2D DIMENSIONS IVSd1.2 (0.7-1.1cm)LVDd4.2 (3.9-5.9cm) LVOT Diameter2.2 (1.8-2.4cm)PWd1.2 (0.7-1.1cm) LVDs3.3 (2.5-4.0cm)FS (%) 20.2 % LVEF (%)41.7 (>50%) M-Mode DIMENSIONS Left Atrium (MM)3.93 (2.5-4.0cm)Aortic Root3.40 (2.2-3.7cm) Aortic Cusp Exc.0.94 (1.5-2.0cm) Mitral Valve MV E Oygjbbcq985.9cm/sMV A Vpgncmge42.6cm/sE/A ratio1.6 TDI E/Lateral E'0.0E/Medial E'0.0 Tricuspid Valve TR Peak [id number]/sTR Peak [id number] LEFT VENTRICLE The left ventricle is normal size. There is mild concentric left ventricular hypertrophy. Left ventricle systolic function is normal. The Ejection Fraction is 45-50%. There is normal LV segmental wall motion. The left ventricular diastolic function is normal. RIGHT VENTRICLE The right ventricle is normal size. There is normal right ventricular wall thickness. The right ventricular systolic function is normal. ATRIA The left atrium size is normal. The right atrium size is normal. The interatrial septum is intact with no evidence for an atrial septal defect. AORTIC VALVE The aortic valve is normal in structure. No aortic regurgitation is present. There is no aortic valvular stenosis. There is no aortic valvular vegetation. MITRAL VALVE The mitral valve is normal in structure. There is no evidence of mitral valve prolapse. There is no mitral valve stenosis. Mitral regurgitation is mild. TRICUSPID VALVE The tricuspid valve is normal in structure. There is mild tricuspid regurgitation. Right ventricular systolic pressure is estimated at 40-50 mmHg. There is mild-moderate pulmonary hypertension. PULMONIC VALVE The pulmonic valve is not well visualized. There is no pulmonic valvular regurgitation. GREAT VESSELS The aortic root is normal in size. PERICARDIAL EFFUSION There is no significant pericardial effusion. <Conclusion> Left ventricle systolic function is normal. The Ejection Fraction is 45-50%. Hypertensive heart disease. No aortic regurgitation is present. There is no aortic valvular stenosis. Mitral regurgitation is mild. There is mild tricuspid regurgitation. There is mild-moderate pulmonary hypertension. There is no pulmonic valvular regurgitation.
[2017-10-28] MEDS: Ferric Sodium Gluconat Complex 62.5 mg/5 ml Vial IVPB SCH (09:05)
--- NOTE | 2017-10-28 12:08 | CP.PCM.PN ---
Subjective - Date & Time of Evaluation Date of Evaluation: 10/28/17 Time of Evaluation: 12:06 - Subjective Subjective: Mr. Treva Davison was seen and examined at the bedside in the ICU. He is responsive to pain stimuli with no verbal response noted. He also has left eye palsy with left side flaccid. The patient is a DNR. The patient is schedule for EGD today. There was no untoward events overnight. Objective - Vital Signs/Intake and Output Vital Signs (last 24 hours): Temp Pulse Resp BP Pulse Ox 98.3 F 63 28 H 167/69 H 100 10/28/17 08:00 10/28/17 11:01 10/28/17 11:01 10/28/17 11:01 10/28/17 11:01 Intake and Output: 10/28/17 10/28/17 06:59 18:59 Intake Total 789 150 Output Total 700 0 Balance 89 150 - Medications Medications: Current Medications Aspirin (Aspirin Chewable) 81 mg PO DAILY [facility] Last Admin: 10/27/17 11:45 Dose: Not Given Citalopram Hydrobromide (Celexa) 10 mg PO DAILY [facility] Last Admin: 10/27/17 11:45 Dose: Not Given Enoxaparin Sodium (Lovenox) 75 mg SC Q12H [facility] Last Admin: 10/27/17 17:23 Dose: 75 mg Ferric Sodium Gluconate Complex (Ferrlecit) 125 mg IVPB DAILY [facility] Stop: 11/05/17 10:01 Last Admin: 10/28/17 09:05 Dose: 125 mg Furosemide (Lasix) 20 mg PO DAILY [facility] Last Admin: 10/27/17 11:45 Dose: Not Given Metoprolol Tartrate (Lopressor) 50 mg PO BID [facility] Last Admin: 10/27/17 17:06 Dose: Not Given Pantoprazole Sodium (Protonix Inj) 40 mg IVP Q12 [facility] Last Admin: 10/28/17 09:05 Dose: 40 mg Rosuvastatin Calcium (Crestor) 10 mg PO HS [facility] Last Admin: 10/27/17 22:00 Dose: Not Given Vitamin A (Vitamin A & D Oint Ud Foilpak) 1 ea TOP Q6H PRN PRN Reason: Dry skin Last Admin: 10/26/17 18:03 Dose: 1 ea - Labs Labs: 10/28/17 03:42 10/28/17 03:42 PT 12.3 SECONDS (9.7-12.2) H 10/28/17 03:42 INR 1.1 10/28/17 03:42 APTT 25 SECONDS (21-34) 10/25/17 09:00 - Constitutional Appears: No Acute Distress - Head Exam Head Exam: ATRAUMATIC - Neurological Exam Neuro motor strength exam: Left Upper Extremity: 0, Right Upper Extremity: 2/1, Left Lower Extremity: 0, Right Lower Extremity: 2/1 Additional comments: Responsive to pain stimuli, but no verbal response noted. Assessment and Plan (1) Acute CVA (cerebrovascular accident) Assessment & Plan: Case discussed with Dr. Brandon, recommend repeat CT of the head without contrast. continue all current medical, physical, and occupational therapies. Status: Acute
[2017-10-28] MEDS ORDERED: Etomidate 20 mg/10ml Inj IV ONE ×2 (12:10→12:57)
[2017-10-28] MEDS ORDERED: Propofol 10 mg/ml Inj (20 ML) ONE (12:11)
[2017-10-28] MEDS ORDERED: Lidocaine 1% Inj (20ml) ONE (12:11)
[2017-10-28] MEDS ORDERED: Lactated Ringer's 500 ML IV ONE ×2 (12:15→12:50)
[2017-10-28] MEDS ORDERED: ePHEDrine 50 mg/ml Inj ONE ×2 (12:30→12:57)
[2017-10-28] MEDS ORDERED: Glucagon Recombinant 1 mg Inj ONE (12:41)
--- NOTE | 2017-10-28 13:06 | VASCLAB ---
PROCEDURE: HISTORY: CVA COMPARISON: None available. TECHNIQUE: Grayscale and duplex Doppler evaluation of the cervical carotid and vertebral arteries were performed. The common carotid, carotid bifurcations and cervical Internal Carotid Artery (ICA) and proximal External Carotid Artery (ECA) were evaluated. The vertebral arteries were evaluated for gross patency and flow direction. Report prepared by Ralph Nevarez, BS, RVT FINDINGS: RIGHT CAROTID ARTERIES: 1. Common Carotid Artery: No significant focal plaque formation of the right common carotid artery. Maximum Peak Systolic velocity: 120 cm/sec: End-diastolic velocity 15 cm/sec. 2. Carotid Bifurcation: Calcific plaque formation. Maximum Peak Systolic velocity: 89 cm/sec: End-diastolic velocity 10 cm/sec. 3. Internal Carotid Artery: Moderate plaque formation of the right proximal ICA which dose not results in hemodynamically significant stenosis. Plaque description: Calcific 3.1. Proximal Segment: Peak systolic velocity 128 cm/sec: End-diastolic velocity 10 cm/sec - % stenosis 0-15% 3.2. Middle Segment: Peak systolic velocity 61 cm/sec: End-diastolic velocity 14 cm/sec - % stenosis 0-15% 3.3. Distal Segment: Peak systolic velocity 64 cm/sec: End-diastolic velocity 16 cm/sec - % stenosis 0-15% 4. External Carotid Artery: No significant focal plaque formation. Peak systolic velocity 159 cm/sec 5. ICA/CCA Ratio: 1.1 LEFT CAROTID ARTERIES: 1. Common Carotid Artery: No significant focal plaque formation of the left common carotid artery. Maximum Peak Systolic velocity: 146 cm/sec: End-diastolic velocity 25 cm/sec. 2. Carotid Bifurcation: Calcific plaque formation. Maximum Peak Systolic velocity: 141 cm/sec: End-diastolic velocity 25 cm/sec. 3. Internal Carotid Artery: Mild plaque formation of the left proximal ICA which dose not results in a hemodynamically significant stenosis. Plaque description: Calcific 3.1. Proximal Segment: Peak systolic velocity 132 cm/sec: End-diastolic velocity 32 cm/sec - % stenosis 0-15% 3.2. Middle Segment: Peak systolic velocity 100 cm/sec: End-diastolic velocity 27 cm/sec - % stenosis 0-15% 3.3. Distal Segment: Peak systolic velocity 92 cm/sec: End-diastolic velocity 27 cm/sec - % stenosis 0-15% 4. External Carotid Artery: No significant focal plaque formation. Peak systolic velocity 141 cm/sec 5. ICA/CCA Ratio: 1.0 VERTEBRAL ARTERIES: 1. Right Vertebral Artery: The right vertebral artery flow direction is antegrade. 2. Left Vertebral Artery: The left vertebral artery flow direction is antegrade. OTHER FINDINGS: 1. Right Brachial Blood pressure: 187 mmHg. 2. Left Brachial Blood pressure: mmHg. IMPRESSION: RIGHT: Duplex scan does not suggest hemodynamically significant stenosis of the right extracranial carotid arteries. LEFT: Duplex scan does not suggest hemodynamically significant stenosis of the left extracranial carotid arteries.
--- NOTE | 2017-10-28 13:29 | CP.CCUPN ---
<Vik Blanton - Last Filed: 10/28/17 15:41> CCU Subjective - Physician Review Subjective (Free Text): PGY1 ICU Progress Note for Dr. Vera Patient seen and examined at bedside this morning. Patient is still not non- verbal and not moving the left side of his body. His right sided movements are slower today compared to yesterday. He is still following people with his eyes. Patient's lovenox was held this morning for an EGD later this morning with Dr. Torres. CCU Objective - Vital Signs / Intake & Output Vital Signs (Last 4 hours): Vital Signs Temp Pulse Resp BP Pulse Ox 10/28/17 12:17 98.3 F 70 25 H 185/83 H 100 10/28/17 12:01 69 28 H 167/69 H 100 10/28/17 12:00 97.8 F 66 23 100 10/28/17 11:01 63 28 H 167/69 H 100 10/28/17 11:00 74 22 100 10/28/17 10:03 78 26 H 195/86 H 100 10/28/17 10:00 75 18 100 Intake and Output (Last 8hrs): Intake & Output 10/27/17 10/28/17 10/28/17 22:59 06:59 14:59 Intake Total 942 428 150 Output Total 700 700 0 Balance 242 -272 150 Weight 160 lb 4 oz Intake: Intake, IV Amount 50 0 150 Left Forearm 150 Right Wrist 50 0 0 Oral 0 0 Blood Product [id number] 378 Apheresis Rbc Cp2d As3 Lr 281 2nd Unit [id number] Apheresis Rbc Cp2d As3 Lr 0 278 2nd Unit [id number] Other 50 50 Apheresis Rbc Cp2d As3 Lr 50 2nd Unit [id number] Apheresis Rbc Cp2d As3 Lr 50 2nd Unit [id number] Output: Urine 700 700 0 Condom 700 700 0 Other: # Bowel Movements 0 0 - Physical Exam Physical Exam Limitations: Positive for: Altered Mental Status Head: Positive for: Atraumatic, Normocephalic Pupils: Positive for: PERRL Extroacular Muscles: Positive for: EOMI Mouth: Positive for: Moist Mucous Membranes Respiratory/Chest: Positive for: Clear to Auscultation, Good Air Exchange. Negative for: Respiratory Distress, Accessory Muscle Use Cardiovascular: Positive for: Regular Rate and Rhythm Abdomen: Positive for: Normal Bowel Sounds. Negative for: Tenderness, Distention Upper Extremity: Positive for: Other (left sided hemiparesis) Lower Extremity: Positive for: Neurovascularly Intact, Other (left sided hemiparesis). Negative for: CALF TENDERNESS Neurological: Positive for: Other (left arm drift (baseline deficit from previous stroke)). Negative for: Speech Normal (aphasic) Skin: Positive for: Warm, Dry Psychiatric: Positive for: Alert, Lethargic - Medications Active Medications: Active Medications Generic Name Dose Route Start Last Admin Trade Name Freq PRN Reason Stop Dose Admin Aspirin 81 mg 10/26/17 10:00 10/27/17 11:45 Aspirin Chewable PO Not Given DAILY GENNA Citalopram Hydrobromide 10 mg 10/27/17 10:00 10/27/17 11:45 Celexa PO Not Given DAILY GENNA Enoxaparin Sodium 75 mg 10/27/17 18:00 10/27/17 17:23 Lovenox SC 75 mg Q12H GENNA Administration Ferric Sodium Gluconate Complex 125 mg 10/28/17 10:00 10/28/17 09:05 Ferrlecit IVPB 11/05/17 10:01 125 mg DAILY GENNA Administration Furosemide 20 mg 10/27/17 10:00 10/27/17 11:45 Lasix PO Not Given DAILY GENNA Pantoprazole Sodium 80 mg/ 100 mls @ 10 mls/hr 10/28/17 14:00 Sodium Chloride IVPB .Q10H GENNA 8 MG/HR Metoprolol Tartrate 50 mg 10/26/17 18:00 10/28/17 10:00 Lopressor PO Not Given BID GENNA Rosuvastatin Calcium 10 mg 10/26/17 22:00 10/27/17 22:00 Crestor PO Not Given HS GENNA Vitamin A 1 ea 10/26/17 17:56 10/26/17 18:03 Vitamin A & D Oint Ud Foilpak TOP 1 ea Q6H PRN Administration Dry skin - Patient Studies Lab Studies: Lab Studies 10/28/17 10/28/17 10/28/17 Range/Units 11:20 05:38 03:42 WBC (4.8-10.8) K/uL RBC (4.40-5.90) Mil/uL Hgb (12.0-18.0) g/dL Hct (35.0-51.0) % MCV (80.0-94.0) fL MCH (27.0-31.0) pg MCHC (33.0-37.0) g/dL RDW (11.5-14.5) % Plt Count (130-400) K/uL MPV (7.2-11.7) fL Neut % (Auto) (50.0-75.0) % Lymph % (Auto) (20.0-40.0) % Ritchie % (Auto) (0.0-10.0) % Eos % (Auto) (0.0-4.0) % Baso % (Auto) (0.0-2.0) % Neut # (1.8-7.0) K/uL Lymph # (1.0-4.3) K/uL Ritchie # (0.0-0.8) K/uL Eos # (0.0-0.7) K/uL Baso # (0.0-0.2) K/uL Neutrophils % (Manual) (50-75) % Lymphocytes % (Manual) (20-40) % Monocytes % (Manual) (0-10) % Platelet Estimate (NORMAL) Polychromasia Hypochromasia (manual) PT (9.7-12.2) SECONDS INR Sodium 142 (132-148) mmol/L Potassium 4.1 (3.6-5.2) mmol/L Chloride 108 H (98-107) mmol/L Carbon Dioxide 26 (22-30) mmol/L Anion Gap 12 (10-20) BUN 45 H (9-20) mg/dL Creatinine 1.0 (0.8-1.5) mg/dL Est GFR ( Amer) > 60 Est GFR (Non-Af Amer) > 60 POC Glucose (mg/dL) 187 H 174 H (65-110) mg/dL Random Glucose 149 H (75-110) mg/dL Calcium 7.6 L (8.6-10.4) mg/dl Phosphorus 3.9 (2.5-4.5) mg/dL Magnesium 1.7 (1.6-2.3) mg/dL Total Bilirubin 0.7 (0.2-1.3) mg/dL AST 21 (17-59) U/L ALT 32 (21-72) U/L Alkaline Phosphatase 47 (38-126) U/L Total Protein 4.6 L (6.3-8.3) g/dL Albumin 2.6 L (3.5-5.0) g/dL Globulin 2.1 L (2.2-3.9) gm/dL Albumin/Globulin Ratio 1.2 (1.0-2.1) Blood Type Antibody Screen 10/28/17 10/28/17 10/28/17 Range/Units 03:42 03:42 00:06 WBC 8.7 (4.8-10.8) K/uL RBC 2.93 L (4.40-5.90) Mil/uL Hgb 9.0 L (12.0-18.0) g/dL Hct 26.1 L (35.0-51.0) % MCV 89.1 (80.0-94.0) fL MCH 30.6 (27.0-31.0) pg MCHC 34.4 (33.0-37.0) g/dL RDW 14.6 H (11.5-14.5) % Plt Count 187 (130-400) K/uL MPV 9.2 (7.2-11.7) fL Neut % (Auto) (50.0-75.0) % Lymph % (Auto) (20.0-40.0) % Ritchie % (Auto) (0.0-10.0) % Eos % (Auto) (0.0-4.0) % Baso % (Auto) (0.0-2.0) % Neut # (1.8-7.0) K/uL Lymph # (1.0-4.3) K/uL Ritchie # (0.0-0.8) K/uL Eos # (0.0-0.7) K/uL Baso # (0.0-0.2) K/uL Neutrophils % (Manual) (50-75) % Lymphocytes % (Manual) (20-40) % Monocytes % (Manual) (0-10) % Platelet Estimate (NORMAL) Polychromasia Hypochromasia (manual) PT 12.3 H (9.7-12.2) SECONDS INR 1.1 Sodium (132-148) mmol/L Potassium (3.6-5.2) mmol/L Chloride (98-107) mmol/L Carbon Dioxide (22-30) mmol/L Anion Gap (10-20) BUN (9-20) mg/dL Creatinine (0.8-1.5) mg/dL Est GFR ( Amer) Est GFR (Non-Af Amer) POC Glucose (mg/dL) 175 H (65-110) mg/dL Random Glucose (75-110) mg/dL Calcium (8.6-10.4) mg/dl Phosphorus (2.5-4.5) mg/dL Magnesium (1.6-2.3) mg/dL Total Bilirubin (0.2-1.3) mg/dL AST (17-59) U/L ALT (21-72) U/L Alkaline Phosphatase (38-126) U/L Total Protein (6.3-8.3) g/dL Albumin (3.5-5.0) g/dL Globulin (2.2-3.9) gm/dL Albumin/Globulin Ratio (1.0-2.1) Blood Type Antibody Screen 10/27/17 10/27/17 10/25/17 Range/Units 16:10 14:21 09:27 WBC 7.2 (4.8-10.8) K/uL RBC 2.47 L (4.40-5.90) Mil/uL Hgb 7.4 L (12.0-18.0) g/dL Hct 21.8 L (35.0-51.0) % MCV 88.0 (80.0-94.0) fL MCH 29.9 (27.0-31.0) pg MCHC 33.9 (33.0-37.0) g/dL RDW 14.1 (11.5-14.5) % Plt Count 206 (130-400) K/uL MPV 8.5 (7.2-11.7) fL Neut % (Auto) 87.8 H (50.0-75.0) % Lymph % (Auto) 6.1 L (20.0-40.0) % Ritchie % (Auto) 5.6 (0.0-10.0) % Eos % (Auto) 0.1 (0.0-4.0) % Baso % (Auto) 0.4 (0.0-2.0) % Neut # 6.3 (1.8-7.0) K/uL Lymph # 0.4 L (1.0-4.3) K/uL Ritchie # 0.4 (0.0-0.8) K/uL Eos # 0.0 (0.0-0.7) K/uL Baso # 0.0 (0.0-0.2) K/uL Neutrophils % (Manual) 90 H (50-75) % Lymphocytes % (Manual) 8 L (20-40) % Monocytes % (Manual) 2 (0-10) % Platelet Estimate Normal (NORMAL) Polychromasia Slight Hypochromasia (manual) Slight PT (9.7-12.2) SECONDS INR Sodium (132-148) mmol/L Potassium (3.6-5.2) mmol/L Chloride (98-107) mmol/L Carbon Dioxide (22-30) mmol/L Anion Gap (10-20) BUN (9-20) mg/dL Creatinine (0.8-1.5) mg/dL Est GFR ( Amer) Est GFR (Non-Af Amer) POC Glucose (mg/dL) 183 H (65-110) mg/dL Random Glucose (75-110) mg/dL Calcium (8.6-10.4) mg/dl Phosphorus (2.5-4.5) mg/dL Magnesium (1.6-2.3) mg/dL Total Bilirubin (0.2-1.3) mg/dL AST (17-59) U/L ALT (21-72) U/L Alkaline Phosphatase (38-126) U/L Total Protein (6.3-8.3) g/dL Albumin (3.5-5.0) g/dL Globulin (2.2-3.9) gm/dL Albumin/Globulin Ratio (1.0-2.1) Blood Type O NEGATIVE Antibody Screen Negative Laboratory Results - last 24 hr 10/25/17 10/27/17 10/27/17 09:27 14:21 16:10 WBC 7.2 RBC 2.47 L Hgb 7.4 L Hct 21.8 L MCV 88.0 MCH 29.9 MCHC 33.9 RDW 14.1 Plt Count 206 MPV 8.5 Neut % (Auto) 87.8 H Lymph % (Auto) 6.1 L Ritchie % (Auto) 5.6 Eos % (Auto) 0.1 Baso % (Auto) 0.4 Neut # 6.3 Lymph # 0.4 L Ritchie # 0.4 Eos # 0.0 Baso # 0.0 Neutrophils % (Manual) 90 H Lymphocytes % (Manual) 8 L Monocytes % (Manual) 2 Platelet Estimate Normal Polychromasia Slight Hypochromasia (manual) Slight PT INR Sodium Potassium Chloride Carbon Dioxide Anion Gap BUN Creatinine Est GFR ( Amer) Est GFR (Non-Af Amer) POC Glucose (mg/dL) 183 H Random Glucose Calcium Phosphorus Magnesium Total Bilirubin AST ALT Alkaline Phosphatase Total Protein Albumin Globulin Albumin/Globulin Ratio Blood Type O NEGATIVE Antibody Screen Negative 10/28/17 10/28/17 10/28/17 00:06 03:42 03:42 WBC 8.7 RBC 2.93 L Hgb 9.0 L Hct 26.1 L MCV 89.1 MCH 30.6 MCHC 34.4 RDW 14.6 H Plt Count 187 MPV 9.2 Neut % (Auto) Lymph % (Auto) Ritchie % (Auto) Eos % (Auto) Baso % (Auto) Neut # Lymph # Ritchie # Eos # Baso # Neutrophils % (Manual) Lymphocytes % (Manual) Monocytes % (Manual) Platelet Estimate Polychromasia Hypochromasia (manual) PT 12.3 H INR 1.1 Sodium Potassium Chloride Carbon Dioxide Anion Gap BUN Creatinine Est GFR ( Amer) Est GFR (Non-Af Amer) POC Glucose (mg/dL) 175 H Random Glucose Calcium Phosphorus Magnesium Total Bilirubin AST ALT Alkaline Phosphatase Total Protein Albumin Globulin Albumin/Globulin Ratio Blood Type Antibody Screen 10/28/17 10/28/17 10/28/17 03:42 05:38 11:20 WBC RBC Hgb Hct MCV MCH MCHC RDW Plt Count MPV Neut % (Auto) Lymph % (Auto) Ritchie % (Auto) Eos % (Auto) Baso % (Auto) Neut # Lymph # Ritchie # Eos # Baso # Neutrophils % (Manual) Lymphocytes % (Manual) Monocytes % (Manual) Platelet Estimate Polychromasia Hypochromasia (manual) PT INR Sodium 142 Potassium 4.1 Chloride 108 H Carbon Dioxide 26 Anion Gap 12 BUN 45 H Creatinine 1.0 Est GFR ( Amer) > 60 Est GFR (Non-Af Amer) > 60 POC Glucose (mg/dL) 174 H 187 H Random Glucose 149 H Calcium 7.6 L Phosphorus 3.9 Magnesium 1.7 Total Bilirubin 0.7 AST 21 ALT 32 Alkaline Phosphatase 47 Total Protein 4.6 L Albumin 2.6 L Globulin 2.1 L Albumin/Globulin Ratio 1.2 Blood Type Antibody Screen Fingerstick Blood Sugar Results: 174 Review of Systems - Review of Systems Systems not reviewed;Unavailable: Other (not) Critical Care Progress Note - Nutrition Nutrition: Nutrition Category Date Time Status NPO Diet [DIET] Diets 10/28/17 Breakfast Active Assessment/Plan - Assessment and Plan (Free Text) Assessment: 77 year old male with a past medical history of multiple CVA (residual sided residual weakness) presenting with new onset stroke symptoms (no tPA) and NSTEMI Plan: Neuro: Dr. Brandon consulted, help appreciated Head CTA 10/27 - Interval development of complete occlusion of the right M1 segment approximately 10 mm distal to its origin. Asymmetric attenuation of the right M2 branches. No evidence of hemodynamically significant stenosis in the internal carotid arteries. Patent bilateral vertebral arteries. The right vertebral artery is dominant. Repeat head CT 10/27 - Suspect acute infarction within RIGHT parietal region. Recommend MRI. Chronic ischemic white matter changes. Sinus disease. Chronic left maxillary sinusitis. Repeat head CT 10/28 - Expansion of the infarcted territory to involve not only a small portion the right parietal lobe but now a large segment of the right MCA distribution with limited subfalcine herniation of approximately 3-4 mm to the left, effacement of the majority the right cerebral sulci and partial effacement of the right lateral ventricle. No intracranial hemorrhage is appreciated and there is no hydrocephalus at this time. Patient still not speaking speaking Left sided hemiparesis - able to follow simple commands with right hand neuro checks f/u neuro recs - recommend anticoag. - currently on hold due to GI bleed. CV: Dr. Cunningham consulted, help appreciated NSTEMI Trop 25.3/39.3/31.4 Will plan for cardiac cath once stable Lovenox 40mg SC daily - discontinued Aspirin 81mg PO daily Crestor 10mg PO HS f/u cardio recs GI: Dr. Torres consulted, help appreciated + stool occult blood - melanonic stool f/u GI recs - EGD showed a bleeding gastric ulcer in the fundus. There was a superficial vessel within the ulcer. Dr. Torres was unable to clip the vessel directly in the ulcer but a clip was placed on the superficial vessel lateral to the ulcer due to difficult positioning. The vessel was cauterized. - Consult IR, Dr. Stafford, for embolization of bleeding vessel. - Recommend no anti-coagulation at this time due to high risk of re-bleed - monitor with CBC with CBC q6h - NPO - Patient started on a protonix drip Hem: Hgb 9 Monitor for bleed with CBC q6h Resident Dr. Blanton spoke with the patient's daughter, Florinda Tilley, and she stated that she is ok with the patient being intubated, but does not want him to have CPR performed. She stated that she has spoken with multiple physicians about this and wishes not to be asked again. Patient made DNR. Case discussed with Dr. Chuy Blanton PGY1 <Keo Vear - Last Filed: 10/28/17 16:54> CCU Objective - Vital Signs / Intake & Output Vital Signs (Last 4 hours): Vital Signs Temp Pulse Resp BP Pulse Ox 10/28/17 16:00 81 27 H 10/28/17 15:35 85 28 H 160/87 H 10/28/17 15:00 78 27 H 99 10/28/17 14:28 77 27 H 152/72 H 98 10/28/17 14:13 76 25 H 156/73 H 100 10/28/17 14:00 68 19 100 10/28/17 13:58 70 24 147/71 100 10/28/17 13:45 69 22 147/71 100 10/28/17 13:43 75 25 H 146/66 100 10/28/17 13:30 76 20 130/73 100 10/28/17 13:28 86 24 130/73 98 10/28/17 13:15 98.2 F 80 24 130/67 97 10/28/17 13:13 68 28 H 130/67 88 L 10/28/17 13:12 72 Intake and Output (Last 8hrs): Intake & Output 10/28/17 10/28/17 10/28/17 06:59 14:59 22:59 Intake Total 428 165 20 Output Total 700 0 Balance -272 165 20 Weight 160 lb 4 oz Intake: Intake, IV Amount 0 165 20 Left Forearm 150 Right Wrist 0 15 20 Oral 0 0 Blood Product 378 Apheresis Rbc Cp2d As3 Lr 278 2nd Unit [id number] Other 50 Apheresis Rbc Cp2d As3 Lr 50 2nd Unit [id number] Output: Urine 700 0 Condom 700 0 Other: # Bowel Movements 0 0 - Medications Active Medications: Active Medications Generic Name Dose Route Start Last Admin Trade Name Freq PRN Reason Stop Dose Admin Aspirin 81 mg 10/26/17 10:00 10/28/17 13:47 Aspirin Chewable PO Not Given DAILY GENNA Citalopram Hydrobromide 10 mg 10/27/17 10:00 10/28/17 13:47 Celexa PO Not Given DAILY GENNA Enoxaparin Sodium 75 mg 10/27/17 18:00 10/27/17 17:23 Lovenox SC 75 mg Q12H GENNA Administration Ferric Sodium Gluconate Complex 125 mg 10/28/17 10:00 10/28/17 09:05 Ferrlecit IVPB 11/05/17 10:01 125 mg DAILY GENNA Administration Furosemide 20 mg 10/27/17 10:00 10/28/17 13:36 Lasix PO Not Given DAILY GENNA Pantoprazole Sodium 80 mg/ 100 mls @ 10 mls/hr 10/28/17 14:00 10/28/17 13:33 Sodium Chloride IVPB 10 mls/hr .Q10H GENNA Administration 8 MG/HR Metoprolol Tartrate 50 mg 10/26/17 18:00 10/28/17 10:00 Lopressor PO Not Given BID GENNA Rosuvastatin Calcium 10 mg 10/26/17 22:00 10/27/17 22:00 Crestor PO Not Given HS GENNA Vitamin A 1 ea 10/26/17 17:56 10/26/17 18:03 Vitamin A & D Oint Ud Foilpak TOP 1 ea Q6H PRN Administration Dry skin - Patient Studies Lab Studies: Lab Studies 10/28/17 10/28/17 10/28/17 Range/Units 14:58 11:20 05:38 WBC 9.2 (4.8-10.8) K/uL RBC 2.71 L (4.40-5.90) Mil/uL Hgb 8.3 L (12.0-18.0) g/dL Hct 24.6 L (35.0-51.0) % MCV 90.8 (80.0-94.0) fL MCH 30.6 (27.0-31.0) pg MCHC 33.7 (33.0-37.0) g/dL RDW 14.6 H (11.5-14.5) % Plt Count 189 (130-400) K/uL MPV 9.0 (7.2-11.7) fL PT (9.7-12.2) SECONDS INR Sodium (132-148) mmol/L Potassium (3.6-5.2) mmol/L Chloride (98-107) mmol/L Carbon Dioxide (22-30) mmol/L Anion Gap (10-20) BUN (9-20) mg/dL Creatinine (0.8-1.5) mg/dL Est GFR ( Amer) Est GFR (Non-Af Amer) POC Glucose (mg/dL) 187 H 174 H (65-110) mg/dL Random Glucose (75-110) mg/dL Calcium (8.6-10.4) mg/dl Phosphorus (2.5-4.5) mg/dL Magnesium (1.6-2.3) mg/dL Total Bilirubin (0.2-1.3) mg/dL AST (17-59) U/L ALT (21-72) U/L Alkaline Phosphatase (38-126) U/L Total Protein (6.3-8.3) g/dL Albumin (3.5-5.0) g/dL Globulin (2.2-3.9) gm/dL Albumin/Globulin Ratio (1.0-2.1) Blood Type Antibody Screen 10/28/17 10/28/17 10/28/17 Range/Units 03:42 03:42 03:42 WBC 8.7 (4.8-10.8) K/uL RBC 2.93 L (4.40-5.90) Mil/uL Hgb 9.0 L (12.0-18.0) g/dL Hct 26.1 L (35.0-51.0) % MCV 89.1 (80.0-94.0) fL MCH 30.6 (27.0-31.0) pg MCHC 34.4 (33.0-37.0) g/dL RDW 14.6 H (11.5-14.5) % Plt Count 187 (130-400) K/uL MPV 9.2 (7.2-11.7) fL PT 12.3 H (9.7-12.2) SECONDS INR 1.1 Sodium 142 (132-148) mmol/L Potassium 4.1 (3.6-5.2) mmol/L Chloride 108 H (98-107) mmol/L Carbon Dioxide 26 (22-30) mmol/L Anion Gap 12 (10-20) BUN 45 H (9-20) mg/dL Creatinine 1.0 (0.8-1.5) mg/dL Est GFR ( Amer) > 60 Est GFR (Non-Af Amer) > 60 POC Glucose (mg/dL) (65-110) mg/dL Random Glucose 149 H (75-110) mg/dL Calcium 7.6 L (8.6-10.4) mg/dl Phosphorus 3.9 (2.5-4.5) mg/dL Magnesium 1.7 (1.6-2.3) mg/dL Total Bilirubin 0.7 (0.2-1.3) mg/dL AST 21 (17-59) U/L ALT 32 (21-72) U/L Alkaline Phosphatase 47 (38-126) U/L Total Protein 4.6 L (6.3-8.3) g/dL Albumin 2.6 L (3.5-5.0) g/dL Globulin 2.1 L (2.2-3.9) gm/dL Albumin/Globulin Ratio 1.2 (1.0-2.1) Blood Type Antibody Screen 10/28/17 10/25/17 Range/Units 00:06 09:27 WBC (4.8-10.8) K/uL RBC (4.40-5.90) Mil/uL Hgb (12.0-18.0) g/dL Hct (35.0-51.0) % MCV (80.0-94.0) fL MCH (27.0-31.0) pg MCHC (33.0-37.0) g/dL RDW (11.5-14.5) % Plt Count (130-400) K/uL MPV (7.2-11.7) fL PT (9.7-12.2) SECONDS INR Sodium (132-148) mmol/L Potassium (3.6-5.2) mmol/L Chloride (98-107) mmol/L Carbon Dioxide (22-30) mmol/L Anion Gap (10-20) BUN (9-20) mg/dL Creatinine (0.8-1.5) mg/dL Est GFR ( Amer) Est GFR (Non-Af Amer) POC Glucose (mg/dL) 175 H (65-110) mg/dL Random Glucose (75-110) mg/dL Calcium (8.6-10.4) mg/dl Phosphorus (2.5-4.5) mg/dL Magnesium (1.6-2.3) mg/dL Total Bilirubin (0.2-1.3) mg/dL AST (17-59) U/L ALT (21-72) U/L Alkaline Phosphatase (38-126) U/L Total Protein (6.3-8.3) g/dL Albumin (3.5-5.0) g/dL Globulin (2.2-3.9) gm/dL Albumin/Globulin Ratio (1.0-2.1) Blood Type O NEGATIVE Antibody Screen Negative Laboratory Results - last 24 hr 10/25/17 10/28/17 10/28/17 09:27 00:06 03:42 WBC 8.7 RBC 2.93 L Hgb 9.0 L Hct 26.1 L MCV 89.1 MCH 30.6 MCHC 34.4 RDW 14.6 H Plt Count 187 MPV 9.2 PT INR Sodium Potassium Chloride Carbon Dioxide Anion Gap BUN Creatinine Est GFR ( Amer) Est GFR (Non-Af Amer) POC Glucose (mg/dL) 175 H Random Glucose Calcium Phosphorus Magnesium Total Bilirubin AST ALT Alkaline Phosphatase Total Protein Albumin Globulin Albumin/Globulin Ratio Blood Type O NEGATIVE Antibody Screen Negative 10/28/17 10/28/17 10/28/17 03:42 03:42 05:38 WBC RBC Hgb Hct MCV MCH MCHC RDW Plt Count MPV PT 12.3 H INR 1.1 Sodium 142 Potassium 4.1 Chloride 108 H Carbon Dioxide 26 Anion Gap 12 BUN 45 H Creatinine 1.0 Est GFR ( Amer) > 60 Est GFR (Non-Af Amer) > 60 POC Glucose (mg/dL) 174 H Random Glucose 149 H Calcium 7.6 L Phosphorus 3.9 Magnesium 1.7 Total Bilirubin 0.7 AST 21 ALT 32 Alkaline Phosphatase 47 Total Protein 4.6 L Albumin 2.6 L Globulin 2.1 L Albumin/Globulin Ratio 1.2 Blood Type Antibody Screen 10/28/17 10/28/17 11:20 14:58 WBC 9.2 RBC 2.71 L Hgb 8.3 L Hct 24.6 L MCV 90.8 MCH 30.6 MCHC 33.7 RDW 14.6 H Plt Count 189 MPV 9.0 PT INR Sodium Potassium Chloride Carbon Dioxide Anion Gap BUN Creatinine Est GFR ( Amer) Est GFR (Non-Af Amer) POC Glucose (mg/dL) 187 H Random Glucose Calcium Phosphorus Magnesium Total Bilirubin AST ALT Alkaline Phosphatase Total Protein Albumin Globulin Albumin/Globulin Ratio Blood Type Antibody Screen Critical Care Progress Note - Nutrition Nutrition: Nutrition Category Date Time Status NPO Diet [DIET] Diets 10/28/17 Breakfast Active Attending/Attestation - Attestation I have personally seen and examined this patient.: Yes I have fully participated in the care of the patient.: Yes I have reviewed all pertinent clinical information: Yes Notes (Text): 10/28/17 16:52 patient seen and examined in the intensive care unit. Case discussed with house staff in the morning rounds. EGD showed a bleeding gastric ulcer in the fundus. There was a superficial vessel within the ulcer. Dr. Torres was unable to clip the vessel directly in the ulcer but a clip was placed on the superficial vessel lateral to the ulcer due to difficult positioning. The vessel was cauterized Consult IR, Dr. Stafford, for embolization of bleeding vessel. discontinue Lovenox Transfuse packed RBCs as necessary Case discussed with family at length
[2017-10-28] MEDS: Pantoprazole 80 MG in Sodium Chloride 0.9% 100 ML IVPB SCH ×2 (13:33→23:30)
[2017-10-28 15:01] LABS: HEMATOCRIT 24.6 % (35.0-51.0); MEAN CELL VOLUME 90.8 fL (80.0-94.0); MEAN CORPUSCULAR HEMOGLOBIN 30.6 pg (27.0-31.0); MEAN CORPUSCULAR HGB CONC 33.7 g/dL (33.0-37.0); RED CELL DISTRIBUTION WIDTH 14.6 % (11.5-14.5); WHITE BLOOD COUNT 9.2 K/uL (4.8-10.8)
--- NOTE | 2017-10-28 15:47 | CT ---
PROCEDURE: CT HEAD WITHOUT CONTRAST. HISTORY: CVA COMPARISON: 10/27/[address] without contrast. TECHNIQUE: Axial computed tomography images were obtained through the head/brain without intravenous contrast. Radiation dose: Total exam DLP = 1685.27 mGy-cm. This CT exam was performed using one or more of the following dose reduction techniques: Automated exposure control, adjustment of the mA and/or kV according to patient size, and/or use of iterative reconstruction technique. FINDINGS: HEMORRHAGE: No intracranial hemorrhage. BRAIN: Prior limited infarcted territory has expanded to involve the majority of the right middle cerebral artery distribution of the mid right cerebrum to the vertex and also involving the inferior right MCA ated distribution inferiorly including the inferior right frontal and anterior pole right temporal lobe. Mass effect has increased with a minimal leftward midline shift of approximately 3-4 mm to the sulci at the right cerebral hemisphere are predominate effaced except for a few medial sulci at the frontal lobe. There is partial effacement of the right lateral ventricle with the 3rd ventricle appearing unremarkable. The basilar cisterns remain widely patent at this time. Age related neuro degenerative changes are reiterated. Posterior fossa contents appear stable and unremarkable grossly. VENTRICLES: Unremarkable. No hydrocephalus. CALVARIUM: Unremarkable. PARANASAL SINUSES: Unremarkable as visualized. No significant inflammatory changes. MASTOID AIR CELLS: Unremarkable as visualized. No inflammatory changes. OTHER FINDINGS: None. IMPRESSION: Expansion of the infarcted territory to involve not only a small portion the right parietal lobe but now a large segment of the right MCA distribution with limited subfalcine herniation of approximately 3-4 mm to the left, effacement of the majority the right cerebral sulci and partial effacement of the right lateral ventricle. No intracranial hemorrhage is appreciated and there is no hydrocephalus at this time. Continued clinical and imaging follow-up are advised.
[2017-10-28] MEDS: Metoprolol 1 mg/ml Inj IVP PRN (17:38)
--- NOTE | 2017-10-28 19:53 | CP.PCM.PN ---
Subjective - Date & Time of Evaluation Date of Evaluation: 10/28/17 Time of Evaluation: 14:40 - Subjective Subjective: clinically same Objective - Vital Signs/Intake and Output Vital Signs (last 24 hours): Temp Pulse Resp BP Pulse Ox 99.8 F H 72 27 H 159/71 H 100 10/28/17 17:00 10/28/17 19:00 10/28/17 19:00 10/28/17 18:35 10/28/17 19:00 Intake and Output: 10/28/17 10/29/17 18:59 06:59 Intake Total 205 10 Output Total 750 Balance -545 10 - Medications Medications: Current Medications Aspirin (Aspirin Chewable) 81 mg PO DAILY [facility] Last Admin: 10/28/17 13:47 Dose: Not Given Citalopram Hydrobromide (Celexa) 10 mg PO DAILY [facility] Last Admin: 10/28/17 13:47 Dose: Not Given Ferric Sodium Gluconate Complex (Ferrlecit) 125 mg IVPB DAILY [facility] Stop: 11/05/17 10:01 Last Admin: 10/28/17 09:05 Dose: 125 mg Furosemide (Lasix) 20 mg PO DAILY [facility] Last Admin: 10/28/17 13:36 Dose: Not Given Pantoprazole Sodium 80 mg/ (Sodium Chloride) 100 mls @ 10 mls/hr IVPB .Q10H [facility] PRN Reason: 8 MG/HR Last Admin: 10/28/17 13:33 Dose: 10 mls/hr Metoprolol Tartrate (Lopressor) 5 mg IVP Q6H PRN PRN Reason: for SBP >140mmHg Last Admin: 10/28/17 17:38 Dose: 5 mg Rosuvastatin Calcium (Crestor) 10 mg PO HS [facility] Last Admin: 10/27/17 22:00 Dose: Not Given Vitamin A (Vitamin A & D Oint Ud Foilpak) 1 ea TOP Q6H PRN PRN Reason: Dry skin Last Admin: 10/26/17 18:03 Dose: 1 ea - Labs Labs: 10/28/17 14:58 10/28/17 03:42 PT 12.3 SECONDS (9.7-12.2) H 10/28/17 03:42 INR 1.1 10/28/17 03:42 APTT 25 SECONDS (21-34) 10/25/17 09:00 - Constitutional Appears: Well - Head Exam Head Exam: ATRAUMATIC, NORMAL INSPECTION, NORMOCEPHALIC - Eye Exam Eye Exam: EOMI, Normal appearance, PERRL Pupil Exam: NORMAL ACCOMODATION, PERRL - ENT Exam ENT Exam: Mucous Membranes Moist, Normal Exam - Neck Exam Neck Exam: Full ROM, Normal Inspection. absent: Lymphadenopathy - Respiratory Exam Respiratory Exam: Decreased Breath Sounds - Cardiovascular Exam Cardiovascular Exam: REGULAR RHYTHM, +S1, +S2 - GI/Abdominal Exam GI & Abdominal Exam: Soft, Diminished Bowel Sounds - Rectal Exam Rectal Exam: Deferred
--- NOTE | 2017-10-28 20:34 | CP.PCM.PN ---
Subjective - Date & Time of Evaluation Date of Evaluation: 10/26/17 Time of Evaluation: 12:00 - Subjective Subjective: Patient seen and evaluated More awake Physical Examination - Physical Exam Head: Positive for: Atraumatic, Normocephalic Pupils: Positive for: PERRL Extroacular Muscles: Positive for: EOMI Mouth: Positive for: Moist Mucous Membranes Respiratory/Chest: Positive for: Clear to Auscultation, Good Air Exchange. Negative for: Respiratory Distress, Accessory Muscle Use Cardiovascular: Positive for: Regular Rate and Rhythm Abdomen: Positive for: Normal Bowel Sounds. Negative for: Tenderness, Distention Neurological: Positive for: Other (left arm drift (baseline deficit from previous stroke)). Negative for: Speech Normal (improving) Skin: Positive for: Warm, Dry Psychiatric: Positive for: Alert, Oriented x 3 Objective - Vital Signs/Intake and Output Vital Signs (last 24 hours): Temp Pulse Resp BP Pulse Ox 99.8 F H 72 27 H 159/71 H 100 10/28/17 17:00 10/28/17 19:00 10/28/17 19:00 10/28/17 18:35 10/28/17 19:00 Intake and Output: 10/28/17 10/29/17 18:59 06:59 Intake Total 205 10 Output Total 750 Balance -545 10 - Medications Medications: Current Medications Aspirin (Aspirin Chewable) 81 mg PO DAILY ON [facility] Last Admin: 10/28/17 13:47 Dose: Not Given Citalopram Hydrobromide (Celexa) 10 mg PO DAILY ON [facility] Last Admin: 10/28/17 13:47 Dose: Not Given Ferric Sodium Gluconate Complex (Ferrlecit) 125 mg IVPB DAILY ON [facility] Stop: 11/05/17 10:01 Last Admin: 10/28/17 09:05 Dose: 125 mg Furosemide (Lasix) 20 mg PO DAILY ON [facility] Last Admin: 10/28/17 13:36 Dose: Not Given Pantoprazole Sodium 80 mg/ (Sodium Chloride) 100 mls @ 10 mls/hr IVPB .Q10H [facility] PRN Reason: 8 MG/HR Last Admin: 10/28/17 13:33 Dose: 10 mls/hr Metoprolol Tartrate (Lopressor) 5 mg IVP Q6H PRN PRN Reason: for SBP >140mmHg Last Admin: 10/28/17 17:38 Dose: 5 mg Rosuvastatin Calcium (Crestor) 10 mg PO HS [facility] Last Admin: 10/27/17 22:00 Dose: Not Given Vitamin A (Vitamin A & D Oint Ud Foilpak) 1 ea TOP Q6H PRN PRN Reason: Dry skin Last Admin: 10/26/17 18:03 Dose: 1 ea - Labs Labs: 10/28/17 14:58 10/28/17 03:42 PT 12.3 SECONDS (9.7-12.2) H 10/28/17 03:42 INR 1.1 10/28/17 03:42 APTT 25 SECONDS (21-34) 10/25/17 09:00 Assessment and Plan - Assessment and Plan (Free Text) Assessment: Neuro: Dr. Brandon consulted, help appreciated Repeat head CT 10/26 - No evidence of acute infarct. No intracranial mass or hemorrhage. Age related atrophy and chronic white matter ischemic change. Chronic left maxillary sinusitis. Alert and following commands. Expressive aphasia improving. f/u neuro recs - recommend MRI of brain after blood transfusion CV: NSTEMI Trop 25.3/39.3/31.4 Will plan for cardiac cath once stable Lovenox 75mg SC BID --> decreased to 40mg SC daily, due to GIB Aspirin 81mg PO daily Crestor 10mg PO HS Hem: Hgb 6.5 from 7.3 (10/25) Transfused 2 units of pRBCs f/u repeat post transfusion CBC f/u stool occult blood
--- NOTE | 2017-10-28 20:37 | CP.PCM.PN ---
Subjective - Date & Time of Evaluation Date of Evaluation: 10/27/17 Time of Evaluation: 09:30 - Subjective Subjective: Patient seen and examined at bedside this morning. Patient is awake and alert but is not moving the left side of his body. He has known residual left sided weakness from prior CVA's but he now is experiencing hemiparesis. Patient was speaking yesterday but today is no longer speaking. Patient appears much more lethargic. When asked how he is feeling, patient attempts to answer questions with his right hand with thumbs up or down. ROS unattainable. Physical Exam - Constitutional Appears: No Acute Distress - Head Exam Head Exam: ATRAUMATIC, NORMOCEPHALIC - Eye Exam Eye Exam: absent: Scleral icterus - ENT Exam ENT Exam: Mucous Membranes Moist, Normal Oropharynx - Neck Exam Neck exam: Positive for: Normal Inspection. Negative for: Tenderness - Respiratory Exam Respiratory Exam: Clear to Auscultation Bilateral - Cardiovascular Exam Cardiovascular Exam: RRR, +S1, +S2 - GI/Abdominal Exam GI & Abdominal Exam: Normal Bowel Sounds, Soft. absent: Distended, Firm, Guarding, Tenderness - Rectal Exam Additional comments: brown stool - Extremities Exam Extremities exam: Positive for: normal capillary refill - Neurological Exam Additional comments: awake, arousable, follows simple commands in Romanian, will nod/shake head to answer simple questions, expressive aphasia, left sided dense hemiplegia - Psychiatric Exam Additional comments: aphasic - Skin Skin Exam: Dry, Warm Objective - Vital Signs/Intake and Output Vital Signs (last 24 hours): Temp Pulse Resp BP Pulse Ox 99.8 F H 72 27 H 159/71 H 100 10/28/17 17:00 10/28/17 19:00 10/28/17 19:00 10/28/17 18:35 10/28/17 19:00 Intake and Output: 10/28/17 10/29/17 18:59 06:59 Intake Total 205 10 Output Total 750 Balance -545 10 - Medications Medications: Current Medications Aspirin (Aspirin Chewable) 81 mg PO DAILY [facility] Last Admin: 10/28/17 13:47 Dose: Not Given Citalopram Hydrobromide (Celexa) 10 mg PO DAILY [facility] Last Admin: 10/28/17 13:47 Dose: Not Given Ferric Sodium Gluconate Complex (Ferrlecit) 125 mg IVPB DAILY [facility] Stop: 11/05/17 10:01 Last Admin: 10/28/17 09:05 Dose: 125 mg Furosemide (Lasix) 20 mg PO DAILY [facility] Last Admin: 10/28/17 13:36 Dose: Not Given Pantoprazole Sodium 80 mg/ (Sodium Chloride) 100 mls @ 10 mls/hr IVPB .Q10H [facility] PRN Reason: 8 MG/HR Last Admin: 10/28/17 13:33 Dose: 10 mls/hr Metoprolol Tartrate (Lopressor) 5 mg IVP Q6H PRN PRN Reason: for SBP >140mmHg Last Admin: 10/28/17 17:38 Dose: 5 mg Rosuvastatin Calcium (Crestor) 10 mg PO HS [facility] Last Admin: 10/27/17 22:00 Dose: Not Given Vitamin A (Vitamin A & D Oint Ud Foilpak) 1 ea TOP Q6H PRN PRN Reason: Dry skin Last Admin: 10/26/17 18:03 Dose: 1 ea - Labs Labs: 10/28/17 14:58 10/28/17 03:42 PT 12.3 SECONDS (9.7-12.2) H 10/28/17 03:42 INR 1.1 10/28/17 03:42 APTT 25 SECONDS (21-34) 10/25/17 09:00 Assessment and Plan - Assessment and Plan (Free Text) Assessment: 77 year old male with a past medical history of multiple CVA (residual sided residual weakness) presenting with new onset stroke symptoms (no tPA) and NSTEMI Plan: Neuro: Dr. Brandon consulted, help appreciated Head CTA 10/27 - Interval development of complete occlusion of the right M1 segment approximately 10 mm distal to its origin. Asymmetric attenuation of the right M2 branches. No evidence of hemodynamically significant stenosis in the internal carotid arteries. Patent bilateral vertebral arteries. The right vertebral artery is dominant. Repeat head CT 10/27 - Suspect acute infarction within RIGHT parietal region. Recommend MRI. Chronic ischemic white matter changes. Sinus disease. Chronic left maxillary sinusitis. No longer speaking Left sided hemiparesis - able to follow simple commands with right hand neuro checks f/u neuro recs - f/u ECHO - if no thrombus in ventricles, d/c all anticoagulation. If thrombus present, place back on anticoagulation. CV: NSTEMI Trop 25.3/39.3/31.4 Will plan for cardiac cath once stable Lovenox 40mg SC daily Aspirin 81mg PO daily Crestor 10mg PO HS Hem: Hgb 8.1 - s/p 3 units of pRBCs Transfuse 1 unit of pRBCs GI: Dr. Torres consulted, help appreciated + stool occult blood - melanonic stool f/u GI recs - Continue with PPI therapy - Case discussed with GI and Critical Care he is a high risk patient to undergo endoscopic evaluation/intervention, though due to potential need for initiation of anti-platelet/anti-coagulation therapy he would benefit from procedural evaluation. The risks/benefits of this will need to be carefully discussed in detail with patient family members prior to proceeding. (per GI note) - NPO
--- NOTE | 2017-10-28 20:41 | CP.PCM.PN ---
Subjective - Date & Time of Evaluation Date of Evaluation: 10/28/17 Time of Evaluation: 16:00 - Subjective Subjective: Patient seen and examined at bedside this morning. Patient is still not non- verbal and not moving the left side of his body. His right sided movements are slower today compared to yesterday. He is still following people with his eyes. Patient's lovenox was held this morning for an EGD later this morning with Dr. Torres. Physical Examination - Physical Exam Physical Exam Limitations: Positive for: Altered Mental Status Head: Positive for: Atraumatic, Normocephalic Pupils: Positive for: PERRL Extroacular Muscles: Positive for: EOMI Mouth: Positive for: Moist Mucous Membranes Respiratory/Chest: Positive for: Clear to Auscultation, Good Air Exchange. Negative for: Respiratory Distress, Accessory Muscle Use Cardiovascular: Positive for: Regular Rate and Rhythm Abdomen: Positive for: Normal Bowel Sounds. Negative for: Tenderness, Distention Upper Extremity: Positive for: Other (left sided hemiparesis) Lower Extremity: Positive for: Neurovascularly Intact, Other (left sided hemiparesis). Negative for: CALF TENDERNESS Neurological: Positive for: Other (left arm drift (baseline deficit from previous stroke)). Negative for: Speech Normal (aphasic) Skin: Positive for: Warm, Dry Psychiatric: Positive for: Alert, Lethargic Objective - Vital Signs/Intake and Output Vital Signs (last 24 hours): Temp Pulse Resp BP Pulse Ox 99.8 F H 72 27 H 159/71 H 100 10/28/17 17:00 10/28/17 19:00 10/28/17 19:00 10/28/17 18:35 10/28/17 19:00 Intake and Output: 10/28/17 10/29/17 18:59 06:59 Intake Total 205 10 Output Total 750 Balance -545 10 - Medications Medications: Current Medications Aspirin (Aspirin Chewable) 81 mg PO DAILY [facility] Last Admin: 10/28/17 13:47 Dose: Not Given Citalopram Hydrobromide (Celexa) 10 mg PO DAILY [facility] Last Admin: 10/28/17 13:47 Dose: Not Given Ferric Sodium Gluconate Complex (Ferrlecit) 125 mg IVPB DAILY [facility] Stop: 11/05/17 10:01 Last Admin: 10/28/17 09:05 Dose: 125 mg Furosemide (Lasix) 20 mg PO DAILY [facility] Last Admin: 10/28/17 13:36 Dose: Not Given Pantoprazole Sodium 80 mg/ (Sodium Chloride) 100 mls @ 10 mls/hr IVPB .Q10H [facility] PRN Reason: 8 MG/HR Last Admin: 10/28/17 13:33 Dose: 10 mls/hr Metoprolol Tartrate (Lopressor) 5 mg IVP Q6H PRN PRN Reason: for SBP >140mmHg Last Admin: 10/28/17 17:38 Dose: 5 mg Rosuvastatin Calcium (Crestor) 10 mg PO HS [facility] Last Admin: 10/27/17 22:00 Dose: Not Given Vitamin A (Vitamin A & D Oint Ud Foilpak) 1 ea TOP Q6H PRN PRN Reason: Dry skin Last Admin: 10/26/17 18:03 Dose: 1 ea - Labs Labs: 10/28/17 14:58 10/28/17 03:42 PT 12.3 SECONDS (9.7-12.2) H 10/28/17 03:42 INR 1.1 10/28/17 03:42 APTT 25 SECONDS (21-34) 10/25/17 09:00 Assessment and Plan - Assessment and Plan (Free Text) Assessment: 77 year old male with a past medical history of multiple CVA (residual sided residual weakness) presenting with new onset stroke symptoms (no tPA) and NSTEMI Plan: Neuro: Dr. Brandon consulted, help appreciated Head CTA 10/27 - Interval development of complete occlusion of the right M1 segment approximately 10 mm distal to its origin. Asymmetric attenuation of the right M2 branches. No evidence of hemodynamically significant stenosis in the internal carotid arteries. Patent bilateral vertebral arteries. The right vertebral artery is dominant. Repeat head CT 10/27 - Suspect acute infarction within RIGHT parietal region. Recommend MRI. Chronic ischemic white matter changes. Sinus disease. Chronic left maxillary sinusitis. Repeat head CT 10/28 - Expansion of the infarcted territory to involve not only a small portion the right parietal lobe but now a large segment of the right MCA distribution with limited subfalcine herniation of approximately 3-4 mm to the left, effacement of the majority the right cerebral sulci and partial effacement of the right lateral ventricle. No intracranial hemorrhage is appreciated and there is no hydrocephalus at this time. Patient still not speaking speaking Left sided hemiparesis - able to follow simple commands with right hand neuro checks f/u neuro recs - recommend anticoag. - currently on hold due to GI bleed. CV: Dr. Cunningham consulted, help appreciated NSTEMI Trop 25.3/39.3/31.4 Will plan for cardiac cath once stable Lovenox 40mg SC daily - discontinued Aspirin 81mg PO daily Crestor 10mg PO HS f/u cardio recs GI: Dr. Torres consulted, help appreciated + stool occult blood - melanonic stool f/u GI recs - EGD showed a bleeding gastric ulcer in the fundus. There was a superficial vessel within the ulcer. Dr. Torres was unable to clip the vessel directly in the ulcer but a clip was placed on the superficial vessel lateral to the ulcer due to difficult positioning. The vessel was cauterized. - Consult IR, Dr. Stafford, for embolization of bleeding vessel. - Recommend no anti-coagulation at this time due to high risk of re-bleed - monitor with CBC with CBC q6h - NPO - Patient started on a protonix drip Hem: Hgb 9 Monitor for bleed with CBC q6h Resident Dr. Blanton spoke with the patient's daughter, Florinda Tilley, and she stated that she is ok with the patient being intubated, but does not want him to have CPR performed. She stated that she has spoken with multiple physicians about this and wishes not to be asked again. Patient made DNR.
[2017-10-28 21:05] LABS: HEMATOCRIT 22.2 % (35.0-51.0); MEAN CELL VOLUME 89.5 fL (80.0-94.0); MEAN CORPUSCULAR HEMOGLOBIN 30.5 pg (27.0-31.0); MEAN CORPUSCULAR HGB CONC 34.1 g/dL (33.0-37.0); MEAN PLATELET VOLUME 8.7 fL (7.2-11.7); RED CELL DISTRIBUTION WIDTH 14.6 % (11.5-14.5); WHITE BLOOD COUNT 7.5 K/uL (4.8-10.8)
--- NOTE | 2017-10-28 22:14 | CP.PCM.PN ---
Subjective - Date & Time of Evaluation Date of Evaluation: 10/28/17 Time of Evaluation: 19:15 - Subjective Subjective: Appears comfortable EGD findings noted Objective - Vital Signs/Intake and Output Vital Signs (last 24 hours): Temp Pulse Resp BP Pulse Ox 99.8 F H 72 27 H 159/71 H 100 10/28/17 17:00 10/28/17 19:00 10/28/17 19:00 10/28/17 18:35 10/28/17 19:00 Intake and Output: 10/28/17 10/29/17 18:59 06:59 Intake Total 205 10 Output Total 750 Balance -545 10 - Medications Medications: Current Medications Aspirin (Aspirin Chewable) 81 mg PO DAILY [facility] Last Admin: 10/28/17 13:47 Dose: Not Given Citalopram Hydrobromide (Celexa) 10 mg PO DAILY [facility] Last Admin: 10/28/17 13:47 Dose: Not Given Ferric Sodium Gluconate Complex (Ferrlecit) 125 mg IVPB DAILY [facility] Stop: 11/05/17 10:01 Last Admin: 10/28/17 09:05 Dose: 125 mg Furosemide (Lasix) 20 mg PO DAILY [facility] Last Admin: 10/28/17 13:36 Dose: Not Given Pantoprazole Sodium 80 mg/ (Sodium Chloride) 100 mls @ 10 mls/hr IVPB .Q10H [facility] PRN Reason: 8 MG/HR Last Admin: 10/28/17 13:33 Dose: 10 mls/hr Metoprolol Tartrate (Lopressor) 5 mg IVP Q6H PRN PRN Reason: for SBP >140mmHg Last Admin: 10/28/17 17:38 Dose: 5 mg Rosuvastatin Calcium (Crestor) 10 mg PO HS [facility] Last Admin: 10/28/17 21:51 Dose: Not Given Vitamin A (Vitamin A & D Oint Ud Foilpak) 1 ea TOP Q6H PRN PRN Reason: Dry skin Last Admin: 10/26/17 18:03 Dose: 1 ea - Labs Labs: 10/28/17 21:00 10/28/17 03:42 PT 12.3 SECONDS (9.7-12.2) H 10/28/17 03:42 INR 1.1 10/28/17 03:42 APTT 25 SECONDS (21-34) 10/25/17 09:00 - Head Exam Head Exam: ATRAUMATIC - Eye Exam Eye Exam: Normal appearance - ENT Exam ENT Exam: Mucous Membranes Dry - Respiratory Exam Respiratory Exam: NORMAL BREATHING PATTERN - Cardiovascular Exam Cardiovascular Exam: +S1, +S2 - GI/Abdominal Exam GI & Abdominal Exam: Normal Bowel Sounds Assessment and Plan (1) Anemia Assessment & Plan: GI bleeding EGD revealed gastritis and nonbleeding duodenal ulcer borderline iron stores on IV iron transfusion support PRN Status: Acute
[2017-10-29 04:17] LABS: LYMPH # 0.7 K/uL (1.0-4.3); MEAN PLATELET VOLUME 8.9 fL (7.2-11.7)
[2017-10-29 04:26] LABS: BASO % 0.6 % (0.0-2.0); EOS % 0.5 % (0.0-4.0); HEMATOCRIT 21.5 % (35.0-51.0); LYMPH % 10.6 % (20.0-40.0); MEAN CELL VOLUME 89.4 fL (80.0-94.0); MEAN CORPUSCULAR HEMOGLOBIN 30.8 pg (27.0-31.0); MEAN CORPUSCULAR HGB CONC 34.5 g/dL (33.0-37.0); MONO # 0.7 K/uL (0.0-0.8); MONO % 10.3 % (0.0-10.0); NRBC % 0.1 % (0.0-2.0); RED CELL DISTRIBUTION WIDTH 14.4 % (11.5-14.5); WHITE BLOOD COUNT 7.1 K/uL (4.8-10.8)
[2017-10-29 06:43] LABS: ALB/GLOB RATIO 0.8 (1.0-2.1); ALKALINE PHOSPHATASE 50 U/L (38-126); ALT/SGPT 42 U/L (21-72); AST/SGOT 38 U/L (17-59); BILIRUBIN,TOTAL 0.4 mg/dL (0.2-1.3); BLOOD UREA NITROGEN 34 mg/dL (9-20); CALCIUM 8.1 mg/dl (8.6-10.4); CARBON DIOXIDE 30 mmol/L (22-30); CHLORIDE 110 mmol/L (98-107); GFR AFRICAN-AMERICAN > 60; GLUCOSE,RANDOM 138 mg/dL (75-110); MAGNESIUM 1.8 mg/dL (1.6-2.3); POTASSIUM 3.9 mmol/L (3.6-5.2); SODIUM 143 mmol/L (132-148); TOTAL PROTEIN 5.5 g/dL (6.3-8.3)
--- NOTE | 2017-10-29 08:47 | CP.PCM.PN ---
<Izabela Lindsey - Last Filed: 10/29/17 08:58> Subjective - Date & Time of Evaluation Date of Evaluation: 10/29/17 Time of Evaluation: 06:00 - Subjective Subjective: GI Fellow PGY4 Progress Note Pt seen and evaluated at bedside, per nursing no rectal bleeding overnight. Pt still aphasic but more alert this am. Pt NPO for IR embolization today. NGT in place during endoscopy tomorrow. ROS: A 12pt ROS was negative except as above. Objective - Vital Signs/Intake and Output Vital Signs (last 24 hours): Temp Pulse Resp BP Pulse Ox 98.4 F 73 24 172/65 H 100 10/29/17 05:00 10/29/17 08:00 10/29/17 08:00 10/29/17 07:34 10/29/17 08:00 Intake and Output: 10/29/17 10/29/17 06:59 18:59 Intake Total 120 40 Output Total 800 50 Balance -680 -10 - Medications Medications: Current Medications Aspirin (Aspirin Chewable) 81 mg PO DAILY [facility] Last Admin: 10/28/17 13:47 Dose: Not Given Citalopram Hydrobromide (Celexa) 10 mg PO DAILY [facility] Last Admin: 10/28/17 13:47 Dose: Not Given Ferric Sodium Gluconate Complex (Ferrlecit) 125 mg IVPB DAILY [facility] Stop: 11/05/17 10:01 Last Admin: 10/28/17 09:05 Dose: 125 mg Furosemide (Lasix) 20 mg PO DAILY [facility] Last Admin: 10/28/17 13:36 Dose: Not Given Pantoprazole Sodium 80 mg/ (Sodium Chloride) 100 mls @ 10 mls/hr IVPB .Q10H GENNA PRN Reason: 8 MG/HR Last Admin: 10/28/17 23:30 Dose: 10 mls/hr Metoprolol Tartrate (Lopressor) 5 mg IVP Q6H PRN PRN Reason: for SBP >140mmHg Last Admin: 10/28/17 17:38 Dose: 5 mg Rosuvastatin Calcium (Crestor) 10 mg PO HS GENNA Last Admin: 10/28/17 21:51 Dose: Not Given Vitamin A (Vitamin A & D Oint Ud Foilpak) 1 ea TOP Q6H PRN PRN Reason: Dry skin Last Admin: 10/26/17 18:03 Dose: 1 ea - Labs Labs: 10/29/17 04:10 10/29/17 06:20 PT 12.3 SECONDS (9.7-12.2) H 10/28/17 03:42 INR 1.1 10/28/17 03:42 APTT 25 SECONDS (21-34) 10/25/17 09:00 - Constitutional Appears: Non-toxic, No Acute Distress - Head Exam Head Exam: ATRAUMATIC, NORMAL INSPECTION, NORMOCEPHALIC - Eye Exam Eye Exam: EOMI, Normal appearance, PERRL Pupil Exam: NORMAL ACCOMODATION, PERRL - ENT Exam ENT Exam: Mucous Membranes Moist, Normal Exam Additional comments: NGT - Neck Exam Neck Exam: Full ROM - Respiratory Exam Respiratory Exam: Decreased Breath Sounds, NORMAL BREATHING PATTERN - Cardiovascular Exam Cardiovascular Exam: REGULAR RHYTHM, RRR - GI/Abdominal Exam GI & Abdominal Exam: Soft, Normal Bowel Sounds. absent: Distended, Guarding, Rigid, Tenderness - Rectal Exam Rectal Exam: Deferred - Extremities Exam Extremities Exam: Full ROM, Normal Inspection - Back Exam Back Exam: NORMAL INSPECTION - Neurological Exam Neurological Exam: Alert Additional comments: Left sided weakness, aphasic - Psychiatric Exam Psychiatric exam: Normal Affect - Skin Skin Exam: Dry, Intact, Normal Color, Warm Assessment and Plan - Assessment and Plan (Free Text) Assessment: This is a 77yM presenting with left sided weakness and found to have anemia and reported melena. 1. Duodenal Ulcer with nonbleeding visible vessel [place] Class IIa on EGD 2016 2. Anemia 3. CVA 4. NSTEMI Plan: -Continue supportive care for acute CVA and expressive aphasia/left sided weakness -Acute anemia, Hgb stable s/p 1U PRBCs, no active bleeding at this time -Monitor H/H and transfuse as needed -s/p EGD 10/28/2017 found to have Duodenal ulcer with nonbleeding visible vessel s/p epinephrine and heater probe for hemostatsis, clip at edge of ulcer bed -Plan for IR guided embolization of vessel today prior to cardiac cath and need for anticoagulation -Continue IV PPI drip -NPO for now, no TF via NGT -Continue to follow closely <Poli Torres - Last Filed: 10/29/17 13:37> Objective - Vital Signs/Intake and Output Vital Signs (last 24 hours): Temp Pulse Resp BP Pulse Ox 98.4 F 60 20 161/62 H 100 10/29/17 12:01 10/29/17 12:00 10/29/17 12:00 10/29/17 11:35 10/29/17 12:01 Intake and Output: 10/29/17 10/29/17 06:59 18:59 Intake Total 120 180 Output Total 800 100 Balance -680 80 - Medications Medications: Current Medications Aspirin (Aspirin Chewable) 81 mg PO DAILY [facility] Last Admin: 10/28/17 13:47 Dose: Not Given Citalopram Hydrobromide (Celexa) 10 mg PO DAILY [facility] Last Admin: 10/29/17 09:26 Dose: Not Given Ferric Sodium Gluconate Complex (Ferrlecit) 125 mg IVPB DAILY [facility] Stop: 11/05/17 10:01 Last Admin: 10/29/17 09:40 Dose: 125 mg Furosemide (Lasix) 20 mg PO DAILY [facility] Last Admin: 10/29/17 09:26 Dose: Not Given Pantoprazole Sodium 80 mg/ (Sodium Chloride) 100 mls @ 10 mls/hr IVPB .Q10H GENNA PRN Reason: 8 MG/HR Last Admin: 10/29/17 09:39 Dose: 10 mls/hr Metoprolol Tartrate (Lopressor) 5 mg IVP Q6H PRN PRN Reason: for SBP >140mmHg Last Admin: 10/29/17 11:13 Dose: 5 mg Rosuvastatin Calcium (Crestor) 10 mg PO HS [facility] Last Admin: 10/28/17 21:51 Dose: Not Given Vitamin A (Vitamin A & D Oint Ud Foilpak) 1 ea TOP Q6H PRN PRN Reason: Dry skin Last Admin: 10/26/17 18:03 Dose: 1 ea - Labs Labs: 10/29/17 04:10 10/29/17 06:20 PT 12.3 SECONDS (9.7-12.2) H 10/28/17 03:42 INR 1.1 10/28/17 03:42 APTT 25 SECONDS (21-34) 10/25/17 09:00 Attending/Attestation - Attestation I have personally seen and examined this patient.: Yes I have fully participated in the care of the patient.: Yes I have reviewed all pertinent clinical information, including history, physical exam and plan: Yes Notes (Text): 10/29/17 13:33 I have seen and examined patient with GI fellow. No acute events overnight, no reported abdominal pain, vomiting, or melena. He remains in critical care unit , is able to follow simple commands but still has aphasia. Review of vitals from today are normal. Acute CVA with left sided weakness NSTEMI Anemia, s/p EGD yesterday showing duodenal ulcer with actively bleeding visible vessel s/p epinephrine and gold probe therapy. Endoclip placed for purposes of future localization. - NPO - H/H stable, continue to monitor - Continue with IV PPI infusion for additional 24 hours - Active bleeding seems to have stopped, however due to likely need for patient to be on anti-platelet/anti-coagulation therapy, will plan for elective IR guided embolization today for supplemental prevention of recurrent bleeding. - Follow up neurology and cardiology recommendations - Will continue to monitor patient clinical course
[2017-10-29] MEDS: Pantoprazole 80 MG in Sodium Chloride 0.9% 100 ML IVPB SCH ×2 (09:39→21:32)
[2017-10-29] MEDS: Ferric Sodium Gluconat Complex 62.5 mg/5 ml Vial IVPB SCH (09:40)
[2017-10-29] MEDS: Metoprolol 1 mg/ml Inj IVP PRN (11:13)
--- NOTE | 2017-10-29 13:09 | CP.PCM.PN ---
Subjective - Date & Time of Evaluation Date of Evaluation: 10/29/17 Time of Evaluation: 13:09 - Subjective Subjective: Mr. Tilley was seen and examined at the bedside in ICU. He is more responsive to verbal and pain stimuli. He opens his eyes sponstaneously. He is not able to follow simple commands with his right upper extremity restless. He has a hand mitten on. The patient has left nares NGT. The patient is schedule for embolization of his GI bleeding. There was no untoward events overnight. Objective - Vital Signs/Intake and Output Vital Signs (last 24 hours): Temp Pulse Resp BP Pulse Ox 98.4 F 60 20 161/62 H 100 10/29/17 12:01 10/29/17 12:00 10/29/17 12:00 10/29/17 11:35 10/29/17 12:01 Intake and Output: 10/29/17 10/29/17 06:59 18:59 Intake Total 120 180 Output Total 800 100 Balance -680 80 - Medications Medications: Current Medications Aspirin (Aspirin Chewable) 81 mg PO DAILY [facility] Last Admin: 10/28/17 13:47 Dose: Not Given Citalopram Hydrobromide (Celexa) 10 mg PO DAILY [facility] Last Admin: 10/29/17 09:26 Dose: Not Given Ferric Sodium Gluconate Complex (Ferrlecit) 125 mg IVPB DAILY [facility] Stop: 11/05/17 10:01 Last Admin: 10/29/17 09:40 Dose: 125 mg Furosemide (Lasix) 20 mg PO DAILY [facility] Last Admin: 10/29/17 09:26 Dose: Not Given Pantoprazole Sodium 80 mg/ (Sodium Chloride) 100 mls @ 10 mls/hr IVPB .Q10H GENNA PRN Reason: 8 MG/HR Last Admin: 10/29/17 09:39 Dose: 10 mls/hr Metoprolol Tartrate (Lopressor) 5 mg IVP Q6H PRN PRN Reason: for SBP >140mmHg Last Admin: 10/29/17 11:13 Dose: 5 mg Rosuvastatin Calcium (Crestor) 10 mg PO HS [facility] Last Admin: 10/28/17 21:51 Dose: Not Given Vitamin A (Vitamin A & D Oint Ud Foilpak) 1 ea TOP Q6H PRN PRN Reason: Dry skin Last Admin: 10/26/17 18:03 Dose: 1 ea - Labs Labs: 10/29/17 04:10 10/29/17 06:20 PT 12.3 SECONDS (9.7-12.2) H 10/28/17 03:42 INR 1.1 10/28/17 03:42 APTT 25 SECONDS (21-34) 10/25/17 09:00 - Constitutional Appears: No Acute Distress - Neurological Exam Neurological Exam: Alert, Awake Neuro motor strength exam: Left Upper Extremity: 0, Right Upper Extremity: 5, Left Lower Extremity: 0, Right Lower Extremity: 4 Additional comments: neurological improved in comparisonfrom previous examination. He is more responsive with his left upper extremity flaccid. Assessment and Plan (1) Acute CVA (cerebrovascular accident) Assessment & Plan: Case discussed with dr. Brandon, continue all current medical, physical, and occupational therapies. Status: Acute
[2017-10-29] MEDS ORDERED: Esmolol 100 mg/10ml Inj IV ONE (14:33)
[2017-10-29] MEDS ORDERED: Phenylephrine 10 mg/ml Inj ONE (14:33)
[2017-10-29] MEDS ORDERED: ePHEDrine 50 mg/ml Inj ONE (14:33)
[2017-10-29] MEDS ORDERED: Iodixanol 320 MG/ML 100 ML BOTTLE IV ONE (14:55)
--- NOTE | 2017-10-29 16:02 | PCM.SURG1 ---
Surgeon's Initial Post Op Note - Surgeon's Notes Surgeon: Florencio Stafford MD Concrete Panel Installer: NONE Type of Anesthesia: IV Sedation Pre-Operative Diagnosis: GI bleed Operative Findings: Mesenteric angiogram showed no active extravation. Post-Operative Diagnosis: GI bleed Operation Performed: Gastroduodenal artery angiogram and embolization. Specimen/Specimens Removed: NONE Estimated Blood Loss: EBL {In ML}: 10 Blood Products Given: N/A Drains Used: No Drains Post-Op Condition: Fair Date of Surgery/Procedure: 10/29/17 Time of Surgery/Procedure: 16:00
--- NOTE | 2017-10-29 16:34 | CP.CCUPN ---
<Vik Blanton - Last Filed: 10/29/17 16:31> CCU Subjective - Physician Review Subjective (Free Text): PGY1 ICU Progress Note for Dr. Hilliard Patient seen and examined at bedside this morning. Patient is still non-verbal and not moving the left side of his body. His right sided body movements are slow. He has not had any events overnight. Scheduled for embolization of bleeding vessel this afternoon with IR. CCU Objective - Vital Signs / Intake & Output Vital Signs (Last 4 hours): Vital Signs Pulse Resp BP Pulse Ox 10/29/17 14:00 65 26 H 100 10/29/17 13:35 68 24 174/71 H 99 10/29/17 13:00 65 21 100 10/29/17 12:34 63 24 171/74 H 100 Intake and Output (Last 8hrs): Intake & Output 10/29/17 10/29/17 10/29/17 06:59 14:59 22:59 Intake Total 80 200 10 Output Total 800 100 Balance -720 100 10 Weight 160 lb 6.4 oz Intake: Intake, IV Amount 80 200 10 Left Forearm 110 Right Wrist 80 90 10 Oral 0 0 0 Output: Urine 800 100 Condom 800 100 Other: # Bowel Movements 0 0 0 - Physical Exam Head: Positive for: Atraumatic, Normocephalic Pupils: Positive for: PERRL Mouth: Positive for: Moist Mucous Membranes Respiratory/Chest: Positive for: Clear to Auscultation, Good Air Exchange. Negative for: Respiratory Distress, Accessory Muscle Use Cardiovascular: Positive for: Regular Rate and Rhythm Abdomen: Positive for: Normal Bowel Sounds. Negative for: Tenderness, Distention Upper Extremity: Positive for: Other (left sided hemiparesis) Lower Extremity: Positive for: Neurovascularly Intact, Other (left sided hemiparesis). Negative for: CALF TENDERNESS Neurological: Positive for: Other (Left sided hemiparesis ). Negative for: Speech Normal (aphasic) Skin: Positive for: Warm, Dry Psychiatric: Positive for: Alert, Lethargic (easily arousable. ) - Medications Active Medications: Active Medications Generic Name Dose Route Start Last Admin Trade Name Freq PRN Reason Stop Dose Admin Aspirin 81 mg 10/26/17 10:00 10/28/17 13:47 Aspirin Chewable PO Not Given DAILY [facility] Citalopram Hydrobromide 10 mg 10/27/17 10:00 12/07/17 09:26 Celexa PO Not Given DAILY GENNA Ferric Sodium Gluconate Complex 125 mg 10/28/17 10:00 10/29/17 09:40 Ferrlecit IVPB 11/05/17 10:01 125 mg DAILY GENNA Administration Furosemide 20 mg 10/27/17 10:00 10/29/17 09:26 Lasix PO Not Given DAILY GENNA Pantoprazole Sodium 80 mg/ 100 mls @ 10 mls/hr 10/28/17 14:00 10/29/17 09:39 Sodium Chloride IVPB 10 mls/hr .Q10H GENNA Administration 8 MG/HR Metoprolol Tartrate 5 mg 10/28/17 17:00 10/29/17 11:13 Lopressor IVP 5 mg Q6H PRN Administration for SBP >140mmHg Rosuvastatin Calcium 10 mg 10/26/17 22:00 10/28/17 21:51 Crestor PO Not Given HS GENNA Vitamin A 1 ea 10/26/17 17:56 10/26/17 18:03 Vitamin A & D Oint Ud Foilpak TOP 1 ea Q6H PRN Administration Dry skin - Patient Studies Lab Studies: Lab Studies 10/29/17 10/29/17 10/29/17 Range/Units 11:53 06:20 06:19 WBC (4.8-10.8) K/uL RBC (4.40-5.90) Mil/uL Hgb (12.0-18.0) g/dL Hct (35.0-51.0) % MCV (80.0-94.0) fL MCH (27.0-31.0) pg MCHC (33.0-37.0) g/dL RDW (11.5-14.5) % Plt Count (130-400) K/uL MPV (7.2-11.7) fL Neut % (Auto) (50.0-75.0) % Lymph % (Auto) (20.0-40.0) % [place] % (Auto) (0.0-10.0) % Eos % (Auto) (0.0-4.0) % Baso % (Auto) (0.0-2.0) % Neut # (1.8-7.0) K/uL Lymph # (1.0-4.3) K/uL [place] # (0.0-0.8) K/uL Eos # (0.0-0.7) K/uL Baso # (0.0-0.2) K/uL Sodium 143 (132-148) mmol/L Potassium 3.9 (3.6-5.2) mmol/L Chloride 110 H (98-107) mmol/L Carbon Dioxide 30 (22-30) mmol/L Anion Gap 6 L (10-20) BUN 34 H (9-20) mg/dL Creatinine 1.0 (0.8-1.5) mg/dL Est GFR ( Amer) > 60 Est GFR (Non-Af Amer) > 60 POC Glucose (mg/dL) 111 H 144 H (65-110) mg/dL Random Glucose 138 H (75-110) mg/dL Calcium 8.1 L (8.6-10.4) mg/dl Phosphorus 4.0 (2.5-4.5) mg/dL Magnesium 1.8 (1.6-2.3) mg/dL Total Bilirubin 0.4 (0.2-1.3) mg/dL AST 38 (17-59) U/L ALT 42 (21-72) U/L Alkaline Phosphatase 50 (38-126) U/L Total Protein 5.5 L (6.3-8.3) g/dL Albumin 2.5 L (3.5-5.0) g/dL Globulin 3.0 (2.2-3.9) gm/dL Albumin/Globulin Ratio 0.8 L (1.0-2.1) Blood Type Antibody Screen 10/29/17 10/28/17 10/28/17 Range/Units 04:10 23:52 21:00 WBC 7.1 7.5 (4.8-10.8) K/uL RBC 2.41 L 2.48 L (4.40-5.90) Mil/uL Hgb 7.4 L 7.6 L (12.0-18.0) g/dL Hct 21.5 L 22.2 L (35.0-51.0) % MCV 89.4 89.5 (80.0-94.0) fL MCH 30.8 30.5 (27.0-31.0) pg MCHC 34.5 34.1 (33.0-37.0) g/dL RDW 14.4 14.6 H (11.5-14.5) % Plt Count 176 188 (130-400) K/uL MPV 8.9 8.7 (7.2-11.7) fL Neut % (Auto) 78.0 H (50.0-75.0) % Lymph % (Auto) 10.6 L (20.0-40.0) % [place] % (Auto) 10.3 H (0.0-10.0) % Eos % (Auto) 0.5 (0.0-4.0) % Baso % (Auto) 0.6 (0.0-2.0) % Neut # 5.5 (1.8-7.0) K/uL Lymph # 0.7 L (1.0-4.3) K/uL [place] # 0.7 (0.0-0.8) K/uL Eos # 0.0 (0.0-0.7) K/uL Baso # 0.0 (0.0-0.2) K/uL Sodium (132-148) mmol/L Potassium (3.6-5.2) mmol/L Chloride (98-107) mmol/L Carbon Dioxide (22-30) mmol/L Anion Gap (10-20) BUN (9-20) mg/dL Creatinine (0.8-1.5) mg/dL Est GFR ( Amer) Est GFR (Non-Af Amer) POC Glucose (mg/dL) 157 H (65-110) mg/dL Random Glucose (75-110) mg/dL Calcium (8.6-10.4) mg/dl Phosphorus (2.5-4.5) mg/dL Magnesium (1.6-2.3) mg/dL Total Bilirubin (0.2-1.3) mg/dL AST (17-59) U/L ALT (21-72) U/L Alkaline Phosphatase (38-126) U/L Total Protein (6.3-8.3) g/dL Albumin (3.5-5.0) g/dL Globulin (2.2-3.9) gm/dL Albumin/Globulin Ratio (1.0-2.1) Blood Type Antibody Screen 10/28/17 10/28/17 Range/Units 17:39 17:18 WBC (4.8-10.8) K/uL RBC (4.40-5.90) Mil/uL Hgb (12.0-18.0) g/dL Hct (35.0-51.0) % MCV (80.0-94.0) fL MCH (27.0-31.0) pg MCHC (33.0-37.0) g/dL RDW (11.5-14.5) % Plt Count (130-400) K/uL MPV (7.2-11.7) fL Neut % (Auto) (50.0-75.0) % Lymph % (Auto) (20.0-40.0) % [place] % (Auto) (0.0-10.0) % Eos % (Auto) (0.0-4.0) % Baso % (Auto) (0.0-2.0) % Neut # (1.8-7.0) K/uL Lymph # (1.0-4.3) K/uL [place] # (0.0-0.8) K/uL Eos # (0.0-0.7) K/uL Baso # (0.0-0.2) K/uL Sodium (132-148) mmol/L Potassium (3.6-5.2) mmol/L Chloride (98-107) mmol/L Carbon Dioxide (22-30) mmol/L Anion Gap (10-20) BUN (9-20) mg/dL Creatinine (0.8-1.5) mg/dL Est GFR ( Amer) Est GFR (Non-Af Amer) POC Glucose (mg/dL) 139 H (65-110) mg/dL Random Glucose (75-110) mg/dL Calcium (8.6-10.4) mg/dl Phosphorus (2.5-4.5) mg/dL Magnesium (1.6-2.3) mg/dL Total Bilirubin (0.2-1.3) mg/dL AST (17-59) U/L ALT (21-72) U/L Alkaline Phosphatase (38-126) U/L Total Protein (6.3-8.3) g/dL Albumin (3.5-5.0) g/dL Globulin (2.2-3.9) gm/dL Albumin/Globulin Ratio (1.0-2.1) Blood Type O NEGATIVE Antibody Screen Negative Laboratory Results - last 24 hr 10/28/17 10/28/17 10/28/17 17:18 17:39 21:00 WBC 7.5 RBC 2.48 L Hgb 7.6 L Hct 22.2 L MCV 89.5 MCH 30.5 MCHC 34.1 RDW 14.6 H Plt Count 188 MPV 8.7 Neut % (Auto) Lymph % (Auto) [place] % (Auto) Eos % (Auto) Baso % (Auto) Neut # Lymph # [place] # Eos # Baso # Sodium Potassium Chloride Carbon Dioxide Anion Gap BUN Creatinine Est GFR ( Amer) Est GFR (Non-Af Amer) POC Glucose (mg/dL) 139 H Random Glucose Calcium Phosphorus Magnesium Total Bilirubin AST ALT Alkaline Phosphatase Total Protein Albumin Globulin Albumin/Globulin Ratio Blood Type O NEGATIVE Antibody Screen Negative 10/28/17 10/29/17 10/29/17 23:52 04:10 06:19 WBC 7.1 RBC 2.41 L Hgb 7.4 L Hct 21.5 L MCV 89.4 MCH 30.8 MCHC 34.5 RDW 14.4 Plt Count 176 MPV 8.9 Neut % (Auto) 78.0 H Lymph % (Auto) 10.6 L [place] % (Auto) 10.3 H Eos % (Auto) 0.5 Baso % (Auto) 0.6 Neut # 5.5 Lymph # 0.7 L [place] # 0.7 Eos # 0.0 Baso # 0.0 Sodium Potassium Chloride Carbon Dioxide Anion Gap BUN Creatinine Est GFR ( Amer) Est GFR (Non-Af Amer) POC Glucose (mg/dL) 157 H 144 H Random Glucose Calcium Phosphorus Magnesium Total Bilirubin AST ALT Alkaline Phosphatase Total Protein Albumin Globulin Albumin/Globulin Ratio Blood Type Antibody Screen 10/29/17 10/29/17 06:20 11:53 WBC RBC Hgb Hct MCV MCH MCHC RDW Plt Count MPV Neut % (Auto) Lymph % (Auto) [place] % (Auto) Eos % (Auto) Baso % (Auto) Neut # Lymph # [place] # Eos # Baso # Sodium 143 Potassium 3.9 Chloride 110 H Carbon Dioxide 30 Anion Gap 6 L BUN 34 H Creatinine 1.0 Est GFR ( Amer) > 60 Est GFR (Non-Af Amer) > 60 POC Glucose (mg/dL) 111 H Random Glucose 138 H Calcium 8.1 L Phosphorus 4.0 Magnesium 1.8 Total Bilirubin 0.4 AST 38 ALT 42 Alkaline Phosphatase 50 Total Protein 5.5 L Albumin 2.5 L Globulin 3.0 Albumin/Globulin Ratio 0.8 L Blood Type Antibody Screen Fingerstick Blood Sugar Results: 111 Review of Systems - Review of Systems Systems not reviewed;Unavailable: Other (non-verbal due to stroke) Critical Care Progress Note - Nutrition Nutrition: Nutrition Category Date Time Status NPO Diet [DIET] Diets 10/28/17 Breakfast Active Assessment/Plan - Assessment and Plan (Free Text) Assessment: 77 year old male with a past medical history of multiple CVA (residual sided residual weakness) presenting with new onset stroke symptoms (no tPA) and NSTEMI Plan: Neuro: Dr. Brandon consulted, help appreciated Head CTA 10/27 - Interval development of complete occlusion of the right M1 segment approximately 10 mm distal to its origin. Asymmetric attenuation of the right M2 branches. No evidence of hemodynamically significant stenosis in the internal carotid arteries. Patent bilateral vertebral arteries. The right vertebral artery is dominant. Repeat head CT 10/27 - Suspect acute infarction within RIGHT parietal region. Recommend MRI. Chronic ischemic white matter changes. Sinus disease. Chronic left maxillary sinusitis. Repeat head CT 10/28 - Expansion of the infarcted territory to involve not only a small portion the right parietal lobe but now a large segment of the right MCA distribution with limited subfalcine herniation of approximately 3-4 mm to the left, effacement of the majority the right cerebral sulci and partial effacement of the right lateral ventricle. No intracranial hemorrhage is appreciated and there is no hydrocephalus at this time. Patient still not speaking speaking Left sided hemiparesis - able to follow simple commands with right hand neuro checks f/u neuro recs - recommend anticoag. - currently on hold due to GI bleed. CV: Dr. Cunningham consulted, help appreciated NSTEMI Trop 25.3/39.3/31.4 Will plan for cardiac cath once stable Aspirin 81mg PO daily Crestor 10mg PO HS f/u cardio recs GI: Dr. Torres consulted, help appreciated + stool occult blood - melanonic stool f/u GI recs - EGD showed a bleeding gastric ulcer in the fundus. There was a superficial vessel within the ulcer. Dr. Torres was unable to clip the vessel directly in the ulcer but a clip was placed on the superficial vessel lateral to the ulcer due to difficult positioning. The vessel was cauterized. - Dr. Stafford (Interventional Radiology) consulted, for embolization of bleeding vessel. - Recommend no anti-coagulation at this time due to high risk of re-bleed - NPO - protonix drip - Patient is scheduled for embolization with Dr. Stafford this afternoon. Hem: Hgb 7.4 will continue to monitor after embolization Prophylactic Care: SCDs Anticoagulation on hold due to GI bleed - will await recommendations from Dr. Stafford after procedure today to restart anticoag On protonix drip Resident Dr. Blanton spoke with the patient's daughter, Florinda Tilley, on and she stated that she is ok with the patient being intubated, but does not want him to have CPR performed. She stated that she has spoken with multiple physicians about this and wishes not to be asked again. Patient made DNR. Case discussed with Dr. Arminda Blanton PGY1 <Jordon Hilliard - Last Filed: 10/29/17 18:18> CCU Objective - Vital Signs / Intake & Output Vital Signs (Last 4 hours): Vital Signs Temp Pulse Resp BP Pulse Ox 10/29/17 17:21 57 L 23 139/65 99 10/29/17 17:17 62 23 139/65 98 10/29/17 17:05 54 L 20 147/70 99 10/29/17 17:00 59 L 23 99 10/29/17 16:50 59 L 22 139/62 99 10/29/17 16:47 59 L 23 139/62 99 10/29/17 16:35 59 L 21 134/64 98 10/29/17 16:32 57 L 21 134/64 99 10/29/17 16:19 61 21 130/64 10/29/17 16:17 61 21 130/64 99 10/29/17 16:12 58 L 21 125/56 L 99 10/29/17 16:10 60 17 10/29/17 16:02 98.1 F 58 L 21 125/56 L 99 Intake and Output (Last 8hrs): Intake & Output 10/29/17 10/29/17 10/29/17 06:59 14:59 22:59 Intake Total 80 200 230 Output Total 800 100 50 Balance -720 100 180 Weight 160 lb 6.4 oz Intake: Intake, IV Amount 80 200 230 Left Forearm 110 200 Right Medial Port Wrist 10 Right Wrist 80 90 20 Oral 0 0 0 Output: Urine 800 100 50 Condom 800 100 50 Other: # Bowel Movements 0 0 0 - Medications Active Medications: Active Medications Generic Name Dose Route Start Last Admin Trade Name Freq PRN Reason Stop Dose Admin Aspirin 81 mg 10/26/17 10:00 10/28/17 13:47 Aspirin Chewable PO Not Given DAILY GENNA Citalopram Hydrobromide 10 mg 10/27/17 10:00 10/29/17 09:26 Celexa PO Not Given DAILY GENNA Ferric Sodium Gluconate Complex 125 mg 10/28/17 10:00 10/29/17 09:40 Ferrlecit IVPB 11/05/17 10:01 125 mg DAILY GENNA Administration Furosemide 20 mg 10/27/17 10:00 10/29/17 09:26 Lasix PO Not Given DAILY GENNA Pantoprazole Sodium 80 mg/ 100 mls @ 10 mls/hr 10/28/17 14:00 10/29/17 09:39 Sodium Chloride IVPB 10 mls/hr .Q10H GENNA Administration 8 MG/HR Sodium Chloride 1,000 mls @ 100 mls/hr 10/29/17 17:15 10/29/17 17:21 Sodium Chloride 0.9% IV 100 mls/hr .Q10H GENNA Administration Metoprolol Tartrate 5 mg 10/28/17 17:00 10/29/17 11:13 Lopressor IVP 5 mg Q6H PRN Administration for SBP >140mmHg Rosuvastatin Calcium 10 mg 10/26/17 22:00 10/28/17 21:51 Crestor PO Not Given HS GENNA Vitamin A 1 ea 10/26/17 17:56 10/26/17 18:03 Vitamin A & D Oint Ud Foilpak TOP 1 ea Q6H PRN Administration Dry skin - Patient Studies Lab Studies: Lab Studies 10/29/17 10/29/17 10/29/17 Range/Units 11:53 06:20 06:19 WBC (4.8-10.8) K/uL RBC (4.40-5.90) Mil/uL Hgb (12.0-18.0) g/dL Hct (35.0-51.0) % MCV (80.0-94.0) fL MCH (27.0-31.0) pg MCHC (33.0-37.0) g/dL RDW (11.5-14.5) % Plt Count (130-400) K/uL MPV (7.2-11.7) fL Neut % (Auto) (50.0-75.0) % Lymph % (Auto) (20.0-40.0) % [place] % (Auto) (0.0-10.0) % Eos % (Auto) (0.0-4.0) % Baso % (Auto) (0.0-2.0) % Neut # (1.8-7.0) K/uL Lymph # (1.0-4.3) K/uL [place] # (0.0-0.8) K/uL Eos # (0.0-0.7) K/uL Baso # (0.0-0.2) K/uL Sodium 143 (132-148) mmol/L Potassium 3.9 (3.6-5.2) mmol/L Chloride 110 H (98-107) mmol/L Carbon Dioxide 30 (22-30) mmol/L Anion Gap 6 L (10-20) BUN 34 H (9-20) mg/dL Creatinine 1.0 (0.8-1.5) mg/dL Est GFR ( Amer) > 60 Est GFR (Non-Af Amer) > 60 POC Glucose (mg/dL) 111 H 144 H (65-110) mg/dL Random Glucose 138 H (75-110) mg/dL Calcium 8.1 L (8.6-10.4) mg/dl Phosphorus 4.0 (2.5-4.5) mg/dL Magnesium 1.8 (1.6-2.3) mg/dL Total Bilirubin 0.4 (0.2-1.3) mg/dL AST 38 (17-59) U/L ALT 42 (21-72) U/L Alkaline Phosphatase 50 (38-126) U/L Total Protein 5.5 L (6.3-8.3) g/dL Albumin 2.5 L (3.5-5.0) g/dL Globulin 3.0 (2.2-3.9) gm/dL Albumin/Globulin Ratio 0.8 L (1.0-2.1) Blood Type Antibody Screen 10/29/17 10/28/17 10/28/17 Range/Units 04:10 23:52 21:00 WBC 7.1 7.5 (4.8-10.8) K/uL RBC 2.41 L 2.48 L (4.40-5.90) Mil/uL Hgb 7.4 L 7.6 L (12.0-18.0) g/dL Hct 21.5 L 22.2 L (35.0-51.0) % MCV 89.4 89.5 (80.0-94.0) fL MCH 30.8 30.5 (27.0-31.0) pg MCHC 34.5 34.1 (33.0-37.0) g/dL RDW 14.4 14.6 H (11.5-14.5) % Plt Count 176 188 (130-400) K/uL MPV 8.9 8.7 (7.2-11.7) fL Neut % (Auto) 78.0 H (50.0-75.0) % Lymph % (Auto) 10.6 L (20.0-40.0) % [place] % (Auto) 10.3 H (0.0-10.0) % Eos % (Auto) 0.5 (0.0-4.0) % Baso % (Auto) 0.6 (0.0-2.0) % Neut # 5.5 (1.8-7.0) K/uL Lymph # 0.7 L (1.0-4.3) K/uL [place] # 0.7 (0.0-0.8) K/uL Eos # 0.0 (0.0-0.7) K/uL Baso # 0.0 (0.0-0.2) K/uL Sodium (132-148) mmol/L Potassium (3.6-5.2) mmol/L Chloride (98-107) mmol/L Carbon Dioxide (22-30) mmol/L Anion Gap (10-20) BUN (9-20) mg/dL Creatinine (0.8-1.5) mg/dL Est GFR ( Amer) Est GFR (Non-Af Amer) POC Glucose (mg/dL) 157 H (65-110) mg/dL Random Glucose (75-110) mg/dL Calcium (8.6-10.4) mg/dl Phosphorus (2.5-4.5) mg/dL Magnesium (1.6-2.3) mg/dL Total Bilirubin (0.2-1.3) mg/dL AST (17-59) U/L ALT (21-72) U/L Alkaline Phosphatase (38-126) U/L Total Protein (6.3-8.3) g/dL Albumin (3.5-5.0) g/dL Globulin (2.2-3.9) gm/dL Albumin/Globulin Ratio (1.0-2.1) Blood Type Antibody Screen 10/28/17 Range/Units 17:18 WBC (4.8-10.8) K/uL RBC (4.40-5.90) Mil/uL Hgb (12.0-18.0) g/dL Hct (35.0-51.0) % MCV (80.0-94.0) fL MCH (27.0-31.0) pg MCHC (33.0-37.0) g/dL RDW (11.5-14.5) % Plt Count (130-400) K/uL MPV (7.2-11.7) fL Neut % (Auto) (50.0-75.0) % Lymph % (Auto) (20.0-40.0) % [place] % (Auto) (0.0-10.0) % Eos % (Auto) (0.0-4.0) % Baso % (Auto) (0.0-2.0) % Neut # (1.8-7.0) K/uL Lymph # (1.0-4.3) K/uL [place] # (0.0-0.8) K/uL Eos # (0.0-0.7) K/uL Baso # (0.0-0.2) K/uL Sodium (132-148) mmol/L Potassium (3.6-5.2) mmol/L Chloride (98-107) mmol/L Carbon Dioxide (22-30) mmol/L Anion Gap (10-20) BUN (9-20) mg/dL Creatinine (0.8-1.5) mg/dL Est GFR ( Amer) Est GFR (Non-Af Amer) POC Glucose (mg/dL) (65-110) mg/dL Random Glucose (75-110) mg/dL Calcium (8.6-10.4) mg/dl Phosphorus (2.5-4.5) mg/dL Magnesium (1.6-2.3) mg/dL Total Bilirubin (0.2-1.3) mg/dL AST (17-59) U/L ALT (21-72) U/L Alkaline Phosphatase (38-126) U/L Total Protein (6.3-8.3) g/dL Albumin (3.5-5.0) g/dL Globulin (2.2-3.9) gm/dL Albumin/Globulin Ratio (1.0-2.1) Blood Type O NEGATIVE Antibody Screen Negative Laboratory Results - last 24 hr 10/28/17 10/28/17 10/28/17 17:18 21:00 23:52 WBC 7.5 RBC 2.48 L Hgb 7.6 L Hct 22.2 L MCV 89.5 MCH 30.5 MCHC 34.1 RDW 14.6 H Plt Count 188 MPV 8.7 Neut % (Auto) Lymph % (Auto) [place] % (Auto) Eos % (Auto) Baso % (Auto) Neut # Lymph # [place] # Eos # Baso # Sodium Potassium Chloride Carbon Dioxide Anion Gap BUN Creatinine Est GFR ( Amer) Est GFR (Non-Af Amer) POC Glucose (mg/dL) 157 H Random Glucose Calcium Phosphorus Magnesium Total Bilirubin AST ALT Alkaline Phosphatase Total Protein Albumin Globulin Albumin/Globulin Ratio Blood Type O NEGATIVE Antibody Screen Negative 10/29/17 10/29/17 10/29/17 04:10 06:19 06:20 WBC 7.1 RBC 2.41 L Hgb 7.4 L Hct 21.5 L MCV 89.4 MCH 30.8 MCHC 34.5 RDW 14.4 Plt Count 176 MPV 8.9 Neut % (Auto) 78.0 H Lymph % (Auto) 10.6 L [place] % (Auto) 10.3 H Eos % (Auto) 0.5 Baso % (Auto) 0.6 Neut # 5.5 Lymph # 0.7 L [place] # 0.7 Eos # 0.0 Baso # 0.0 Sodium 143 Potassium 3.9 Chloride 110 H Carbon Dioxide 30 Anion Gap 6 L BUN 34 H Creatinine 1.0 Est GFR ( Amer) > 60 Est GFR (Non-Af Amer) > 60 POC Glucose (mg/dL) 144 H Random Glucose 138 H Calcium 8.1 L Phosphorus 4.0 Magnesium 1.8 Total Bilirubin 0.4 AST 38 ALT 42 Alkaline Phosphatase 50 Total Protein 5.5 L Albumin 2.5 L Globulin 3.0 Albumin/Globulin Ratio 0.8 L Blood Type Antibody Screen 10/29/17 11:53 WBC RBC Hgb Hct MCV MCH MCHC RDW Plt Count MPV Neut % (Auto) Lymph % (Auto) [place] % (Auto) Eos % (Auto) Baso % (Auto) Neut # Lymph # [place] # Eos # Baso # Sodium Potassium Chloride Carbon Dioxide Anion Gap BUN Creatinine Est GFR ( Amer) Est GFR (Non-Af Amer) POC Glucose (mg/dL) 111 H Random Glucose Calcium Phosphorus Magnesium Total Bilirubin AST ALT Alkaline Phosphatase Total Protein Albumin Globulin Albumin/Globulin Ratio Blood Type Antibody Screen Critical Care Progress Note - Nutrition Nutrition: Nutrition Category Date Time Status NPO Diet [DIET] Diets 10/28/17 Breakfast Active Assessment/Plan (1) NSTEMI (non-ST elevated myocardial infarction) Current Visit: Yes Status: Acute Priority: High Attending/Attestation - Attestation I have personally seen and examined this patient.: Yes I have fully participated in the care of the patient.: Yes I have reviewed all pertinent clinical information: Yes Notes (Text): 10/29/17 18:16 I have seen and examined the patient. Medical records, lab studies, and imaging were reviewed by me and a management plan was formulated on multidisciplinary rounds with resident Dr. Crandall. I agree with their documented assessment and plan. Patient underwent successful embolization of gastric duodenal artery for bleeding risk stabilization. Patient will need retirement a/c for past CVA and recent NSTEMI, cardiac cath pending. Critical Care Time 35 minutes. Multi-disciplinary rounds were performed with house staff, nursing, speech therapy, respiratory therapy, pharmacy and nutrition with integrated input from the primary team/attending and other consulting services. The documented time is cumulative and includes review of patient data/exams/labs/chart review and examination of the patient on rounds and throughout the day; time is exclusive of any procedures or teaching time. 10/29/17 18:17
[2017-10-29] MEDS: Sodium Chloride 0.9% 1,000 ML IV SCH (17:21)
--- NOTE | 2017-10-29 18:43 | CP.PCM.PN ---
Subjective - Date & Time of Evaluation Date of Evaluation: 10/29/17 Time of Evaluation: 15:20 - Subjective Subjective: clinically same Objective - Vital Signs/Intake and Output Vital Signs (last 24 hours): Temp Pulse Resp BP Pulse Ox 98.1 F 60 22 161/69 H 98 10/29/17 16:02 10/29/17 18:25 10/29/17 18:25 10/29/17 18:25 10/29/17 18:25 Intake and Output: 10/29/17 10/29/17 06:59 18:59 Intake Total 120 630 Output Total 800 300 Balance -680 330 - Medications Medications: Current Medications Aspirin (Aspirin Chewable) 81 mg PO DAILY [facility] Last Admin: 10/28/17 13:47 Dose: Not Given Citalopram Hydrobromide (Celexa) 10 mg PO DAILY [facility] Last Admin: 10/29/17 09:26 Dose: Not Given Ferric Sodium Gluconate Complex (Ferrlecit) 125 mg IVPB DAILY [facility] Stop: 11/05/17 10:01 Last Admin: 10/29/17 09:40 Dose: 125 mg Furosemide (Lasix) 20 mg PO DAILY [facility] Last Admin: 10/29/17 09:26 Dose: Not Given Pantoprazole Sodium 80 mg/ (Sodium Chloride) 100 mls @ 10 mls/hr IVPB .Q10H GENNA PRN Reason: 8 MG/HR Last Admin: 10/29/17 09:39 Dose: 10 mls/hr Sodium Chloride (Sodium Chloride 0.9%) 1,000 mls @ 100 mls/hr IV .Q10H [facility] Last Admin: 10/29/17 17:21 Dose: 100 mls/hr Metoprolol Tartrate (Lopressor) 5 mg IVP Q6H PRN PRN Reason: for SBP >140mmHg Last Admin: 10/29/17 11:13 Dose: 5 mg Rosuvastatin Calcium (Crestor) 10 mg PO HS [facility] Last Admin: 10/28/17 21:51 Dose: Not Given Vitamin A (Vitamin A & D Oint Ud Foilpak) 1 ea TOP Q6H PRN PRN Reason: Dry skin Last Admin: 10/26/17 18:03 Dose: 1 ea - Labs Labs: 10/29/17 04:10 10/29/17 06:20 PT 12.3 SECONDS (9.7-12.2) H 10/28/17 03:42 INR 1.1 10/28/17 03:42 APTT 25 SECONDS (21-34) 10/25/17 09:00 - Constitutional Appears: Well - Head Exam Head Exam: ATRAUMATIC, NORMAL INSPECTION, NORMOCEPHALIC - Eye Exam Eye Exam: EOMI, Normal appearance, PERRL Pupil Exam: NORMAL ACCOMODATION, PERRL - ENT Exam ENT Exam: Mucous Membranes Moist, Normal Exam - Neck Exam Neck Exam: Full ROM, Normal Inspection. absent: Lymphadenopathy - Respiratory Exam Respiratory Exam: Decreased Breath Sounds - Cardiovascular Exam Cardiovascular Exam: REGULAR RHYTHM, +S1, +S2 - GI/Abdominal Exam GI & Abdominal Exam: Soft, Diminished Bowel Sounds - Rectal Exam Rectal Exam: Deferred
--- NOTE | 2017-10-29 23:24 | CP.PCM.PN ---
Subjective - Date & Time of Evaluation Date of Evaluation: 10/29/17 Time of Evaluation: 07:20 - Subjective Subjective: Patient seen and evaluated Aphasic For gastric artery embolization today Objective - Vital Signs/Intake and Output Vital Signs (last 24 hours): Temp Pulse Resp BP Pulse Ox 98.1 F 70 23 163/71 H 99 10/29/17 16:02 10/29/17 22:28 10/29/17 22:28 10/29/17 22:28 10/29/17 22:28 Intake and Output: 10/29/17 10/30/17 18:59 06:59 Intake Total 630 440 Output Total 300 300 Balance 330 140 - Medications Medications: Current Medications Aspirin (Aspirin Chewable) 81 mg PO DAILY [facility] Last Admin: 10/28/17 13:47 Dose: Not Given Citalopram Hydrobromide (Celexa) 10 mg PO DAILY [facility] Last Admin: 10/29/17 09:26 Dose: Not Given Ferric Sodium Gluconate Complex (Ferrlecit) 125 mg IVPB DAILY [facility] Stop: 11/05/17 10:01 Last Admin: 10/29/17 09:40 Dose: 125 mg Furosemide (Lasix) 20 mg PO DAILY [facility] Last Admin: 10/29/17 09:26 Dose: Not Given Pantoprazole Sodium 80 mg/ (Sodium Chloride) 100 mls @ 10 mls/hr IVPB .Q10H [facility] PRN Reason: 8 MG/HR Last Admin: 10/29/17 21:32 Dose: Not Given Sodium Chloride (Sodium Chloride 0.9%) 1,000 mls @ 100 mls/hr IV .Q10H [facility] Last Admin: 10/29/17 17:21 Dose: 100 mls/hr Metoprolol Tartrate (Lopressor) 5 mg IVP Q6H PRN PRN Reason: for SBP >140mmHg Last Admin: 10/29/17 11:13 Dose: 5 mg Rosuvastatin Calcium (Crestor) 10 mg PO HS [facility] Last Admin: 10/29/17 21:39 Dose: Not Given Vitamin A (Vitamin A & D Oint Ud Foilpak) 1 ea TOP Q6H PRN PRN Reason: Dry skin Last Admin: 10/26/17 18:03 Dose: 1 ea - Labs Labs: 10/29/17 04:10 10/29/17 06:20 PT 12.3 SECONDS (9.7-12.2) H 10/28/17 03:42 INR 1.1 10/28/17 03:42 APTT 25 SECONDS (21-34) 10/25/17 09:00
--- NOTE | 2017-10-30 01:33 | CP.PCM.PN ---
Subjective - Date & Time of Evaluation Date of Evaluation: 10/29/17 Time of Evaluation: 18:00 - Subjective Subjective: Appears comfortable s/p IR embolization Objective - Vital Signs/Intake and Output Vital Signs (last 24 hours): Temp Pulse Resp BP Pulse Ox 98.1 F 67 24 179/69 H 98 10/29/17 16:02 10/30/17 00:28 10/30/17 00:28 10/30/17 00:28 10/30/17 00:28 Intake and Output: 10/29/17 10/30/17 18:59 06:59 Intake Total 630 770 Output Total 300 500 Balance 330 270 - Medications Medications: Current Medications Aspirin (Aspirin Chewable) 81 mg PO DAILY [facility] Last Admin: 10/28/17 13:47 Dose: Not Given Citalopram Hydrobromide (Celexa) 10 mg PO DAILY [facility] Last Admin: 10/29/17 09:26 Dose: Not Given Ferric Sodium Gluconate Complex (Ferrlecit) 125 mg IVPB DAILY [facility] Stop: 11/05/17 10:01 Last Admin: 10/29/17 09:40 Dose: 125 mg Furosemide (Lasix) 20 mg PO DAILY [facility] Last Admin: 10/29/17 09:26 Dose: Not Given Pantoprazole Sodium 80 mg/ (Sodium Chloride) 100 mls @ 10 mls/hr IVPB .Q10H [facility] PRN Reason: 8 MG/HR Last Admin: 10/29/17 21:32 Dose: Not Given Sodium Chloride (Sodium Chloride 0.9%) 1,000 mls @ 100 mls/hr IV .Q10H [facility] Last Admin: 10/29/17 17:21 Dose: 100 mls/hr Metoprolol Tartrate (Lopressor) 5 mg IVP Q6H PRN PRN Reason: for SBP >140mmHg Last Admin: 10/29/17 11:13 Dose: 5 mg Rosuvastatin Calcium (Crestor) 10 mg PO HS [facility] Last Admin: 10/29/17 21:39 Dose: Not Given Vitamin A (Vitamin A & D Oint Ud Foilpak) 1 ea TOP Q6H PRN PRN Reason: Dry skin Last Admin: 10/26/17 18:03 Dose: 1 ea - Labs Labs: 10/29/17 04:10 10/29/17 06:20 PT 12.3 SECONDS (9.7-12.2) H 10/28/17 03:42 INR 1.1 10/28/17 03:42 APTT 25 SECONDS (21-34) 10/25/17 09:00 - Head Exam Head Exam: ATRAUMATIC - Eye Exam Eye Exam: Normal appearance - ENT Exam ENT Exam: Mucous Membranes Dry - Respiratory Exam Respiratory Exam: NORMAL BREATHING PATTERN - Cardiovascular Exam Cardiovascular Exam: +S1, +S2 - GI/Abdominal Exam GI & Abdominal Exam: Normal Bowel Sounds Assessment and Plan (1) Anemia Assessment & Plan: GI bleeding EGD revealed gastritis and duodenal ulcer s/p IR embolization borderline iron stores on IV iron transfusion support PRN Status: Acute
[2017-10-30] MEDS: Sodium Chloride 0.9% 1,000 ML IV SCH (04:00)
[2017-10-30 06:09] LABS: BASO % 0.4 % (0.0-2.0); EOS % 0.2 % (0.0-4.0); HEMATOCRIT 21.8 % (35.0-51.0); LYMPH # 0.5 K/uL (1.0-4.3); LYMPH % 7.8 % (20.0-40.0); MEAN CELL VOLUME 91.3 fL (80.0-94.0); MEAN CORPUSCULAR HEMOGLOBIN 30.6 pg (27.0-31.0); MEAN CORPUSCULAR HGB CONC 33.5 g/dL (33.0-37.0); MEAN PLATELET VOLUME 8.9 fL (7.2-11.7); MONO # 0.6 K/uL (0.0-0.8); MONO % 8.6 % (0.0-10.0); PLATELET COUNT 191 K/uL (130-400); RED CELL DISTRIBUTION WIDTH 14.9 % (11.5-14.5); WHITE BLOOD COUNT 6.9 K/uL (4.8-10.8)
[2017-10-30] MEDS: Pantoprazole 80 MG in Sodium Chloride 0.9% 100 ML IVPB SCH ×3 (06:13→08:02)
[2017-10-30 06:29] LABS: ALB/GLOB RATIO 1.2 (1.0-2.1); ALKALINE PHOSPHATASE 50 U/L (38-126); ALT/SGPT 43 U/L (21-72); AST/SGOT 27 U/L (17-59); BILIRUBIN,TOTAL 0.5 mg/dL (0.2-1.3); BLOOD UREA NITROGEN 31 mg/dL (9-20); CALCIUM 7.8 mg/dl (8.6-10.4); CARBON DIOXIDE 28 mmol/L (22-30); CHLORIDE 114 mmol/L (98-107); GFR AFRICAN-AMERICAN > 60; GLUCOSE,RANDOM 132 mg/dL (75-110); MAGNESIUM 1.8 mg/dL (1.6-2.3); PHOSPHOROUS 3.5 mg/dL (2.5-4.5); POTASSIUM 3.8 mmol/L (3.6-5.2); SODIUM 146 mmol/L (132-148); TOTAL PROTEIN 4.8 g/dL (6.3-8.3)
[2017-10-30] MEDS: Metoprolol 1 mg/ml Inj IVP PRN (08:01)
[2017-10-30 08:17] LABS: NEUTROPHIL 87 % (50-75); TOTAL CELLS COUNTED 100
--- NOTE | 2017-10-30 08:49 | CP.PCM.PN ---
<Maximo Piedra - Last Filed: 10/30/17 10:04> Subjective - Date & Time of Evaluation Date of Evaluation: 10/30/17 Time of Evaluation: 07:25 - Subjective Subjective: Maximo Piedra D.O. PGY-2, GI Progress Note 77 year old male with a PMH of previous CVA with residual weakness and HTN with complicated hospital course with CVA and NSTEMI and then having melena, found to have a duodenal ulcer on EGD with nonbleeding visible vessel s/p epi injection s/p clipping and heater probe, as well as s/p embolization of gastroduondenal artery. Patient was seen and examined at bedside. Patient continues to be aphasic and so no information could be gathered from the patient , although he does follow simple commands with his right arm and squeezed when instructed. No acute overnight events. Objective - Vital Signs/Intake and Output Vital Signs (last 24 hours): Temp Pulse Resp BP Pulse Ox 98.1 F 56 L 24 177/63 H 99 10/29/17 16:02 10/30/17 08:05 10/30/17 08:05 10/30/17 08:05 10/30/17 08:05 Intake and Output: 10/30/17 10/30/17 06:59 18:59 Intake Total 1320 230 Output Total 750 Balance 570 230 - Medications Medications: Current Medications Aspirin (Aspirin Chewable) 81 mg PO DAILY [facility] Last Admin: 10/28/17 13:47 Dose: Not Given Citalopram Hydrobromide (Celexa) 10 mg PO DAILY [facility] Last Admin: 10/29/17 09:26 Dose: Not Given Ferric Sodium Gluconate Complex (Ferrlecit) 125 mg IVPB DAILY [facility] Stop: 11/05/17 10:01 Last Admin: 10/29/17 09:40 Dose: 125 mg Furosemide (Lasix) 20 mg PO DAILY [facility] Last Admin: 10/29/17 09:26 Dose: Not Given Pantoprazole Sodium 80 mg/ (Sodium Chloride) 100 mls @ 10 mls/hr IVPB .Q10H [facility] PRN Reason: 8 MG/HR Last Admin: 10/30/17 08:02 Dose: 10 mls/hr Sodium Chloride (Sodium Chloride 0.9%) 1,000 mls @ 100 mls/hr IV .Q10H [facility] Last Admin: 10/30/17 04:00 Dose: 100 mls/hr Metoprolol Tartrate (Lopressor) 5 mg IVP Q6H PRN PRN Reason: for SBP >140mmHg Last Admin: 10/30/17 08:01 Dose: 5 mg Rosuvastatin Calcium (Crestor) 10 mg PO HS [facility] Last Admin: 10/29/17 21:39 Dose: Not Given Vitamin A (Vitamin A & D Oint Ud Foilpak) 1 ea TOP Q6H PRN PRN Reason: Dry skin Last Admin: 10/26/17 18:03 Dose: 1 ea - Labs Labs: 10/30/17 06:04 10/30/17 06:04 PT 12.3 SECONDS (9.7-12.2) H 10/28/17 03:42 INR 1.1 10/28/17 03:42 APTT 25 SECONDS (21-34) 10/25/17 09:00 - Constitutional Appears: Non-toxic, No Acute Distress - Head Exam Head Exam: ATRAUMATIC, NORMOCEPHALIC - Eye Exam Eye Exam: EOMI, Normal appearance, PERRL - ENT Exam ENT Exam: Mucous Membranes Moist, Normal Exam Additional comments: NGT - Neck Exam Neck Exam: soft, supple - Respiratory Exam Respiratory Exam: Decreased Breath Sounds, NORMAL BREATHING PATTERN - Cardiovascular Exam Cardiovascular Exam: REGULAR RHYTHM, RRR - GI/Abdominal Exam GI & Abdominal Exam: Soft, Normal Bowel Sounds. absent: Distended, Guarding, Rigid, Tenderness - Extremities Exam Extremities Exam: Full ROM, Normal Inspection - Back Exam Back Exam: NORMAL INSPECTION - Neurological Exam Neurological Exam: arousable, follows simple commands, left sided dense hemiplegia, aphasic - Psychiatric Exam Psychiatric exam: Normal Affect - Skin Skin Exam: Dry, Intact, Normal Color, Warm Assessment and Plan - Assessment and Plan (Free Text) Assessment: 77 year old male with a PMH of previous CVA with residual weakness and HTN with complicated hospital course with CVA and NSTEMI and then having melena, found to have a duodenal ulcer on EGD with nonbleeding visible vessel s/p epi injection s/p clipping and heater probe, as well as s/p embolization of gastroduondenal artery Plan: Duodenal ulcer with nonbleeding visible vessel s/p epi injection s/p clipping and heater probe S/p embolization of gastroduondenal artery by IR yesterday Hgb stable No active GI bleeding HD stable Can begin tube feeds through NGT Will dc protonix gtt and start protonix NGT BID Anticoagulation recs per cardiology Discussed with fellow and attending physician Thank you for the pleasure of participating in the care of this interesting patient <Yoselyn Slade MD - Last Filed: 10/30/17 15:30> Objective - Vital Signs/Intake and Output Vital Signs (last 24 hours): Temp Pulse Resp BP Pulse Ox 98.9 F 78 24 163/62 H 100 10/30/17 12:05 10/30/17 15:00 10/30/17 15:00 10/30/17 14:41 10/30/17 15:00 Intake and Output: 10/30/17 10/30/17 06:59 18:59 Intake Total 1320 785 Output Total 750 Balance 570 785 - Medications Medications: Current Medications Aspirin (Aspirin Chewable) 81 mg PO DAILY [facility] Last Admin: 10/28/17 13:47 Dose: Not Given Citalopram Hydrobromide (Celexa) 10 mg PO DAILY [facility] Last Admin: 10/30/17 11:11 Dose: 10 mg Ferric Sodium Gluconate Complex (Ferrlecit) 125 mg IVPB DAILY [facility] Stop: 11/05/17 10:01 Last Admin: 10/30/17 09:38 Dose: 125 mg Furosemide (Lasix) 20 mg PO DAILY [facility] Last Admin: 10/30/17 11:11 Dose: 20 mg Hydralazine HCl (Apresoline) 10 mg IVP Q4H PRN PRN Reason: hypertension Metoprolol Tartrate (Lopressor) 5 mg IVP Q6H PRN PRN Reason: for SBP >140mmHg Last Admin: 10/30/17 08:01 Dose: 5 mg Pantoprazole Sodium (Protonix Ec Tab) 40 mg PO BID [facility] Last Admin: 10/30/17 11:11 Dose: 40 mg Rosuvastatin Calcium (Crestor) 10 mg PO HS [facility] Last Admin: 10/29/17 21:39 Dose: Not Given Vitamin A (Vitamin A & D Oint Ud Foilpak) 1 ea TOP Q6H PRN PRN Reason: Dry skin Last Admin: 10/26/17 18:03 Dose: 1 ea - Labs Labs: 10/30/17 06:04 12/08/17 06:04 PT 12.3 SECONDS (9.7-12.2) H 10/28/17 03:42 INR 1.1 10/28/17 03:42 APTT 25 SECONDS (21-34) 10/25/17 09:00 Attending/Attestation - Attestation I have personally seen and examined this patient.: Yes I have fully participated in the care of the patient.: Yes I have reviewed all pertinent clinical information, including history, physical exam and plan: Yes Notes (Text): 10/30/17 15:16 I have seen and examined patient with GI fellow. No acute events overnight, no reported abdominal pain, vomiting, or melena. In a nutshell this is a 77 yr old man with acute CVA and left sided weakness with NSTEMI with anemia s/p EGD yesterday showing duodenal ulcer with actively bleeding visible vessel s/p epinephrine and gold probe therapy. Endoclip placed for purposes of future localization. Elective IR embolization to prevent further bleeding. Can start tube feeds today. Further plan as per MICU, neurology and cardiology. Thank you for letting us participate in the care of your patient
[2017-10-30] MEDS: Ferric Sodium Gluconat Complex 62.5 mg/5 ml Vial IVPB SCH (09:38)
--- NOTE | 2017-10-30 09:44 | RAD ---
HISTORY: re-eval pulmonary edema COMPARISON: 10/25/2017 FINDINGS: LUNGS: There is interval development of diffuse haziness in the left lung and airspace disease in the left perihilar region. There is interval improved aeration in the right lung. PLEURA: No large right pleural effusion. Small left pleural effusion. No pneumothorax. CARDIOVASCULAR: Normal. OSSEOUS STRUCTURES: No significant abnormalities. VISUALIZED UPPER ABDOMEN: Normal. OTHER FINDINGS: The nasogastric tube terminates in the stomach. IMPRESSION: 1. Interval worsening of presumable pulmonary edema in the left mid lung. Small left pleural effusion. Airspace disease in the left perihilar region may represent atelectasis however superimposed pneumonia cannot be excluded. Interval improved aeration in the right lung.
--- NOTE | 2017-10-30 10:28 | CP.PCM.PN ---
Subjective - Date & Time of Evaluation Date of Evaluation: 10/30/17 Time of Evaluation: 10:26 - Subjective Subjective: Mr. Tilley was seen and examined at the bedside. He is more alert today in comparison from yesterday. He is responsive to both tactile and pain stimuli. He is able to nod or shake his head with response to questions. He is able to follow simple commands. He has a right hand mitten for patient safety. His blood pressure is elevated, medication was given. Objective - Vital Signs/Intake and Output Vital Signs (last 24 hours): Temp Pulse Resp BP Pulse Ox 99.4 F 66 26 H 158/74 H 100 10/30/17 08:05 10/30/17 09:00 10/30/17 09:00 10/30/17 08:28 10/30/17 09:00 Intake and Output: 10/30/17 10/30/17 06:59 18:59 Intake Total 1320 340 Output Total 750 Balance 570 340 - Medications Medications: Current Medications Aspirin (Aspirin Chewable) 81 mg PO DAILY [facility] Last Admin: 10/28/17 13:47 Dose: Not Given Citalopram Hydrobromide (Celexa) 10 mg PO DAILY [facility] Last Admin: 10/29/17 09:26 Dose: Not Given Ferric Sodium Gluconate Complex (Ferrlecit) 125 mg IVPB DAILY [facility] Stop: 11/05/17 10:01 Last Admin: 10/30/17 09:38 Dose: 125 mg Furosemide (Lasix) 20 mg PO DAILY [facility] Last Admin: 10/29/17 09:26 Dose: Not Given Sodium Chloride (Sodium Chloride 0.9%) 1,000 mls @ 100 mls/hr IV .Q10H [facility] Last Admin: 10/30/17 04:00 Dose: 100 mls/hr Metoprolol Tartrate (Lopressor) 5 mg IVP Q6H PRN PRN Reason: for SBP >140mmHg Last Admin: 10/30/17 08:01 Dose: 5 mg Pantoprazole Sodium (Protonix Ec Tab) 40 mg PO BID [facility] Rosuvastatin Calcium (Crestor) 10 mg PO HS [facility] Last Admin: 10/29/17 21:39 Dose: Not Given Vitamin A (Vitamin A & D Oint Ud Foilpak) 1 ea TOP Q6H PRN PRN Reason: Dry skin Last Admin: 10/26/17 18:03 Dose: 1 ea - Labs Labs: 10/30/17 06:04 10/30/17 06:04 PT 12.3 SECONDS (9.7-12.2) H 10/28/17 03:42 INR 1.1 10/28/17 03:42 APTT 25 SECONDS (21-34) 10/25/17 09:00 - Constitutional Appears: No Acute Distress - Head Exam Head Exam: ATRAUMATIC - Neurological Exam Neurological Exam: Awake Neuro motor strength exam: Left Upper Extremity: 0, Right Upper Extremity: 2/1, Left Lower Extremity: 0, Right Lower Extremity: 2/1 Additional comments: neurological improved from previous examination. Assessment and Plan (1) Acute CVA (cerebrovascular accident) Assessment & Plan: Case discussed with Dr. Brandon, continue all current medical, physical, and occupational therapies. Status: Acute
[2017-10-30] MEDS: Pantoprazole 40 mg EC Tab PO SCH ×2 (11:11→17:25)
--- NOTE | 2017-10-30 13:20 | SPECPROC ---
PROCEDURE: PROCEDURE: 1. Nonselective aortogram 2. Selective celiac artery angiogram 3. Selective gastroduodenal angiogram 4. Embolization of gastroduodenal artery with microcoils Medications: Patient sedated by anesthesiologist along with physiologic monitoring, 6 cubic centimeters 2 percent lidocaine HISTORY: Gastrointestinal bleed, duodenal ulcer TECHNIQUE: Following informed consent and procedure time-out, the right groin was marked. The patient placed supine on the interventional table and the right groin was prepped and draped in the usual sterile fashion. The right common femoral artery was accessed with ultrasound guidance with micropuncture technique. A guidewire is advanced under fluoroscopic guidance into the abdominal aorta. An ultrasound image documenting needle position within the artery was permanently archived. Through a 5 [place] sheath, a flush catheter was positioned abdominal aorta nonselective aortogram was performed. A Sos 2 catheter was used to select the celiac artery and selective celiac artery angiogram was performed. A Progreat micro catheter was advanced into the Sos catheter and the GASTRODUODENAL ARTERY was catheterized. A selective gastroduodenal artery angiogram was performed. Selective gastroduodenal artery angiogram did not show any active bleed. Given findings of endoscopy report, the gastroduodenal artery was then embolized. Multiple Interlock microcoils measuring 6 millimeter to 5 millimeters were deployed within the gastroduodenal artery under fluoroscopic guidance. Post embolization repeat left gastric arteriogram showed delayed flow within the gastroduodenal artery. The catheters and guidewires removed. The 5 [place] vascular sheath was then pulled and hemostasis achieved with 6 [place] Angio-Seal followed by manual compression. There were no immediate complications. A dressing applied. IMPRESSION: Selective gastroduodenal artery angiogram did not show any active bleed. The gastroduodenal artery was embolized with microcoils until hemostasis was achieved.
--- NOTE | 2017-10-30 18:10 | CP.PCM.PN ---
Subjective - Date & Time of Evaluation Date of Evaluation: 10/30/17 Time of Evaluation: 09:05 - Subjective Subjective: Patient seen and evaluated Aphasic Stable hemodynamics Physical Examination - Constitutional Appears: Non-toxic, No Acute Distress - Head Exam Head Exam: ATRAUMATIC, NORMOCEPHALIC - Eye Exam Eye Exam: EOMI, Normal appearance, PERRL - ENT Exam ENT Exam: Mucous Membranes Moist, Normal Exam Additional comments: NGT - Neck Exam Neck Exam: soft, supple - Respiratory Exam Respiratory Exam: Decreased Breath Sounds, NORMAL BREATHING PATTERN - Cardiovascular Exam Cardiovascular Exam: REGULAR RHYTHM, RRR - GI/Abdominal Exam GI & Abdominal Exam: Soft, Normal Bowel Sounds. absent: Distended, Guarding, Rigid, Tenderness - Extremities Exam Extremities Exam: Full ROM, Normal Inspection - Back Exam Back Exam: NORMAL INSPECTION - Neurological Exam Neurological Exam: arousable, follows simple commands, left sided dense hemiplegia, aphasic - Psychiatric Exam Psychiatric exam: Normal Affect - Skin Skin Exam: Dry, Intact, Normal Color, Warm Objective - Vital Signs/Intake and Output Vital Signs (last 24 hours): Temp Pulse Resp BP Pulse Ox 99.4 F 80 34 H 179/67 H 99 10/30/17 16:00 10/30/17 17:28 10/30/17 17:28 10/30/17 17:28 10/30/17 17:28 Intake and Output: 10/30/17 10/30/17 06:59 18:59 Intake Total 1320 915 Output Total 750 600 Balance 570 315 - Medications Medications: Current Medications Aspirin (Aspirin Chewable) 81 mg PO DAILY [facility] Last Admin: 10/28/17 13:47 Dose: Not Given Citalopram Hydrobromide (Celexa) 10 mg PO DAILY [facility] Last Admin: 10/30/17 11:11 Dose: 10 mg Ferric Sodium Gluconate Complex (Ferrlecit) 125 mg IVPB DAILY [facility] Stop: 11/05/17 10:01 Last Admin: 10/30/17 09:38 Dose: 125 mg Furosemide (Lasix) 20 mg PO DAILY [facility] Last Admin: 10/30/17 11:11 Dose: 20 mg Hydralazine HCl (Apresoline) 10 mg IVP Q4H PRN PRN Reason: hypertension Last Admin: 10/30/17 17:25 Dose: 10 mg Metoprolol Tartrate (Lopressor) 5 mg IVP Q6H PRN PRN Reason: for SBP >140mmHg Last Admin: 10/30/17 08:01 Dose: 5 mg Pantoprazole Sodium (Protonix Ec Tab) 40 mg PO BID [facility] Last Admin: 10/30/17 17:25 Dose: 40 mg Rosuvastatin Calcium (Crestor) 10 mg PO HS [facility] Last Admin: 10/29/17 21:39 Dose: Not Given Vitamin A (Vitamin A & D Oint Ud Foilpak) 1 ea TOP Q6H PRN PRN Reason: Dry skin Last Admin: 10/26/17 18:03 Dose: 1 ea - Labs Labs: 10/30/17 06:04 10/30/17 06:04 PT 12.3 SECONDS (9.7-12.2) H 10/28/17 03:42 INR 1.1 10/28/17 03:42 APTT 25 SECONDS (21-34) 10/25/17 09:00 Assessment and Plan - Assessment and Plan (Free Text) Assessment: CVA Ischemic Non ST elevation [place] GIB Anticogaulation held Will sart after ok from GI
--- NOTE | 2017-10-30 18:59 | CP.CCUPN ---
CCU Subjective - Physician Review Subjective (Free Text): PGY1 ICU Progress Note for Dr. Ananth Buitrago Patient seen and examined at bedside this morning. Patient appears to be resting comfortably in bed in no acute distress. Patient is non-verbal and not moving the left side of his body. He is able to move the right side of his body. Patient is able to shake his head yes and no to simple questions. No acute events overnight. CCU Objective - Vital Signs / Intake & Output Vital Signs (Last 4 hours): Vital Signs Temp Pulse Resp BP Pulse Ox 10/30/17 17:28 80 34 H 179/67 H 99 10/30/17 17:00 79 26 H 100 10/30/17 16:28 79 28 H 174/65 H 99 10/30/17 16:00 99.4 F 87 29 H 100 10/30/17 15:50 84 26 H 174/69 H 100 10/30/17 15:28 82 28 H 183/72 H 99 10/30/17 15:00 78 24 100 Intake and Output (Last 8hrs): Intake & Output 10/30/17 10/30/17 10/30/17 06:59 14:59 22:59 Intake Total 880 760 155 Output Total 450 600 Balance 430 760 -445 Weight 162 lb 8 oz Intake: Intake, IV Amount 880 560 Left Forearm 10 Right Medial Port Wrist 800 400 Right Wrist 80 150 Oral 0 Tube Feeding 100 105 Other 100 50 Output: Urine 450 600 Condom 450 600 Other: # Bowel Movements 0 - Physical Exam Head: Positive for: Atraumatic, Normocephalic Pupils: Positive for: PERRL Extroacular Muscles: Positive for: EOMI Mouth: Positive for: Moist Mucous Membranes Respiratory/Chest: Positive for: Clear to Auscultation, Good Air Exchange. Negative for: Respiratory Distress, Accessory Muscle Use Cardiovascular: Positive for: Regular Rate and Rhythm Abdomen: Positive for: Normal Bowel Sounds. Negative for: Tenderness, Distention Upper Extremity: Positive for: Other (left sided hemiparesis) Lower Extremity: Positive for: Neurovascularly Intact, Other (left sided hemiparesis). Negative for: CALF TENDERNESS Neurological: Positive for: Other (Left sided hemiparesis ). Negative for: Speech Normal (aphasic) Skin: Positive for: Warm, Dry Psychiatric: Positive for: Alert, Lethargic (easily arousable. ) - Medications Active Medications: Active Medications Generic Name Dose Route Start Last Admin Trade Name Freq PRN Reason Stop Dose Admin Aspirin 81 mg 10/26/17 10:00 10/28/17 13:47 Aspirin Chewable PO Not Given DAILY GENNA Citalopram Hydrobromide 10 mg 10/27/17 10:00 10/30/17 11:11 Celexa PO 10 mg DAILY GENNA Administration Ferric Sodium Gluconate Complex 125 mg 10/28/17 10:00 10/30/17 09:38 Ferrlecit IVPB 11/05/17 10:01 125 mg DAILY GENNA Administration Furosemide 20 mg 10/27/17 10:00 10/30/17 11:11 Lasix PO 20 mg DAILY GENNA Administration Heparin Sodium (Porcine) 5,000 units 10/30/17 22:00 Heparin SC Q8 GENNA Hydralazine HCl 10 mg 10/30/17 10:52 10/30/17 17:25 Apresoline IVP 10 mg Q4H PRN Administration hypertension Metoprolol Tartrate 5 mg 10/28/17 17:00 10/30/17 08:01 Lopressor IVP 5 mg Q6H PRN Administration for SBP >140mmHg Pantoprazole Sodium 40 mg 10/30/17 10:15 10/30/17 17:25 Protonix Ec Tab PO 40 mg BID GENNA Administration Rosuvastatin Calcium 10 mg 10/26/17 22:00 10/29/17 21:39 Crestor PO Not Given HS GENNA Vitamin A 1 ea 10/26/17 17:56 10/26/17 18:03 Vitamin A & D Oint Ud Foilpak TOP 1 ea Q6H PRN Administration Dry skin - Patient Studies Lab Studies: Lab Studies 10/30/17 10/30/17 Range/Units 06:04 06:04 WBC 6.9 (4.8-10.8) K/uL RBC 2.38 L (4.40-5.90) Mil/uL Hgb 7.3 L (12.0-18.0) g/dL Hct 21.8 L (35.0-51.0) % MCV 91.3 (80.0-94.0) fL MCH 30.6 (27.0-31.0) pg MCHC 33.5 (33.0-37.0) g/dL RDW 14.9 H (11.5-14.5) % Plt Count 191 (130-400) K/uL MPV 8.9 (7.2-11.7) fL Neut % (Auto) 83.0 H (50.0-75.0) % Lymph % (Auto) 7.8 L (20.0-40.0) % [place] % (Auto) 8.6 (0.0-10.0) % Eos % (Auto) 0.2 (0.0-4.0) % Baso % (Auto) 0.4 (0.0-2.0) % Neut # 5.7 (1.8-7.0) K/uL Lymph # 0.5 L (1.0-4.3) K/uL [place] # 0.6 (0.0-0.8) K/uL Eos # 0.0 (0.0-0.7) K/uL Baso # 0.0 (0.0-0.2) K/uL Neutrophils % (Manual) 87 H (50-75) % Band Neutrophils % 2 (0-2) % Lymphocytes % (Manual) 7 L (20-40) % Monocytes % (Manual) 4 (0-10) % Platelet Estimate Normal (NORMAL) Polychromasia Slight Hypochromasia (manual) Slight Sodium 146 (132-148) mmol/L Potassium 3.8 (3.6-5.2) mmol/L Chloride 114 H (98-107) mmol/L Carbon Dioxide 28 (22-30) mmol/L Anion Gap 8 L (10-20) BUN 31 H (9-20) mg/dL Creatinine 1.1 (0.8-1.5) mg/dL Est GFR ( Amer) > 60 Est GFR (Non-Af Amer) > 60 Random Glucose 132 H (75-110) mg/dL Calcium 7.8 L (8.6-10.4) mg/dl Phosphorus 3.5 (2.5-4.5) mg/dL Magnesium 1.8 (1.6-2.3) mg/dL Total Bilirubin 0.5 (0.2-1.3) mg/dL AST 27 (17-59) U/L ALT 43 (21-72) U/L Alkaline Phosphatase 50 (38-126) U/L Total Protein 4.8 L (6.3-8.3) g/dL Albumin 2.6 L (3.5-5.0) g/dL Globulin 2.2 (2.2-3.9) gm/dL Albumin/Globulin Ratio 1.2 (1.0-2.1) Laboratory Results - last 24 hr 10/30/17 10/30/17 06:04 06:04 WBC 6.9 RBC 2.38 L Hgb 7.3 L Hct 21.8 L MCV 91.3 MCH 30.6 MCHC 33.5 RDW 14.9 H Plt Count 191 MPV 8.9 Neut % (Auto) 83.0 H Lymph % (Auto) 7.8 L [place] % (Auto) 8.6 Eos % (Auto) 0.2 Baso % (Auto) 0.4 Neut # 5.7 Lymph # 0.5 L [place] # 0.6 Eos # 0.0 Baso # 0.0 Neutrophils % (Manual) 87 H Band Neutrophils % 2 Lymphocytes % (Manual) 7 L Monocytes % (Manual) 4 Platelet Estimate Normal Polychromasia Slight Hypochromasia (manual) Slight Sodium 146 Potassium 3.8 Chloride 114 H Carbon Dioxide 28 Anion Gap 8 L BUN 31 H Creatinine 1.1 Est GFR ( Amer) > 60 Est GFR (Non-Af Amer) > 60 Random Glucose 132 H Calcium 7.8 L Phosphorus 3.5 Magnesium 1.8 Total Bilirubin 0.5 AST 27 ALT 43 Alkaline Phosphatase 50 Total Protein 4.8 L Albumin 2.6 L Globulin 2.2 Albumin/Globulin Ratio 1.2 Fingerstick Blood Sugar Results: 111 Review of Systems - Review of Systems Systems not reviewed;Unavailable: Acuity of Condition (non-verbal) Critical Care Progress Note - Nutrition Nutrition: Nutrition Category Date Time Status NPO Diet [DIET] Diets 10/28/17 Breakfast Active Assessment/Plan - Assessment and Plan (Free Text) Assessment: 77 year old male with a past medical history of multiple CVA (residual sided residual weakness) presenting with new onset stroke symptoms (no tPA) and NSTEM Plan: Neuro: Dr. Brandon consulted, help appreciated More awake and shaking head yes and no to simple questions in comparison to yesterday. Head CTA 10/27 - Interval development of complete occlusion of the right M1 segment approximately 10 mm distal to its origin. Asymmetric attenuation of the right M2 branches. No evidence of hemodynamically significant stenosis in the internal carotid arteries. Patent bilateral vertebral arteries. The right vertebral artery is dominant. Repeat head CT 10/27 - Suspect acute infarction within RIGHT parietal region. Recommend MRI. Chronic ischemic white matter changes. Sinus disease. Chronic left maxillary sinusitis. Repeat head CT 10/28 - Expansion of the infarcted territory to involve not only a small portion the right parietal lobe but now a large segment of the right MCA distribution with limited subfalcine herniation of approximately 3-4 mm to the left, effacement of the majority the right cerebral sulci and partial effacement of the right lateral ventricle. No intracranial hemorrhage is appreciated and there is no hydrocephalus at this time. Patient still not speaking speaking Left sided hemiparesis - able to follow simple commands with right hand neuro checks f/u neuro recs - recommend anticoag. - currently on hold due to GI bleed. Will plan to restart anticoagulation tomorrow 10/31. CV: Dr. Cunningham consulted, help appreciated NSTEMI Hypertension Trop 25.3/39.3/31.4 Will plan for cardiac cath once stable Aspirin 81mg PO daily Crestor 10mg PO HS Lasix 20 mg PO daily Metoprolol 5 mg IVP Q6H PRN (give to keep heart rate in 60-70s if BP elevated) Started on Hydralazine 10 mg IV q4h PRN f/u cardio recs GI: Dr. Torres consulted, help appreciated + stool occult blood - melanonic stool f/u GI recs - EGD showed a bleeding gastric ulcer in the fundus. There was a superficial vessel within the ulcer. Dr. Torres was unable to clip the vessel directly in the ulcer but a clip was placed on the superficial vessel lateral to the ulcer due to difficult positioning. The vessel was cauterized. - Dr. Stafford (Interventional Radiology) consulted, for embolization of bleeding vessel. - Started on Tube Feedings Jevity 1.5 - protonix drip - discontinued; switched to protonix 40mg PO BID - Patient had sucessful embolization with Dr. Stafford on 10/29/17 Will plan to restart anticoagulation tomorrow Hem: Hgb 7.3 from 7.4 Continue to monitor Prophylactic Care: SCDs Anticoagulation on hold due to GI bleed protonix 40mg PO BID Resident Dr. Blanton spoke with the patient's daughter, Florinda Tilley, on and she stated that she is ok with the patient being intubated, but does not want him to have CPR performed. She stated that she has spoken with multiple physicians about this and wishes not to be asked again. Patient made DNR. Case discussed with Dr. Ananth Chery Harvinder PGY1
--- NOTE | 2017-10-30 19:40 | CP.PCM.PN ---
Subjective - Date & Time of Evaluation Date of Evaluation: 10/30/17 Time of Evaluation: 14:00 - Subjective Subjective: clinically same Objective - Vital Signs/Intake and Output Vital Signs (last 24 hours): Temp Pulse Resp BP Pulse Ox 99.4 F 88 29 H 168/60 H 99 10/30/17 16:00 10/30/17 19:31 10/30/17 19:31 10/30/17 19:31 10/30/17 19:31 Intake and Output: 10/30/17 10/31/17 18:59 06:59 Intake Total 915 30 Output Total 600 Balance 315 30 - Medications Medications: Current Medications Aspirin (Aspirin Chewable) 81 mg PO DAILY [facility] Last Admin: 10/28/17 13:47 Dose: Not Given Citalopram Hydrobromide (Celexa) 10 mg PO DAILY [facility] Last Admin: 10/30/17 11:11 Dose: 10 mg Ferric Sodium Gluconate Complex (Ferrlecit) 125 mg IVPB DAILY [facility] Stop: 11/05/17 10:01 Last Admin: 10/30/17 09:38 Dose: 125 mg Furosemide (Lasix) 20 mg PO DAILY [facility] Last Admin: 10/30/17 11:11 Dose: 20 mg Heparin Sodium (Porcine) (Heparin) 5,000 units SC Q8 [facility] Hydralazine HCl (Apresoline) 10 mg IVP Q4H PRN PRN Reason: hypertension Last Admin: 10/30/17 17:25 Dose: 10 mg Metoprolol Tartrate (Lopressor) 5 mg IVP Q6H PRN PRN Reason: for SBP >140mmHg Last Admin: 10/30/17 08:01 Dose: 5 mg Pantoprazole Sodium (Protonix Ec Tab) 40 mg PO BID [facility] Last Admin: 10/30/17 17:25 Dose: 40 mg Rosuvastatin Calcium (Crestor) 10 mg PO HS [facility] Last Admin: 10/29/17 21:39 Dose: Not Given Vitamin A (Vitamin A & D Oint Ud Foilpak) 1 ea TOP Q6H PRN PRN Reason: Dry skin Last Admin: 10/26/17 18:03 Dose: 1 ea - Labs Labs: 10/30/17 06:04 10/30/17 06:04 PT 12.3 SECONDS (9.7-12.2) H 10/28/17 03:42 INR 1.1 10/28/17 03:42 APTT 25 SECONDS (21-34) 10/25/17 09:00 - Constitutional Appears: Well - Head Exam Head Exam: ATRAUMATIC, NORMAL INSPECTION, NORMOCEPHALIC - Eye Exam Eye Exam: EOMI, Normal appearance, PERRL - ENT Exam ENT Exam: Mucous Membranes Moist, Normal Exam - Neck Exam Neck Exam: Full ROM, Normal Inspection. absent: Lymphadenopathy - Respiratory Exam Respiratory Exam: Decreased Breath Sounds - Cardiovascular Exam Cardiovascular Exam: REGULAR RHYTHM, +S1, +S2 - GI/Abdominal Exam GI & Abdominal Exam: Soft, Diminished Bowel Sounds - Rectal Exam Rectal Exam: Deferred
--- NOTE | 2017-10-30 22:33 | CP.PCM.PN ---
Subjective - Date & Time of Evaluation Date of Evaluation: 10/30/17 Time of Evaluation: 18:00 - Subjective Subjective: Appears comfortable Objective - Vital Signs/Intake and Output Vital Signs (last 24 hours): Temp Pulse Resp BP Pulse Ox 98.1 F 85 25 H 156/63 H 100 10/30/17 20:00 10/30/17 21:01 10/30/17 21:01 10/30/17 21:01 10/30/17 21:01 Intake and Output: 10/30/17 10/31/17 18:59 06:59 Intake Total 915 195 Output Total 600 Balance 315 195 - Medications Medications: Current Medications Aspirin (Aspirin Chewable) 81 mg PO DAILY [facility] Last Admin: 10/28/17 13:47 Dose: Not Given Citalopram Hydrobromide (Celexa) 10 mg PO DAILY [facility] Last Admin: 10/30/17 11:11 Dose: 10 mg Ferric Sodium Gluconate Complex (Ferrlecit) 125 mg IVPB DAILY [facility] Stop: 11/05/17 10:01 Last Admin: 10/30/17 09:38 Dose: 125 mg Furosemide (Lasix) 20 mg PO DAILY [facility] Last Admin: 10/30/17 11:11 Dose: 20 mg Heparin Sodium (Porcine) (Heparin) 5,000 units SC Q8 [facility] Last Admin: 10/30/17 21:30 Dose: 5,000 units Hydralazine HCl (Apresoline) 10 mg IVP Q4H PRN PRN Reason: hypertension Last Admin: 10/30/17 17:25 Dose: 10 mg Metoprolol Tartrate (Lopressor) 5 mg IVP Q6H PRN PRN Reason: for SBP >140mmHg Last Admin: 10/30/17 08:01 Dose: 5 mg Pantoprazole Sodium (Protonix Ec Tab) 40 mg PO BID [facility] Last Admin: 10/30/17 17:25 Dose: 40 mg Rosuvastatin Calcium (Crestor) 10 mg PO HS [facility] Last Admin: 10/30/17 21:30 Dose: 10 mg Vitamin A (Vitamin A & D Oint Ud Foilpak) 1 ea TOP Q6H PRN PRN Reason: Dry skin Last Admin: 10/26/17 18:03 Dose: 1 ea - Labs Labs: 10/30/17 06:04 10/30/17 06:04 PT 12.3 SECONDS (9.7-12.2) H 10/28/17 03:42 INR 1.1 10/28/17 03:42 APTT 25 SECONDS (21-34) 10/25/17 09:00 - Head Exam Head Exam: ATRAUMATIC - Eye Exam Eye Exam: Normal appearance - ENT Exam ENT Exam: Mucous Membranes Dry - Respiratory Exam Respiratory Exam: NORMAL BREATHING PATTERN - Cardiovascular Exam Cardiovascular Exam: +S1, +S2 - GI/Abdominal Exam GI & Abdominal Exam: Normal Bowel Sounds Assessment and Plan (1) Anemia Assessment & Plan: GI bleeding s/p EGD which revealed gastritis and duodenal ulcer s/p IR embolization borderline iron stores on IV iron transfusion support PRN Status: Acute
[2017-10-31 06:56] LABS: BASO % 0.5 % (0.0-2.0); EOS % 0.1 % (0.0-4.0); HEMATOCRIT 23.6 % (35.0-51.0); LYMPH # 0.6 K/uL (1.0-4.3); LYMPH % 6.5 % (20.0-40.0); MEAN CELL VOLUME 92.3 fL (80.0-94.0); MEAN CORPUSCULAR HEMOGLOBIN 31.1 pg (27.0-31.0); MEAN CORPUSCULAR HGB CONC 33.8 g/dL (33.0-37.0); MEAN PLATELET VOLUME 9.2 fL (7.2-11.7); MONO # 0.8 K/uL (0.0-0.8); MONO % 9.4 % (0.0-10.0); PLATELET COUNT 236 K/uL (130-400); RED CELL DISTRIBUTION WIDTH 15.8 % (11.5-14.5); WHITE BLOOD COUNT 8.7 K/uL (4.8-10.8)
[2017-10-31 07:09] LABS: ALB/GLOB RATIO 1.2 (1.0-2.1); ALKALINE PHOSPHATASE 64 U/L (38-126); ALT/SGPT 37 U/L (21-72); AST/SGOT 36 U/L (17-59); BILIRUBIN,TOTAL 0.4 mg/dL (0.2-1.3); BLOOD UREA NITROGEN 36 mg/dL (9-20); CARBON DIOXIDE 28 mmol/L (22-30); CHLORIDE 114 mmol/L (98-107); GFR AFRICAN-AMERICAN > 60; GLUCOSE,RANDOM 250 mg/dL (75-110); PHOSPHOROUS 2.9 mg/dL (2.5-4.5); POTASSIUM 3.2 mmol/L (3.6-5.2); SODIUM 147 mmol/L (132-148); TOTAL PROTEIN 5.1 g/dL (6.3-8.3)
[2017-10-31] MEDS: Ferric Sodium Gluconat Complex 62.5 mg/5 ml Vial IVPB SCH (09:10)
[2017-10-31] MEDS: Metoprolol 1 mg/ml Inj IVP PRN (09:33)
--- NOTE | 2017-10-31 09:43 | CP.CCUPN ---
<Vik Blanton - Last Filed: 10/31/17 11:53> CCU Subjective - Physician Review Subjective (Free Text): PGY1 ICU Progress Note for Dr. Ananth Buitrago Patient seen and examined at bedside this morning. No acute events overnight. Patient is resting comfortably in his bed. Patient is non-verbal due to CVA. ROS unobtainable. CCU Objective - Vital Signs / Intake & Output Vital Signs (Last 4 hours): Vital Signs Pulse Resp BP Pulse Ox 10/31/17 09:10 188/60 H 10/31/17 06:48 82 25 H 175/65 H 100 10/31/17 06:37 82 25 H 185/65 H 98 10/31/17 06:08 90 24 100 10/31/17 06:01 188/70 H 10/31/17 06:00 77 26 H 100 10/31/17 05:54 77 26 H 177/69 H 100 Intake and Output (Last 8hrs): Intake & Output 10/30/17 10/31/17 10/31/17 22:59 06:59 14:59 Intake Total 390 340 Output Total 600 400 Balance -210 -60 Intake: Oral 90 Tube Feeding 250 340 Other 50 Output: Urine 600 400 Condom 600 400 Other: # Bowel Movements 0 - Physical Exam Head: Positive for: Atraumatic, Normocephalic Pupils: Positive for: PERRL Extroacular Muscles: Positive for: EOMI Mouth: Positive for: Moist Mucous Membranes Respiratory/Chest: Positive for: Clear to Auscultation, Good Air Exchange. Negative for: Respiratory Distress, Accessory Muscle Use Cardiovascular: Positive for: Regular Rate and Rhythm Abdomen: Positive for: Normal Bowel Sounds. Negative for: Tenderness, Distention Upper Extremity: Positive for: Other (left sided hemiparesis) Lower Extremity: Positive for: Neurovascularly Intact, Other (left sided hemiparesis). Negative for: CALF TENDERNESS Neurological: Positive for: Other (Left sided hemiparesis ). Negative for: Speech Normal (aphasic) Skin: Positive for: Warm, Dry Psychiatric: Positive for: Alert, Lethargic (easily arousable. ) - Medications Active Medications: Active Medications Generic Name Dose Route Start Last Admin Trade Name Freq PRN Reason Stop Dose Admin Aspirin 81 mg 10/26/17 10:00 10/31/17 09:10 Aspirin Chewable PO 81 mg DAILY [facility] Administration Citalopram Hydrobromide 10 mg 10/27/17 10:00 10/31/17 09:10 Celexa PO 10 mg DAILY [facility] Administration Ferric Sodium Gluconate Complex 125 mg 10/28/17 10:00 10/31/17 09:10 Ferrlecit IVPB 11/05/17 10:01 125 mg DAILY [facility] Administration Furosemide 20 mg 10/27/17 10:00 10/31/17 09:10 Lasix PO 20 mg DAILY [facility] Administration Heparin Sodium (Porcine) 5,000 units 10/30/17 22:00 10/31/17 05:40 Heparin SC 5,000 units Q8 [facility] Administration Hydralazine HCl 10 mg 10/30/17 10:52 10/31/17 06:44 Apresoline IVP 10 mg Q4H PRN Administration hypertension Metoprolol Tartrate 5 mg 10/28/17 17:00 10/31/17 09:33 Lopressor IVP 5 mg Q6H PRN Administration for SBP >140mmHg Pantoprazole Sodium 40 mg 10/30/17 10:15 10/30/17 17:25 Protonix Ec Tab PO 40 mg BID [facility] Administration Rosuvastatin Calcium 10 mg 10/26/17 22:00 10/30/17 21:30 Crestor PO 10 mg HS [facility] Administration Vitamin A 1 ea 10/26/17 17:56 10/26/17 18:03 Vitamin A & D Oint Ud Foilpak TOP 1 ea Q6H PRN Administration Dry skin - Patient Studies Lab Studies: Lab Studies 10/31/17 10/31/17 Range/Units 06:48 06:48 WBC 8.7 (4.8-10.8) K/uL RBC 2.56 L (4.40-5.90) Mil/uL Hgb 8.0 L (12.0-18.0) g/dL Hct 23.6 L (35.0-51.0) % MCV 92.3 (80.0-94.0) fL MCH 31.1 H (27.0-31.0) pg MCHC 33.8 (33.0-37.0) g/dL RDW 15.8 H (11.5-14.5) % Plt Count 236 (130-400) K/uL MPV 9.2 (7.2-11.7) fL Neut % (Auto) 83.5 H (50.0-75.0) % Lymph % (Auto) 6.5 L (20.0-40.0) % Emanuel % (Auto) 9.4 (0.0-10.0) % Eos % (Auto) 0.1 (0.0-4.0) % Baso % (Auto) 0.5 (0.0-2.0) % Neut # 7.3 H (1.8-7.0) K/uL Lymph # 0.6 L (1.0-4.3) K/uL Emanuel # 0.8 (0.0-0.8) K/uL Eos # 0.0 (0.0-0.7) K/uL Baso # 0.0 (0.0-0.2) K/uL Sodium 147 (132-148) mmol/L Potassium 3.2 L (3.6-5.2) mmol/L Chloride 114 H (98-107) mmol/L Carbon Dioxide 28 (22-30) mmol/L Anion Gap 8 L (10-20) BUN 36 H (9-20) mg/dL Creatinine 1.2 (0.8-1.5) mg/dL Est GFR ( Amer) > 60 Est GFR (Non-Af Amer) 59 Random Glucose 250 H (75-110) mg/dL Calcium 8.0 L (8.6-10.4) mg/dl Phosphorus 2.9 (2.5-4.5) mg/dL Magnesium 2.0 (1.6-2.3) mg/dL Total Bilirubin 0.4 (0.2-1.3) mg/dL AST 36 (17-59) U/L ALT 37 (21-72) U/L Alkaline Phosphatase 64 (38-126) U/L Total Protein 5.1 L (6.3-8.3) g/dL Albumin 2.8 L (3.5-5.0) g/dL Globulin 2.3 (2.2-3.9) gm/dL Albumin/Globulin Ratio 1.2 (1.0-2.1) Laboratory Results - last 24 hr 10/31/17 10/31/17 06:48 06:48 WBC 8.7 RBC 2.56 L Hgb 8.0 L Hct 23.6 L MCV 92.3 MCH 31.1 H MCHC 33.8 RDW 15.8 H Plt Count 236 MPV 9.2 Neut % (Auto) 83.5 H Lymph % (Auto) 6.5 L Emanuel % (Auto) 9.4 Eos % (Auto) 0.1 Baso % (Auto) 0.5 Neut # 7.3 H Lymph # 0.6 L Emanuel # 0.8 Eos # 0.0 Baso # 0.0 Sodium 147 Potassium 3.2 L Chloride 114 H Carbon Dioxide 28 Anion Gap 8 L BUN 36 H Creatinine 1.2 Est GFR ( Amer) > 60 Est GFR (Non-Af Amer) 59 Random Glucose 250 H Calcium 8.0 L Phosphorus 2.9 Magnesium 2.0 Total Bilirubin 0.4 AST 36 ALT 37 Alkaline Phosphatase 64 Total Protein 5.1 L Albumin 2.8 L Globulin 2.3 Albumin/Globulin Ratio 1.2 Fingerstick Blood Sugar Results: 111 Review of Systems - Review of Systems Systems not reviewed;Unavailable: Other (non-verbal 2/2 to CVA) Critical Care Progress Note - Nutrition Nutrition: Nutrition Category Date Time Status NPO Diet [DIET] Diets 10/28/17 Breakfast Active Assessment/Plan - Assessment and Plan (Free Text) Assessment: 77 year old male with a past medical history of multiple CVA (residual sided residual weakness) presenting with new onset stroke symptoms (no tPA) and NSTEM Plan: Neuro: Dr. Brandon consulted, help appreciated More awake and shaking head yes and no to simple questions in comparison to yesterday. Head CTA 10/27 - Interval development of complete occlusion of the right M1 segment approximately 10 mm distal to its origin. Asymmetric attenuation of the right M2 branches. No evidence of hemodynamically significant stenosis in the internal carotid arteries. Patent bilateral vertebral arteries. The right vertebral artery is dominant. Repeat head CT 10/27 - Suspect acute infarction within RIGHT parietal region. Recommend MRI. Chronic ischemic white matter changes. Sinus disease. Chronic left maxillary sinusitis. Repeat head CT 10/28 - Expansion of the infarcted territory to involve not only a small portion the right parietal lobe but now a large segment of the right MCA distribution with limited subfalcine herniation of approximately 3-4 mm to the left, effacement of the majority the right cerebral sulci and partial effacement of the right lateral ventricle. No intracranial hemorrhage is appreciated and there is no hydrocephalus at this time. Patient still not speaking speaking Left sided hemiparesis - able to follow simple commands with right hand neuro checks f/u neuro recs - recommend anticoag. - currently on hold due to GI bleed. CV: Dr. Cunningham consulted, help appreciated NSTEMI Hypertension Trop 25.3/39.3/31.4 Will plan for cardiac cath once stable Aspirin 81mg PO daily Crestor 10mg PO HS Lasix 20 mg PO daily Metoprolol 5 mg IVP Q6H PRN (give to keep heart rate in 60-70s if BP elevated) Hydralazine 10 mg IV q4h PRN f/u cardio recs GI: Dr. Torres consulted, help appreciated + stool occult blood - melanonic stool f/u GI recs - EGD showed a bleeding gastric ulcer in the fundus. There was a superficial vessel within the ulcer. Dr. Torres was unable to clip the vessel directly in the ulcer but a clip was placed on the superficial vessel lateral to the ulcer due to difficult positioning. The vessel was cauterized. - Dr. Stafford (Interventional Radiology) consulted, for embolization of bleeding vessel. - Started on Tube Feedings Jevity 1.5 - protonix 40mg PO BID - Patient had sucessful embolization with Dr. Stafford on 10/29/17 Hem: Hgb 8.0 from 7.3 Continue to monitor Prophylactic Care: SCDs Anticoagulation on hold due to GI bleed protonix 40mg PO BID Resident Dr. Blanton spoke with the patient's daughter, Florinda Tilley, on and she stated that she is ok with the patient being intubated, but does not want him to have CPR performed. She stated that she has spoken with multiple physicians about this and wishes not to be asked again. Patient made DNR. Case discussed with Dr. Ananth Blanton PGY1 <Joi Buitrago - Last Filed: 10/31/17 16:54> CCU Objective - Vital Signs / Intake & Output Vital Signs (Last 4 hours): Vital Signs Temp Pulse Resp BP Pulse Ox 10/31/17 13:07 73 27 H 123/60 99 10/31/17 12:06 79 28 H 157/61 H 99 10/31/17 12:00 98.0 F 100 10/31/17 11:07 74 20 142/46 L 99 10/31/17 10:01 89 32 H 139/50 L 94 L 10/31/17 09:58 83 29 H 137/46 L 93 L Intake and Output (Last 8hrs): Intake & Output 10/30/17 10/31/17 10/31/17 22:59 06:59 14:59 Intake Total 390 340 315 Output Total 600 400 Balance -210 -60 315 Weight 160 lb Intake: Oral 90 Tube Feeding 250 340 315 Other 50 Output: Urine 600 400 Condom 600 400 Other: # Bowel Movements 0 - Medications Active Medications: Active Medications Generic Name Dose Route Start Last Admin Trade Name Freq PRN Reason Stop Dose Admin Aspirin 81 mg 10/26/17 10:00 10/31/17 09:10 Aspirin Chewable PO 81 mg DAILY [facility] Administration Citalopram Hydrobromide 10 mg 10/27/17 10:00 10/31/17 09:10 Celexa PO 10 mg DAILY [facility] Administration Ferric Sodium Gluconate Complex 125 mg 10/28/17 10:00 10/31/17 09:10 Ferrlecit IVPB 11/05/17 10:01 125 mg DAILY [facility] Administration Furosemide 20 mg 10/27/17 10:00 10/31/17 09:10 Lasix PO 20 mg DAILY [facility] Administration Heparin Sodium (Porcine) 5,000 units 10/30/17 22:00 10/31/17 13:02 Heparin SC 5,000 units Q8 [facility] Administration Hydralazine HCl 10 mg 10/30/17 10:52 10/31/17 06:44 Apresoline IVP 10 mg Q4H PRN Administration hypertension Hydralazine HCl 10 mg 10/31/17 14:00 10/31/17 13:01 Apresoline PO 10 mg QID [facility] Administration Potassium Chloride 20 meq in 100 mls @ 25 mls/hr 10/31/17 10:15 10/31/17 11: 30 Potassium Chloride 20 Meq/100 Ml IVPB 10/31/17 14:14 25 mls/hr ONCE ONE Administration Metoprolol Tartrate 5 mg 10/28/17 17:00 10/31/17 09:33 Lopressor IVP 5 mg Q6H PRN Administration for SBP >140mmHg Metoprolol Tartrate 50 mg 10/31/17 10:30 10/31/17 12:02 Lopressor PO 50 mg BID [facility] Administration Pantoprazole Sodium 40 mg 10/30/17 10:15 10/31/17 12:02 Protonix Ec Tab PO 40 mg BID [facility] Administration Rosuvastatin Calcium 10 mg 10/26/17 22:00 10/30/17 21:30 Crestor PO 10 mg HS [facility] Administration Vitamin A 1 ea 10/26/17 17:56 10/26/17 18:03 Vitamin A & D Oint Ud Foilpak TOP 1 ea Q6H PRN Administration Dry skin - Patient Studies Lab Studies: Lab Studies 10/31/17 10/31/17 Range/Units 06:48 06:48 WBC 8.7 (4.8-10.8) K/uL RBC 2.56 L (4.40-5.90) Mil/uL Hgb 8.0 L (12.0-18.0) g/dL Hct 23.6 L (35.0-51.0) % MCV 92.3 (80.0-94.0) fL MCH 31.1 H (27.0-31.0) pg MCHC 33.8 (33.0-37.0) g/dL RDW 15.8 H (11.5-14.5) % Plt Count 236 (130-400) K/uL MPV 9.2 (7.2-11.7) fL Neut % (Auto) 83.5 H (50.0-75.0) % Lymph % (Auto) 6.5 L (20.0-40.0) % Emanuel % (Auto) 9.4 (0.0-10.0) % Eos % (Auto) 0.1 (0.0-4.0) % Baso % (Auto) 0.5 (0.0-2.0) % Neut # 7.3 H (1.8-7.0) K/uL Lymph # 0.6 L (1.0-4.3) K/uL Emanuel # 0.8 (0.0-0.8) K/uL Eos # 0.0 (0.0-0.7) K/uL Baso # 0.0 (0.0-0.2) K/uL Neutrophils % (Manual) 82 H (50-75) % Band Neutrophils % 1 (0-2) % Lymphocytes % (Manual) 7 L (20-40) % Monocytes % (Manual) 9 (0-10) % Basophils % (Manual) 1 (0-2) % Platelet Estimate Normal (NORMAL) Anisocytosis (manual) Slight Ovalocytes Slight Sodium 147 (132-148) mmol/L Potassium 3.2 L (3.6-5.2) mmol/L Chloride 114 H (98-107) mmol/L Carbon Dioxide 28 (22-30) mmol/L Anion Gap 8 L (10-20) BUN 36 H (9-20) mg/dL Creatinine 1.2 (0.8-1.5) mg/dL Est GFR ( Amer) > 60 Est GFR (Non-Af Amer) 59 Random Glucose 250 H (75-110) mg/dL Calcium 8.0 L (8.6-10.4) mg/dl Phosphorus 2.9 (2.5-4.5) mg/dL Magnesium 2.0 (1.6-2.3) mg/dL Total Bilirubin 0.4 (0.2-1.3) mg/dL AST 36 (17-59) U/L ALT 37 (21-72) U/L Alkaline Phosphatase 64 (38-126) U/L Total Protein 5.1 L (6.3-8.3) g/dL Albumin 2.8 L (3.5-5.0) g/dL Globulin 2.3 (2.2-3.9) gm/dL Albumin/Globulin Ratio 1.2 (1.0-2.1) Laboratory Results - last 24 hr 10/31/17 10/31/17 06:48 06:48 WBC 8.7 RBC 2.56 L Hgb 8.0 L Hct 23.6 L MCV 92.3 MCH 31.1 H MCHC 33.8 RDW 15.8 H Plt Count 236 MPV 9.2 Neut % (Auto) 83.5 H Lymph % (Auto) 6.5 L Emanuel % (Auto) 9.4 Eos % (Auto) 0.1 Baso % (Auto) 0.5 Neut # 7.3 H Lymph # 0.6 L Emanuel # 0.8 Eos # 0.0 Baso # 0.0 Neutrophils % (Manual) 82 H Band Neutrophils % 1 Lymphocytes % (Manual) 7 L Monocytes % (Manual) 9 Basophils % (Manual) 1 Platelet Estimate Normal Anisocytosis (manual) Slight Ovalocytes Slight Sodium 147 Potassium 3.2 L Chloride 114 H Carbon Dioxide 28 Anion Gap 8 L BUN 36 H Creatinine 1.2 Est GFR ( Amer) > 60 Est GFR (Non-Af Amer) 59 Random Glucose 250 H Calcium 8.0 L Phosphorus 2.9 Magnesium 2.0 Total Bilirubin 0.4 AST 36 ALT 37 Alkaline Phosphatase 64 Total Protein 5.1 L Albumin 2.8 L Globulin 2.3 Albumin/Globulin Ratio 1.2 Critical Care Progress Note - Nutrition Nutrition: Nutrition Category Date Time Status NPO Diet [DIET] Diets 10/28/17 Breakfast Active Assessment/Plan - Assessment and Plan (Free Text) Plan: Patient with h/o Gi Bleed gastric ulcer with a bleeding vessel which was cauterized also having stroke (ischemic). Patient's risks of Gi bleed due to full dose anticoagulation more than risk of additional disability from repeated strokes. -Patient remains hemodynamically stable. Tolerating ng tube feeds, but unable to do speech and swallow eval. -continue current management -contineu DVT/PUD ppx Patient remains hemoduynamically stabl. - Date & Time Date: 10/31/17 Time: 16:54
[2017-10-31] MEDS ORDERED: Potassium Chloride 20 mEq/15 ml LIQ UD PO ONE (10:30)
[2017-10-31 11:07] LABS: BASOPHIL 1 % (0-2); NEUTROPHIL 82 % (50-75); TOTAL CELLS COUNTED 100
[2017-10-31] MEDS: Pantoprazole 40 mg EC Tab PO SCH ×2 (12:02→18:24)
--- NOTE | 2017-10-31 16:04 | CP.PCM.PN ---
Subjective - Date & Time of Evaluation Date of Evaluation: 10/31/17 Time of Evaluation: 12:20 - Subjective Subjective: clinically same Objective - Vital Signs/Intake and Output Vital Signs (last 24 hours): Temp Pulse Resp BP Pulse Ox 98.0 F 73 27 H 123/60 99 10/31/17 12:00 10/31/17 13:07 10/31/17 13:07 10/31/17 13:07 10/31/17 13:07 Intake and Output: 10/31/17 10/31/17 06:59 18:59 Intake Total 575 360 Output Total 400 Balance 175 360 - Medications Medications: Current Medications Aspirin (Aspirin Chewable) 81 mg PO DAILY [facility] Last Admin: 10/31/17 09:10 Dose: 81 mg Citalopram Hydrobromide (Celexa) 10 mg PO DAILY [facility] Last Admin: 10/31/17 09:10 Dose: 10 mg Ferric Sodium Gluconate Complex (Ferrlecit) 125 mg IVPB DAILY [facility] Stop: 11/05/17 10:01 Last Admin: 10/31/17 09:10 Dose: 125 mg Furosemide (Lasix) 20 mg PO DAILY [facility] Last Admin: 10/31/17 09:10 Dose: 20 mg Heparin Sodium (Porcine) (Heparin) 5,000 units SC Q8 [facility] Last Admin: 10/31/17 13:02 Dose: 5,000 units Hydralazine HCl (Apresoline) 10 mg IVP Q4H PRN PRN Reason: hypertension Last Admin: 10/31/17 06:44 Dose: 10 mg Hydralazine HCl (Apresoline) 10 mg PO QID [facility] Last Admin: 10/31/17 13:01 Dose: 10 mg Metoprolol Tartrate (Lopressor) 5 mg IVP Q6H PRN PRN Reason: for SBP >140mmHg Last Admin: 10/31/17 09:33 Dose: 5 mg Metoprolol Tartrate (Lopressor) 50 mg PO BID [facility] Last Admin: 10/31/17 12:02 Dose: 50 mg Pantoprazole Sodium (Protonix Ec Tab) 40 mg PO BID [facility] Last Admin: 10/31/17 12:02 Dose: 40 mg Rosuvastatin Calcium (Crestor) 10 mg PO HS [facility] Last Admin: 10/30/17 21:30 Dose: 10 mg Vitamin A (Vitamin A & D Oint Ud Foilpak) 1 ea TOP Q6H PRN PRN Reason: Dry skin Last Admin: 10/26/17 18:03 Dose: 1 ea - Labs Labs: 10/31/17 06:48 10/31/17 06:48 PT 12.3 SECONDS (9.7-12.2) H 10/28/17 03:42 INR 1.1 10/28/17 03:42 APTT 25 SECONDS (21-34) 10/25/17 09:00 - Constitutional Appears: Well - Head Exam Head Exam: ATRAUMATIC, NORMAL INSPECTION, NORMOCEPHALIC - Eye Exam Eye Exam: EOMI, Normal appearance, PERRL Pupil Exam: NORMAL ACCOMODATION, PERRL - ENT Exam ENT Exam: Mucous Membranes Moist, Normal Exam - Neck Exam Neck Exam: Full ROM, Normal Inspection. absent: Lymphadenopathy - Respiratory Exam Respiratory Exam: Decreased Breath Sounds - Cardiovascular Exam Cardiovascular Exam: REGULAR RHYTHM, +S1, +S2 - GI/Abdominal Exam GI & Abdominal Exam: Soft, Diminished Bowel Sounds - Rectal Exam Rectal Exam: Deferred
[2017-11-01 06:28] LABS: BASO % 0.4 % (0.0-2.0); EOS % 0.3 % (0.0-4.0); HEMATOCRIT 24.8 % (35.0-51.0); LYMPH # 0.8 K/uL (1.0-4.3); LYMPH % 8.2 % (20.0-40.0); MEAN CELL VOLUME 92.8 fL (80.0-94.0); MEAN CORPUSCULAR HEMOGLOBIN 30.4 pg (27.0-31.0); MEAN CORPUSCULAR HGB CONC 32.7 g/dL (33.0-37.0); MEAN PLATELET VOLUME 9.6 fL (7.2-11.7); MONO # 0.8 K/uL (0.0-0.8); MONO % 9.2 % (0.0-10.0); NRBC % 0.1 % (0.0-2.0); PLATELET COUNT 249 K/uL (130-400); WHITE BLOOD COUNT 9.2 K/uL (4.8-10.8)
[2017-11-01 06:48] LABS: ALB/GLOB RATIO 1.2 (1.0-2.1); ALKALINE PHOSPHATASE 65 U/L (38-126); ALT/SGPT 24 U/L (21-72); AST/SGOT 29 U/L (17-59); BILIRUBIN,TOTAL 0.3 mg/dL (0.2-1.3); BLOOD UREA NITROGEN 32 mg/dL (9-20); CALCIUM 8.1 mg/dl (8.6-10.4); CARBON DIOXIDE 31 mmol/L (22-30); CHLORIDE 115 mmol/L (98-107); GFR AFRICAN-AMERICAN > 60; GLUCOSE,RANDOM 141 mg/dL (75-110); POTASSIUM 3.6 mmol/L (3.6-5.2); SODIUM 150 mmol/L (132-148); TOTAL PROTEIN 5.3 g/dL (6.3-8.3)
[2017-11-01] MEDS: Vitamins A & D Oint UD Foilpak TOP PRN (09:10)
[2017-11-01] MEDS: Ferric Sodium Gluconat Complex 62.5 mg/5 ml Vial IVPB SCH (09:10)
[2017-11-01] MEDS: Pantoprazole 40 mg Susp UD PO SCH ×2 (09:16→17:07)
[2017-11-01 10:04] LABS: BASOPHIL 1 % (0-2); NEUTROPHIL 82 % (50-75); TOTAL CELLS COUNTED 100
[2017-11-01 10:06] LABS: SPHEROCYTES SLIGHT
--- NOTE | 2017-11-01 10:08 | CP.PCM.PN ---
Subjective - Date & Time of Evaluation Date of Evaluation: 11/01/17 Time of Evaluation: 10:05 - Subjective Subjective: Mr. Tilley was seen and examined at the bedside He is awake and able to follow simple commands such as squeezing his right hand and moving his right toes. His pupils are very sluggish to react. He tries to mumble some words but incomprehensible. Previous CT of the head showed no intracranial hemorrhage and no hydrocephalus but the infarcted territory expanded.There was no untoward events overnight. Objective - Vital Signs/Intake and Output Vital Signs (last 24 hours): Temp Pulse Resp BP Pulse Ox 98.8 F 93 H 30 H 167/58 H 100 11/01/17 04:00 11/01/17 08:06 11/01/17 08:06 11/01/17 08:06 11/01/17 08:06 Intake and Output: 11/01/17 11/01/17 06:59 18:59 Intake Total 365 90 Output Total 900 Balance -535 90 - Medications Medications: Current Medications Aspirin (Aspirin Chewable) 81 mg PO DAILY [facility] Last Admin: 11/01/17 09:10 Dose: 81 mg Citalopram Hydrobromide (Celexa) 10 mg PO DAILY [facility] Last Admin: 11/01/17 09:10 Dose: 10 mg Ferric Sodium Gluconate Complex (Ferrlecit) 125 mg IVPB DAILY [facility] Stop: 11/05/17 10:01 Last Admin: 11/01/17 09:10 Dose: 125 mg Heparin Sodium (Porcine) (Heparin) 5,000 units SC Q8 [facility] Last Admin: 11/01/17 05:06 Dose: 5,000 units Hydralazine HCl (Apresoline) 10 mg IVP Q4H PRN PRN Reason: hypertension Last Admin: 11/01/17 05:06 Dose: 10 mg Hydralazine HCl (Apresoline) 10 mg PO QID [facility] Last Admin: 11/01/17 09:10 Dose: 10 mg Metoprolol Tartrate (Lopressor) 5 mg IVP Q6H PRN PRN Reason: for SBP >140mmHg Last Admin: 10/31/17 09:33 Dose: 5 mg Metoprolol Tartrate (Lopressor) 50 mg PO BID [facility] Last Admin: 11/01/17 09:10 Dose: 50 mg Pantoprazole Sodium (Protonix Susp) 40 mg PO BID [facility] Last Admin: 11/01/17 09:16 Dose: 40 mg Rosuvastatin Calcium (Crestor) 10 mg PO HS [facility] Last Admin: 10/31/17 21:53 Dose: 10 mg Vitamin A (Vitamin A & D Oint Ud Foilpak) 1 ea TOP Q6H PRN PRN Reason: Dry skin Last Admin: 11/01/17 09:10 Dose: 1 ea - Labs Labs: 11/01/17 06:21 11/01/17 06:15 PT 12.3 SECONDS (9.7-12.2) H 10/28/17 03:42 INR 1.1 10/28/17 03:42 APTT 25 SECONDS (21-34) 10/25/17 09:00 - Constitutional Appears: No Acute Distress - Head Exam Head Exam: NORMAL INSPECTION - Neurological Exam Neurological Exam: Awake Neuro motor strength exam: Left Upper Extremity: 0, Right Upper Extremity: 2/1, Left Lower Extremity: 0, Right Lower Extremity: 2/1 Additional comments: The strength of the right arm decrease and able to follow simple commands such as squeezing his right hand and move his right toes. Sensation remains asymmetrical. Assessment and Plan (1) Acute CVA (cerebrovascular accident) Assessment & Plan: Case discussed with Dr. Brandon, continue all current medical regimen Will stop heparin 5000 units SQ Q 8. start Eliquis 2.5 mg via NGT BID. will repeat CT of the head without contrast. Status: Acute
--- NOTE | 2017-11-01 12:24 | CT ---
PROCEDURE: CT HEAD WITHOUT CONTRAST. HISTORY: follow up ICH COMPARISON: Comparison is made to 10/28/2017 TECHNIQUE: Axial computed tomography images were obtained through the head/brain without intravenous contrast. Radiation dose: Total exam DLP = 1045.71 mGy-cm. This CT exam was performed using one or more of the following dose reduction techniques: Automated exposure control, adjustment of the mA and/or kV according to patient size, and/or use of iterative reconstruction technique. FINDINGS: HEMORRHAGE: No evidence of parenchymal hematoma. Linear high attenuation is noted at the large right MCA infarction likely represent petechial hemorrhage and CT fogging phenomena. BRAIN: Interval increase in the edema surrounding the right MCA large infarct which resulting in mass effect and increased in the size of the right to left subfalcine herniation measures 8 millimeter in the current study. Periventricular chronic microvascular white matter ischemic changes are again noted. VENTRICLES: The ventricles are otherwise mildly dilated. CALVARIUM: Unremarkable. PARANASAL SINUSES: Complete opacification of the left maxillary sinus is noted. MASTOID AIR CELLS: Unremarkable as visualized. No inflammatory changes. OTHER FINDINGS: None. IMPRESSION: Re- demonstration of large right MCA territory infarct. Linear cortical foci of high attenuation are noted at the infarcted area likely represent petechial hemorrhage and CT fogging phenomena in the subacute infarction. No evidence of hemorrhagic transformation of the right MCA infarction. Interval increase in the size of the surrounding edema around the infarcted area which resulting in mild interval worsening of the mass effect and [id number] midline shift since the previous exam.
--- NOTE | 2017-11-01 13:35 | CP.PCM.PN ---
Subjective - Date & Time of Evaluation Date of Evaluation: 11/01/17 Time of Evaluation: 13:23 - Subjective Subjective: Patient follow commands minimally as only clear motor activity control has is squeezing with right hand, responds when greeted with head shake, no proper words. Patient on exam also noticed only 1/5 movement on right leg side, no movement on the left arm and leg. RR was increased but maintained spo2 on 2lit. A repeat CT of brain done hyperdensity seen at the cortical area of the infarcted Right MCA territory, which d/w radiology and nerurology felt is reaction to the recent infarct, also noticed worsening in the swelling and subfalcine herneation. Hemoglobin is maintained, hypernatremia likely from lasix noticed. Objective - Vital Signs/Intake and Output Vital Signs (last 24 hours): Temp Pulse Resp BP Pulse Ox 99.4 F 78 24 140/55 L 99 11/01/17 08:00 11/01/17 11:28 11/01/17 11:28 11/01/17 11:28 11/01/17 11:28 Intake and Output: 11/01/17 11/01/17 06:59 18:59 Intake Total 365 225 Output Total 900 Balance -535 225 - Medications Medications: Current Medications Apixaban (Eliquis) 2.5 mg PO BID [facility] Aspirin (Aspirin Chewable) 81 mg PO DAILY [facility] Last Admin: 11/01/17 09:10 Dose: 81 mg Citalopram Hydrobromide (Celexa) 10 mg PO DAILY [facility] Last Admin: 11/01/17 09:10 Dose: 10 mg Dexamethasone (Decadron Inj) 4 mg IVP Q12H [facility] Ferric Sodium Gluconate Complex (Ferrlecit) 125 mg IVPB DAILY [facility] Stop: 11/05/17 10:01 Last Admin: 11/01/17 09:10 Dose: 125 mg Hydralazine HCl (Apresoline) 10 mg IVP Q4H PRN PRN Reason: hypertension Last Admin: 11/01/17 05:06 Dose: 10 mg Hydralazine HCl (Apresoline) 10 mg PO QID [facility] Last Admin: 11/01/17 09:10 Dose: 10 mg Metoprolol Tartrate (Lopressor) 5 mg IVP Q6H PRN PRN Reason: for SBP >140mmHg Last Admin: 10/31/17 09:33 Dose: 5 mg Metoprolol Tartrate (Lopressor) 50 mg PO BID [facility] Last Admin: 11/01/17 09:10 Dose: 50 mg Pantoprazole Sodium (Protonix Susp) 40 mg PO BID [facility] Last Admin: 11/01/17 09:16 Dose: 40 mg Rosuvastatin Calcium (Crestor) 10 mg PO HS [facility] Last Admin: 10/31/17 21:53 Dose: 10 mg Vitamin A (Vitamin A & D Oint Ud Foilpak) 1 ea TOP Q6H PRN PRN Reason: Dry skin Last Admin: 11/01/17 09:10 Dose: 1 ea - Labs Labs: 11/01/17 06:21 11/01/17 06:15 PT 12.3 SECONDS (9.7-12.2) H 10/28/17 03:42 INR 1.1 10/28/17 03:42 APTT 25 SECONDS (21-34) 10/25/17 09:00 - Additional Findings Additional findings: * HEENT ADALID, ng tube * Neck supple * Chest Clear, increased RR * CVS regular, no galop or rub * PA soft, nt bs present * Ext no edema * STATEMENT SERVICES REPRESENTATIVE see subjective Assessment and Plan - Assessment and Plan (Free Text) Assessment: * Right MCA territory infarct with swelling mass effect d/w neurology started on eliquis 2.5mg bid, decadron, will check osm if < 320 can start hypertonic saline vs mannitol * LA stable CV over last 24 hrs * GI bleed s/p clipping of vessel in ulcer, and embolization by IR hence can start anticoagulation * H/o prior strokes * DNR, not DNI * Overall poor prognosis * See orders for detail.
--- NOTE | 2017-11-01 14:38 | RAD ---
HISTORY: tachypnea COMPARISON: Comparison is made to 10/30/2017 FINDINGS: LUNGS: Interval improvement in the previously seen diffuse heterogeneous opacity at the left lung since the previous exam. PLEURA: No significant pleural effusion identified, no pneumothorax apparent. CARDIOVASCULAR: Normal. OSSEOUS STRUCTURES: No significant abnormalities. VISUALIZED UPPER ABDOMEN: The NG tube seen extending to the abdomen. OTHER FINDINGS: None. IMPRESSION: Interval significant improvement in the left lung since the previous study.
[2017-11-01 15:55] LABS: DRAW SITE RBA
[2017-11-01] MEDS ORDERED: Dexamethasone 4 mg/1 ml IVP SCH (16:00)
[2017-11-01 16:12] VITALS: TEMP 99.1
--- NOTE | 2017-11-01 16:55 | CP.PCM.PN ---
Subjective - Date & Time of Evaluation Date of Evaluation: 11/01/17 Time of Evaluation: 13:20 - Subjective Subjective: clinically same Objective - Vital Signs/Intake and Output Vital Signs (last 24 hours): Temp Pulse Resp BP Pulse Ox 99.1 F 87 33 H 160/73 H 97 11/01/17 16:00 11/01/17 16:06 11/01/17 16:06 11/01/17 16:06 11/01/17 16:06 Intake and Output: 11/01/17 11/01/17 06:59 18:59 Intake Total 365 360 Output Total 900 225 Balance -535 135 - Medications Medications: Current Medications Apixaban (Eliquis) 2.5 mg PO BID [facility] Aspirin (Aspirin Chewable) 81 mg PO DAILY [facility] Last Admin: 11/01/17 09:10 Dose: 81 mg Citalopram Hydrobromide (Celexa) 10 mg PO DAILY [facility] Last Admin: 11/01/17 09:10 Dose: 10 mg Dexamethasone (Decadron Inj) 4 mg IVP Q12H [facility] Last Admin: 11/01/17 16:23 Dose: 4 mg Ferric Sodium Gluconate Complex (Ferrlecit) 125 mg IVPB DAILY [facility] Stop: 11/05/17 10:01 Last Admin: 11/01/17 09:10 Dose: 125 mg Hydralazine HCl (Apresoline) 10 mg IVP Q4H PRN PRN Reason: hypertension Last Admin: 11/01/17 15:30 Dose: 10 mg Hydralazine HCl (Apresoline) 10 mg PO QID [facility] Last Admin: 11/01/17 14:06 Dose: 10 mg Metoprolol Tartrate (Lopressor) 5 mg IVP Q6H PRN PRN Reason: for SBP >140mmHg Last Admin: 10/31/17 09:33 Dose: 5 mg Metoprolol Tartrate (Lopressor) 50 mg PO BID [facility] Last Admin: 11/01/17 09:10 Dose: 50 mg Pantoprazole Sodium (Protonix Susp) 40 mg PO BID [facility] Last Admin: 11/01/17 09:16 Dose: 40 mg Rosuvastatin Calcium (Crestor) 10 mg PO HS [facility] Last Admin: 10/31/17 21:53 Dose: 10 mg Vitamin A (Vitamin A & D Oint Ud Foilpak) 1 ea TOP Q6H PRN PRN Reason: Dry skin Last Admin: 11/01/17 09:10 Dose: 1 ea - Labs Labs: 11/01/17 06:21 11/01/17 06:15 PT 12.3 SECONDS (9.7-12.2) H 10/28/17 03:42 INR 1.1 10/28/17 03:42 APTT 25 SECONDS (21-34) 10/25/17 09:00 - Constitutional Appears: Well - Head Exam Head Exam: ATRAUMATIC, NORMAL INSPECTION, NORMOCEPHALIC - Eye Exam Eye Exam: EOMI, Normal appearance, PERRL Pupil Exam: NORMAL ACCOMODATION, PERRL - ENT Exam ENT Exam: Mucous Membranes Moist, Normal Exam - Neck Exam Neck Exam: Full ROM, Normal Inspection. absent: Lymphadenopathy - Respiratory Exam Respiratory Exam: Decreased Breath Sounds - Cardiovascular Exam Cardiovascular Exam: REGULAR RHYTHM, +S1, +S2 - GI/Abdominal Exam GI & Abdominal Exam: Soft, Diminished Bowel Sounds - Rectal Exam Rectal Exam: Deferred
[2017-11-01 17:22] VITALS: O2SAT 98
[2017-11-01 18:25] VITALS: BP 136/78; PULSE 69; RESP 36
--- NOTE | 2017-11-01 18:30 | CP.PCM.PN ---
Subjective - Date & Time of Evaluation Date of Evaluation: 10/31/17 Time of Evaluation: 17:00 - Subjective Subjective: Appears comfortable Objective - Vital Signs/Intake and Output Vital Signs (last 24 hours): Temp Pulse Resp BP Pulse Ox 99.1 F 69 36 H 136/78 98 11/01/17 16:00 11/01/17 18:07 11/01/17 18:07 11/01/17 18:07 11/01/17 17:06 Intake and Output: 11/01/17 11/01/17 06:59 18:59 Intake Total 365 405 Output Total 900 325 Balance -535 80 - Medications Medications: Current Medications Apixaban (Eliquis) 2.5 mg PO BID [facility] Last Admin: 11/01/17 17:07 Dose: 2.5 mg Aspirin (Aspirin Chewable) 81 mg PO DAILY [facility] Last Admin: 11/01/17 09:10 Dose: 81 mg Citalopram Hydrobromide (Celexa) 10 mg PO DAILY [facility] Last Admin: 11/01/17 09:10 Dose: 10 mg Dexamethasone (Decadron Inj) 4 mg IVP Q12H [facility] Last Admin: 11/01/17 16:23 Dose: 4 mg Ferric Sodium Gluconate Complex (Ferrlecit) 125 mg IVPB DAILY [facility] Stop: 11/05/17 10:01 Last Admin: 11/01/17 09:10 Dose: 125 mg Hydralazine HCl (Apresoline) 10 mg IVP Q4H PRN PRN Reason: hypertension Last Admin: 11/01/17 15:30 Dose: 10 mg Hydralazine HCl (Apresoline) 10 mg PO QID [facility] Last Admin: 11/01/17 17:07 Dose: 10 mg Metoprolol Tartrate (Lopressor) 5 mg IVP Q6H PRN PRN Reason: for SBP >140mmHg Last Admin: 10/31/17 09:33 Dose: 5 mg Metoprolol Tartrate (Lopressor) 50 mg PO BID [facility] Last Admin: 11/01/17 17:07 Dose: 50 mg Pantoprazole Sodium (Protonix Susp) 40 mg PO BID [facility] Last Admin: 11/01/17 17:07 Dose: 40 mg Rosuvastatin Calcium (Crestor) 10 mg PO HS [facility] Last Admin: 10/31/17 21:53 Dose: 10 mg Vitamin A (Vitamin A & D Oint Ud Foilpak) 1 ea TOP Q6H PRN PRN Reason: Dry skin Last Admin: 11/01/17 09:10 Dose: 1 ea - Labs Labs: 11/01/17 06:21 11/01/17 06:15 PT 12.3 SECONDS (9.7-12.2) H 10/28/17 03:42 INR 1.1 10/28/17 03:42 APTT 25 SECONDS (21-34) 10/25/17 09:00 - Head Exam Head Exam: ATRAUMATIC - Eye Exam Eye Exam: Normal appearance - ENT Exam ENT Exam: Mucous Membranes Dry - Respiratory Exam Respiratory Exam: Decreased Breath Sounds - Cardiovascular Exam Cardiovascular Exam: +S1, +S2 - GI/Abdominal Exam GI & Abdominal Exam: Normal Bowel Sounds Assessment and Plan (1) Anemia Assessment & Plan: GI bleeding EGD revealed gastritis and duodenal ulcer s/p IR embolization borderline iron stores on IV iron transfusion support PRN Status: Acute
--- NOTE | 2017-11-01 19:42 | CP.PCM.PRO ---
Pronouncement of Note - Clinical Findings Physical Exam: No Response Verbal/Painful Stimuli, Absent Peripheral Pulses{ Carotid & Femoral}, Absent Heart & Breath Sounds, No Pupillary Light Reflex, No Corneal Reflex, Pupils Fixed & Dilated, Absence of Vital Signs - Pronouncement Time Time of Pronouncement of : 19:28 - Notifications Pronouncement Notifications: Family Notified (At the bedside, 2 daughters) [employer] Notified: No - Autopsy Autopsy Requested: No - [place] [id number]
--- NOTE | 2017-11-01 22:05 | CP.PCM.PN ---
Subjective - Date & Time of Evaluation Date of Evaluation: 11/01/17 Time of Evaluation: 09:25 - Subjective Subjective: Covering for Dr Cunningham. Pt seen with family at bedside. Pt admitted for new CVA and elevated trops. 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 Objective - Vital Signs/Intake and Output Vital Signs (last 24 hours): Temp Pulse Resp BP Pulse Ox 99.1 F 69 36 H 136/78 98 11/01/17 16:00 11/01/17 18:07 11/01/17 18:07 11/01/17 18:07 11/01/17 17:06 Intake and Output: 11/01/17 11/02/17 18:59 06:59 Intake Total 405 Output Total 325 Balance 80 - Medications Medications: Current Medications Apixaban (Eliquis) 2.5 mg PO BID [facility] Last Admin: 11/01/17 17:07 Dose: 2.5 mg Aspirin (Aspirin Chewable) 81 mg PO DAILY [facility] Last Admin: 11/01/17 09:10 Dose: 81 mg Citalopram Hydrobromide (Celexa) 10 mg PO DAILY [facility] Last Admin: 11/01/17 09:10 Dose: 10 mg Dexamethasone (Decadron Inj) 4 mg IVP Q12H [facility] Last Admin: 11/01/17 16:23 Dose: 4 mg Ferric Sodium Gluconate Complex (Ferrlecit) 125 mg IVPB DAILY [facility] Stop: 11/05/17 10:01 Last Admin: 11/01/17 09:10 Dose: 125 mg Hydralazine HCl (Apresoline) 10 mg IVP Q4H PRN PRN Reason: hypertension Last Admin: 11/01/17 15:30 Dose: 10 mg Hydralazine HCl (Apresoline) 10 mg PO QID [facility] Last Admin: 11/01/17 17:07 Dose: 10 mg Metoprolol Tartrate (Lopressor) 5 mg IVP Q6H PRN PRN Reason: for SBP >140mmHg Last Admin: 10/31/17 09:33 Dose: 5 mg Metoprolol Tartrate (Lopressor) 50 mg PO BID [facility] Last Admin: 11/01/17 17:07 Dose: 50 mg Pantoprazole Sodium (Protonix Susp) 40 mg PO BID [facility] Last Admin: 11/01/17 17:07 Dose: 40 mg Rosuvastatin Calcium (Crestor) 10 mg PO HS [facility] Last Admin: 10/31/17 21:53 Dose: 10 mg Vitamin A (Vitamin A & D Oint Ud Foilpak) 1 ea TOP Q6H PRN PRN Reason: Dry skin Last Admin: 11/01/17 09:10 Dose: 1 ea - Labs Labs: 11/01/17 06:21 11/01/17 06:15 PT 12.3 SECONDS (9.7-12.2) H 10/28/17 03:42 INR 1.1 10/28/17 03:42 APTT 25 SECONDS (21-34) 10/25/17 09:00 - Constitutional Appears: Non-toxic - Head Exam Head Exam: NORMAL INSPECTION - Eye Exam Eye Exam: absent: Scleral icterus - Neck Exam Neck Exam: Full ROM - Respiratory Exam Respiratory Exam: Clear to Ausculation Bilateral - Cardiovascular Exam Cardiovascular Exam: REGULAR RHYTHM - GI/Abdominal Exam GI & Abdominal Exam: Soft - Extremities Exam Extremities Exam: absent: Pedal Edema Assessment and Plan - Assessment and Plan (Free Text) Assessment: CVA CAD HTN Plan: For cath as per Dr Cunningham on Thursday. Cont w/ anti-platelets.
== END 2017-11-01 19:28 | DRG 64 ==
LOC: C.ER 08:56 → C.9E 11:06 → EDBD 11:06 → C.9I 11:09
PROVIDERS: ADMIT Internal Medicine Nephrology; ATTEND Internal Medicine Nephrology
PROC: 30233N1 Transfusion of Nonautologous Red Blood Cells into Peripheral Vein, Percutaneous Approach (ICD-10-PCS; 2017-10-26)
PROC: 0W3P8ZZ Control Bleeding in Gastrointestinal Tract, Via Natural or Artificial Opening Endoscopic (ICD-10-PCS; principal; 2017-10-28 12:19)
PROC: 04L23DZ Occlusion of Gastric Artery with Intraluminal Device, Percutaneous Approach (ICD-10-PCS; 2017-10-29)
PROC: B400YZZ Plain Radiography of Abdominal Aorta using Other Contrast (ICD-10-PCS; 2017-10-29)
DX: I63.411 Cerebral infarction due to embolism of right middle cerebral artery (principal); I21.4 Non-ST elevation (NSTEMI) myocardial infarction; E87.3 Alkalosis; K26.4 Chronic or unspecified duodenal ulcer with hemorrhage; E87.0 Hyperosmolality and hypernatremia; G81.94 Hemiplegia, unspecified affecting left nondominant side; D50.0 Iron deficiency anemia secondary to blood loss (chronic); E11.9 Type 2 diabetes mellitus without complications; I69.354 Hemiplegia and hemiparesis following cerebral infarction affecting left non-dominant side; I49.01 Ventricular fibrillation; R47.01 Aphasia; I10 Essential (primary) hypertension; K29.60 Other gastritis without bleeding; I25.10 Atherosclerotic heart disease of native coronary artery without angina pectoris; J32.0 Chronic maxillary sinusitis; R29.810 Facial weakness; R09.02 Hypoxemia; Z66 Do not resuscitate; Z79.02 Long term (current) use of antithrombotics/antiplatelets; Z87.891 Personal history of nicotine dependence; Z79.82 Long term (current) use of aspirin; I25.2 Old myocardial infarction